=== PATIENT | female | born 1955 | race Caucasian/White ===

== ENCOUNTER 2020-03-10 11:16 | Outpatient (REF) | payer MEDICARE, SELFPAY ==
[2020-03-10 12:42] LABS: Cholesterol 196 mg/dL; HDL Cholesterol 68 mg/dL; LDL Cholesterol Calculated 119 mg/dl; Triglycerides 46 mg/dL
== END 2020-03-10 11:17 | disposition home or self-care (01) ==
LOC: HO.LAB 11:16
PROVIDERS: PCP Internal Medicine; Visit Provider Internal Medicine
DX: M81.0 Age-related osteoporosis without current pathological fracture (principal); Z00.00 Encounter for general adult medical examination without abnormal findings; E78.2 Mixed hyperlipidemia
CPT/HCPCS: 80061; 82306

== ENCOUNTER 2020-06-03 13:03 | Outpatient (REF) | payer MEDICARE, SELFPAY ==
[2020-06-03 14:10] LABS: Hematocrit 40.6 % (37-47); Mean Corpuscular Hemoglobin 29.1 pg (27.0-33.0); Mean Corpuscular Volume 90.8 fL (80-98); Mean Platelet Volume 12.7 fL (9.4-12.3); Platelet Count 175 X10*3/uL (160-400); Red Blood Count 4.47 X10*6/uL (4.20-5.50); Red Cell Distribution Width 14.8 % (11.0-16.0); White Blood Count 4.2 X10*3/uL (4.8-10.8)
== END 2020-06-03 13:04 | disposition home or self-care (01) ==
LOC: HO.LAB 13:03
PROVIDERS: PCP Internal Medicine; Visit Provider Internal Medicine
DX: D64.9 Anemia, unspecified (principal)
CPT/HCPCS: 36415; 85027

== ENCOUNTER 2020-07-29 12:13 | Outpatient (REF) | payer MEDICARE, SELFPAY ==
[2020-07-29 13:55] LABS: MANUAL DIFF FLAG NO
[2020-07-29 14:03] LABS: Basophils Percent Auto 0.9 % (0-2); Eosinophils Absolute Auto 0.1 X10*3/uL (0.0-0.4); Eosinophils Percent Auto 1.1 % (0-4); Hematocrit 39.6 % (37-47); Hemoglobin 12.5 g/dl (12.0-16.0); Imm Gran Abs Auto 0.01 X10*3/uL (0.00-0.03); Imm Gran Pct Auto 0.2 % (0.0-0.4); Lymphocytes Absolute Auto 1.3 X10*3/uL (1.2-4.9); Lymphocytes Percent Auto 28.7 % (20-40); Mean Corpuscular HGB Conc 31.6 g/dl (31.0-35.0); Mean Corpuscular Hemoglobin 28.5 pg (27.0-33.0); Mean Corpuscular Volume 90.4 fL (80-98); Mean Platelet Volume 12.4 fL (9.4-12.3); Monocytes Absolute Auto 0.5 X10*3/uL (0.1-1.2); Monocytes Percent Auto 10.3 % (2-11); Neutrophils Absolute Auto 2.6 X10*3/uL (2.0-8.3); Neutrophils Percent Auto 58.8 % (45-73); Platelet Count 191 X10*3/uL (160-400); Red Blood Count 4.38 X10*6/uL (4.20-5.50); White Blood Count 4.5 X10*3/uL (4.8-10.8)
[2020-07-29 14:29] LABS: Alanine Aminotransferase 16 U/L (0-31); Alkaline Phosphatase 80 U/L (39-117); Anion Gap 13 (12-20); Aspartate Amino Transferase 26 U/L (5-31); Bilirubin Direct 0.2 mg/dL (0.0-0.5); Bilirubin Total 0.5 mg/dL (0.0-1.0); Blood Urea Nitrogen 17 mg/dL (9-16); C Reactive Protein 0.17 mg/dL (< or = 0.50); Carbon Dioxide 23 mmol/L (22-29); Chloride 108 mmol/L (96-108); Estimated Glomerular Filt Rate > 60; Glucose Random 82 mg/dL (60-115); Potassium 4.3 mmol/L (3.3-5.1); Sodium 140 mmol/L (135-145); Total Protein 6.8 g/dL (6.5-8.0)
[2020-07-29 14:50] LABS: T4 Thyroxine 6.6 ug/dL (4.5-12.0); Thyroid Stimulating Hormone 1.16 uIU/mL (0.32-4.0)
[2020-07-29 15:03] LABS: Erythrocyte Sedimentation Rate 12 MM/HR (0-20)
[2020-07-30 13:57] LABS: Immunoglobulin A 214 mg/dL (70-320)
[2020-08-03 14:51] LABS: Gliadin Deamidated IgA Ab 3 Units; Gliadin Deamidated IgG Ab 2 Units
[2020-08-04 19:31] LABS: Transglutaminase Ab IgG 1 U/mL; Transglutaminase IgA 1 U/mL
[2020-08-05 15:41] LABS: Endomysial IgA Antibody Negative (Negative)
== END 2020-07-29 12:14 | disposition home or self-care (01) ==
LOC: HO.10HDL 12:13
PROVIDERS: Visit Provider Internal Medicine
DX: R19.4 Change in bowel habit (principal); R19.7 Diarrhea, unspecified; Z86.010 Personal history of colon polyps
CPT/HCPCS: 36415; 80051; 80076; 82565; 82784; 82947; 83516; 84436; 84443; 84520; 85025; 85652; 86140; 86255; 86256

== ENCOUNTER 2020-07-30 14:22 | Outpatient (REF) | payer MEDICARE, SELFPAY ==
[2020-07-30 15:16] LABS: Leukocytes Stool Qualitative NEGATIVE (NEGATIVE)
[2020-07-31 09:03] LABS: CDIFF Ag Negative (Negative); CDiff Toxin Negative (Negative)
[2020-07-31 09:04] LABS: CDIFF Internal ctrl Dots and bkg OK (V)
== END 2020-07-30 14:23 | disposition home or self-care (01) ==
LOC: HO.LNP 14:22
PROVIDERS: Visit Provider Internal Medicine
DX: R19.4 Change in bowel habit (principal); R19.7 Diarrhea, unspecified; Z86.010 Personal history of colon polyps
CPT/HCPCS: 87045; 87046; 87177; 87209; 87324; 87329; 87449; 89055

== ENCOUNTER 2020-08-26 21:45 | Outpatient (REF) | payer MEDICARE, SELFPAY | END 2020-08-26 21:46 | disposition home or self-care (01) | LOC: HO.LNP 21:45 | PROVIDERS: Visit Provider Internal Medicine | DX: A09 Infectious gastroenteritis and colitis, unspecified (principal) | CPT/HCPCS: 87177; 87209 ==

== ENCOUNTER 2020-09-15 06:39 | Day surgery (SDC) | payer MEDICARE, SELFPAY ==
--- NOTE | 2020-09-13 13:40 | HO.ANESPROP2 ---
Documented by User: Fatoumata Friedman 09/13/20 13:51 HPI - Anesthesia Eval Consult details Narrative: 64yo F for Colonoscopy PMFSH Active Problems Active Problems: All Active Problems (Updated 06/08/20 @ 11:24 by Olinda Donald NP) Diarrhea (Acute) Anemia (Acute) Vitamin D deficiency (Acute) Osteoporosis (Acute) Normal Pap smear (Acute) Normal colonoscopy (Acute) Lumbar degenerative disc disease (Acute) Mitral regurgitation (Acute) Hyperlipidemia (Acute) Past Medical History Medical History (Updated 09/15/20 @ 07:40 by Jaimie Potter) Anemia Depression History of mammogram Hyperlipidemia Lumbar degenerative disc disease Mitral regurgitation Normal colonoscopy Normal Pap smear Osteoporosis Vitamin D deficiency Family History Family History Father History of heart surgery Mother No problems noted. Maternal Grandfather Diabetes mellitus Maternal Grandmother No problems noted. Paternal Grandmother Cancer Surgical History Surgical History H/O colonoscopy History of laparoscopic appendectomy Social History Social History Alcohol intake: current Alcohol intake frequency: holidays/special occasions only Patient Tobacco Use Status: Never used Tobacco Use of substances other than those prescribed or required for medical reasons: No Are you DNR?: No Advance Directives: Yes Advance Directives on File: Yes Advance Directives Date on File: 09/15/20 Meds Allergies Allergy/AdvReac Type Severity Reaction Status Date / Time No Known Drug Allergies Allergy Unknown UNKNOWN Verified 06/08/20 10:31 Home Medications Medication Instructions Recorded Confirmed Last Taken Type escitalopram oxalate 10 mg tablet 15 mg PO DAILY 03/11/20 08/12/20 Unknown History flu vacc [id number](65yr up)-PF 240 ml IM 03/11/20 03/11/20 Unknown History mcg/0.7 mL intramuscular syringe varicella-zoster glycoE [id number] IM 03/11/20 03/11/20 Unknown History adj(PF) 50 mcg/0.5 mL IM susp, kit Exam Exam Date and Time: September 13, 2020 1340 Pertinent Lab Results Pertinent Lab Results: Laboratory Tests 07/29/20 07/29/20 12:20 12:20 WBC 4.5 L Hgb 12.5 Hct 39.6 Plt Count 191 Sodium 140 Potassium 4.3 Chloride 108 Carbon Dioxide 23 BUN 17 H Creatinine 0.82 Narrative Narrative: ECHO 2017 LV sys function normal. EF 60-65%. No RWMA. Mild MR Mild to mod TR Pulm artery systolic pressure is normal Assessment and Plan Assessment Anesthesia Assessment: Chart Reviewed Documented by User: Jaimie Potter 09/15/20 07:55 PMFSH Past Medical History Medical History (Updated 09/15/20 @ 07:40 by Jaimie Potter) Anemia Depression History of mammogram Hyperlipidemia Lumbar degenerative disc disease Mitral regurgitation Normal colonoscopy Normal Pap smear Osteoporosis Vitamin D deficiency Family History Family History Father History of heart surgery Mother No problems noted. Maternal Grandfather Diabetes mellitus Maternal Grandmother No problems noted. Paternal Grandmother Cancer Family history of problems with anesthesia: No Surgical History Surgical History H/O colonoscopy History of laparoscopic appendectomy History of Problems with Anesthesia: No Social History Social History Alcohol intake: current Alcohol intake frequency: holidays/special occasions only Patient Tobacco Use Status: Never used Tobacco Use of substances other than those prescribed or required for medical reasons: No Are you DNR?: No Advance Directives: Yes Advance Directives on File: Yes Advance Directives Date on File: 09/15/20 Meds Allergies Allergy/AdvReac Type Severity Reaction Status Date / Time No Known Drug Allergies Allergy Unknown UNKNOWN Verified 06/08/20 10:31 Home Medications Medication Instructions Recorded Confirmed Last Taken Type escitalopram oxalate 10 mg tablet 15 mg PO DAILY 03/11/20 08/12/20 Unknown History flu vacc [id number](65yr up)-PF 240 ml IM 03/11/20 03/11/20 Unknown History mcg/0.7 mL intramuscular syringe varicella-zoster glycoE [id number] IM 03/11/20 03/11/20 Unknown History adj(PF) 50 mcg/0.5 mL IM susp, kit Exam Height,Weight and Vital Signs: Vital Signs Temp Pulse Resp BP Pulse Ox 09/15/20 07:02 97.9 F 73 16 112/68 98 Pertinent Lab Results Pertinent Lab Results: 09/15/20: 12 lead EKG: SB 58. ?RBBB Airway Mallampati Class: II TM Dist: >3cm Neck ROM: Full Loose/Missing/Broken Teeth: No Heart: RRR ?murmur Lungs: CTAB Assessment and Plan Assessment Anesthesia Assessment: Anesthesia Plan Discussed and Chart Reviewed Final Anesthetic Review NPO: Yes ASA Class: II Final Preanesthetic Review: No Changes in Pt Med Stat, Meds/Allgs Chart Reviewed, Consent Obtained/Reviewed and Anes Risks/Benef Reviewed Patient Risk: Intermediate Procedure Risk: Low Assessment/Block/Sedation in SS: Assess/Block/Sedation-SS Anesthetic Plan Anesthetic Plan: MAC: Disposition: Standard PACU
--- NOTE | 2020-09-14 22:12 | MHC.SHP ---
Pre-Procedural Eval Section A The patient is an INPATIENT: No Changes since office visit: No Cold of Flu in the past 2 weeks, No New Medical Problems, No Changes in Medication and No Patient answered all questions The History & Physical has been completed within 30 days and I have reviewed it.: Yes Section B Chief Complaint: diarrhea, Allergies: Allergies Allergy/AdvReac Type Severity Reaction Status Date / Time No Known Drug Allergies Allergy Unknown UNKNOWN Verified 06/08/20 10:31 Plan I have reviewed the history and physical and performed a pertinent physical examination on my patient. No changes have occurred unless specified.
--- NOTE | 2020-09-15 | ECG_ITS ---
Test Reason : PRE OP Blood Pressure : / mmHG Vent. Rate : 058 BPM Atrial Rate : 058 BPM P-R Int : 170 ms QRS Dur : 096 ms QT Int : 458 ms P-R-T Axes : 076 042 064 degrees QTc Int : 449 ms Sinus bradycardia Otherwise normal ECG When compared with ECG of 03-JAN-2002 19:02, No significant change was found Referred By: Jaimie Potter Electronically Signed By:LORY NUNES
[2020-09-15 07:02] VITALS: BP 112/68; PULSE 73; RESP 16; TEMP 36.6; O2SAT 98; BMI 20.6
[2020-09-15] MEDS: Lactated Ringers 1,000 ML 100 ML IVCONT (07:14)
--- NOTE | 2020-09-15 07:45 | PC.NURSE ---
Patient hooked up to bedside monitor, when rhythm strip printed interpreted by 2 RNs as having bundle branch block. Anesthesia notified immediately as no prior EKG present in system for EKG order. Cardiology salon receptionist called, spoke with male, Bakari (name given by [facility]) and was told Anesthesia was putting in order currently, STAT as a pre op. Followed up after 10 mins due to no tech arriving, spoke with same male and was told Theres no order in kiddo . This RN told medical receptionist assistant I will put in verbal order now, please send tech now as its pre op and will delay procedure. This RN was told okay . Followed up again after 5 mins with no tech, spoke with Zahira and had Leyla down shortly there after for EKG.
[2020-09-15 08:47] VITALS: BP 92/45; PULSE 58; RESP 16; TEMP 36.1; O2SAT 98
--- NOTE | 2020-09-15 08:50 | PM.OP ---
Brief Operative Note Date of Service: 09/15/20 Pre-op diagnosis: Diarrhea Post-op diagnosis: other (Colon polyp, R/O microscopic colitis) Procedure: Colonoscopy to the cecum and TI with biopsies, and biopsy and removal of polyp Surgeon: Shashi Whaley Anesthesia: MAC Was an [employer]ist used for this Procedure?: No Estimated blood loss (mL): 3.0 Pathology: other (A. Terminal ileum B. Ascending colon C. Ascending colon polyp D. Descending colon) Condition: stable Disposition: PACU
[2020-09-15 09:02] VITALS: BP 107/59; PULSE 60; RESP 16; TEMP 36.1; O2SAT 99
--- NOTE | 2020-09-17 10:56 | OP_ITS ---
SURGEON: Shashi Whaley MD INDICATIONS: The patient presents for evaluation of change in bowel habits and diarrhea, as well as personal history of tubular adenoma of the colon. Full consent was obtained from her for this, including risks of bleeding and perforation. PREOPERATIVE DIAGNOSIS: POSTOPERATIVE DIAGNOSIS: PROCEDURE PERFORMED: ESTIMATED BLOOD LOSS: COMPLICATIONS: ANESTHESIA: Monitored anesthesia care. ASSISTANTS: SPECIMENS: PROCEDURES: Colonoscopy to cecum and terminal ileum with biopsies, and biopsy removal of polyp. PREOPERATIVE DIAGNOSES: Change in bowel habits, diarrhea, and personal history of tubular adenoma of the colon. POSTOPERATIVE DIAGNOSES: Change in bowel habits, diarrhea, and personal history of tubular adenoma of the colon, colon polyp, rule out microscopic colitis. DESCRIPTION OF PROCEDURE: The patient was placed in the left lateral decubitus position. The digital rectal exam revealed no abnormalities. The Olympus video pediatric colonoscope was entered into the rectum and advanced easily to the cecum. Once in the cecum, I did identify normal appearing cecal pouch with appendiceal orifice and a normal-appearing ileocecal valve. The terminal ileum was cannulated and appeared normal. Multiple biopsies were obtained from the ileum. The scope was withdrawn back in the colon. The entire cecum appeared normal. The scope was slowly withdrawn assessing all mucosal surfaces carefully. Preparation was excellent. In the ascending colon, was a flat approximately 4 mm polyp, which was biopsied and completely removed with cold biopsy forceps. I did not visualize any other polyps, colitis, nor angiodysplasia. Random biopsies were obtained in the ascending and descending colon. There was a mild amount of sigmoid diverticulosis. In the rectum, scope was retroflexed visualizing small internal hemorrhoids, but no other pathology. The rectal mucosa appeared normal. The scope was straightened out and withdrawn from the patient. She tolerated the procedure well and was returned to the recovery area in stable condition. IMPRESSION: 1. Small colon polyp, status post biopsy removal. 2. Rule out microscopic colitis. 3. Mild sigmoid diverticulosis. 4. Small internal hemorrhoids. PLAN: The results of the biopsy will be checked, but I would recommend a repeat colonoscopy in 5 years for further screening. In regard to her current symptoms, she does report that things are somewhat better after the 10-day course of Flagyl. A followup stool specimen was negative for any parasites. At this point, she will be treated symptomatically with some Imodium p.r.n. and hopefully her bowel movements will continue to improve as time goes on and the infection has been cleared. I will see her over the summer for a followup visit, but she will call sooner as needed. She was advised not to use any aspirin and NSAIDs for 1 week. MD NATY Downing/JUSTIN / [id number]
== END 2020-09-15 09:26 | disposition home or self-care (01) ==
PROVIDERS: PCP Internal Medicine; Visit Provider Internal Medicine
PROC: 0DJD8ZZ Inspection of Lower Intestinal Tract, Via Natural or Artificial Opening Endoscopic (ICD-10-PCS; CPT 45378; principal; 2020-09-15 07:30)
DX: R19.7 Diarrhea, unspecified (principal); R19.4 Change in bowel habit; D12.2 Benign neoplasm of ascending colon; K57.30 Diverticulosis of large intestine without perforation or abscess without bleeding; K64.8 Other hemorrhoids; Z86.010 Personal history of colon polyps
CPT/HCPCS: 45380; 88305; 93005

== ENCOUNTER 2020-10-13 09:38 | Outpatient (REF) | payer MEDICARE, SELFPAY ==
--- NOTE | ~2020-10-13 | XR_ITS ---
EXAMINATION: XR CHEST CLINICAL INFORMATION: History of muscle or tendon wall of the chest COMPARISON: Previous chest and right rib x-rays January 2019 TECHNIQUE: 2 views of the chest were obtained. FINDINGS: The cardiac and mediastinal contours are normal. The lungs are clear. The lungs are well inflated. There is no pleural effusion or pneumothorax. The bones appear osteopenic. No acute fracture is seen. XR/XR chest 2V IMPRESSION: No evidence for acute disease in the chest.
== END 2020-10-13 09:39 | disposition home or self-care (01) ==
LOC: HO.HMGCX 09:38
PROVIDERS: PCP Internal Medicine; Visit Provider Internal Medicine
DX: S29.011A Strain of muscle and tendon of front wall of thorax, initial encounter (principal)
CPT/HCPCS: 71046

== ENCOUNTER 2020-10-25 19:43 | Emergency (ER) | payer MEDICARE, SELFPAY ==
--- NOTE | ~2020-10-25 | XR_ITS ---
EXAMINATION: XR HAND AND WRIST, LEFT CLINICAL INFORMATION: Fall, pain and limited range of motion. COMPARISON: None TECHNIQUE: Left hand and wrist 4 views. FINDINGS: There is an acute comminuted fracture through the distal left radial metaphysis. The comminuted fragment demonstrates volar displacement with respect to the main bone shaft. There is likely intra-articular extension into the radiocarpal joint as well, although this is not well seen radiographically. Degenerative changes of the 1st metacarpophalangeal joint. XR/XR hand wrist LT IMPRESSION: Acute comminuted displaced fracture through the distal left radial metaphysis with probable intra-articular extension.
[2020-10-25 19:48] VITALS: BP 145/67; PULSE 83; RESP 18; TEMP 37.1; O2SAT 100; BMI 20.7
[2020-10-25] MEDS: Ibuprofen 600 MG TABLET PO (19:57)
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
[2020-10-25 21:34] VITALS: BP 121/63; PULSE 84; RESP 16; TEMP 36.7; O2SAT 97
== END 2020-10-25 21:54 | disposition home or self-care (01) ==
PROVIDERS: Emergency Provider Emergency Medicine; PCP Internal Medicine
DX: S62.102A Fracture of unspecified carpal bone, left wrist, initial encounter for closed fracture (principal); S50.311A Abrasion of right elbow, initial encounter; S80.211A Abrasion, right knee, initial encounter; V28.0XXA Motorcycle driver injured in noncollision transport accident in nontraffic accident, initial encounter; Y93.89 Activity, other specified; Y92.414 Local residential or business street as the place of occurrence of the external cause; Y99.9 Unspecified external cause status
CPT/HCPCS: 29515; 73110; 73130; 99284

== ENCOUNTER → 2020-10-26 12:17 | Outpatient (BNVA) | payer MEDICARE, SELFPAY | PROVIDERS: Visit Provider Orthopaedic Surgery | DX: S52.502A Unspecified fracture of the lower end of left radius, initial encounter for closed fracture (principal); L23.7 Allergic contact dermatitis due to plants, except food | CPT/HCPCS: 99202 ==

== ENCOUNTER 2020-11-01 09:57 | Outpatient (REF) | payer MEDICARE, SELFPAY ==
--- NOTE | ~2020-11-01 | XR_ITS ---
EXAMINATION: XR WRIST, LEFT CLINICAL INFORMATION: Left wrist fracture COMPARISON: Previous x-ray 10/25/2020 TECHNIQUE: 4 views of the left wrist. FINDINGS: There is a comminuted fracture of the left distal radius. Alignment appears unchanged with a volar displaced fracture fragment. No other fracture is seen. There is arthritis at the first ALF joint. Soft tissues are unremarkable.. XR/XR wrist LT min 3V IMPRESSION: No change in the left distal radius fracture.
== END 2020-11-01 09:58 | disposition home or self-care (01) ==
LOC: HO.XRAY 09:57
PROVIDERS: PCP Internal Medicine; Visit Provider Orthopaedic Surgery
DX: S52.572D Other intraarticular fracture of lower end of left radius, subsequent encounter for closed fracture with routine healing (principal); L23.7 Allergic contact dermatitis due to plants, except food
CPT/HCPCS: 73110; 99212

== ENCOUNTER 2020-11-02 07:10 | Day surgery (SDC) | payer MEDICARE, SELFPAY ==
[2020-11-02] VITALS (7 sets, daily range): BP systolic 112–138; BP diastolic 44–78; PULSE 56–78; RESP 16–18; TEMP 36.8–37.1; O2SAT 96–99; BMI 20.9
--- NOTE | ~2020-11-02 | FL_ITS ---
EXAMINATION: XR FLUOROSCOPY WITH IMAGES CLINICAL INFORMATION: Distal radial fracture, reduction. COMPARISON: Radiographs left wrist 11/01/2020, 10/25/2020. TECHNIQUE: Fluoroscopy performed by Dr. Demtera Chowdhury. Fluoroscopy time: 21 seconds DAP: 101.39 mGycm2 Images: 2 FINDINGS: Distal radial fracture is reduced with dorsal side plate and multiple screws. The hardware is intact. Fracture fragments are in near-anatomic alignment. There is slight negative ulnar variance. No dislocation or destructive process. FL/FL guidance in OR IMPRESSION: Status post open reduction internal fixation distal radial fracture.
--- NOTE | 2020-11-02 09:29 | MHC.SHP ---
Pre-Procedural Eval Section A Date of Service: 11/02/20 The patient is an INPATIENT: No The History & Physical has been completed within 30 days and I have reviewed it.: Yes Section B Chief Complaint: Unspecified Fracture Details of Present Illness: Left distal radius fracture Allergies: Allergies Allergy/AdvReac Type Severity Reaction Status Date / Time No Known Drug Allergies Allergy Unknown UNKNOWN Verified 11/01/20 13:06 Plan I have reviewed the history and physical and performed a pertinent physical examination on my patient. No changes have occurred unless specified.
--- NOTE | 2020-11-02 09:29 | W.PM.OPN ---
Operative Note Operative Note Date of Service: 11/02/20 Narrative: Operative Note Narrative: Preop diagnosis: Left intra-articular Distal radius fracture Postop diagnosis: Same Procedure: 1. Left Distal radius fracture open reduction internal fixation, 2 part intra-articular Surgeon: Demetra Chowdhury MD Anesthesia: Mac plus regional block Findings: Volar displacement of large radial styloid intra-articular fragment Implants: A 3 hole Accu Med volar locking plate, with four 2.3 mm locking pegs/screws, and 3 3.5 mm cortical screws Tourniquet time: 36 minutes EBL: 5.0 ml Specimen: None Drains: None Complications: None Disposition: Brought to the recovery room in stable condition Plan: Follow-up in 10-14 days for wound check, suture removal and postop radiographs The patient will be placed in either a volar wrist splint. Encouraged no lifting of anything heavier than a cell phone. Please encourage active and passive range of motion of the digits. Follow-up at 4-5 weeks postop for repeat radiographs. Indications: The patient is a 65 year old woman with a displaced comminuted intra-articular distal radius fracture . The risks and benefits of operative treatment, including but not limited to risk of damage to blood vessels, nerves, tendons, infection, recurrence, persistent pain or numbness, incomplete resolution of preoperative symptoms, or need for further surgery were discussed with the patient and they wished to proceed with surgery. Procedure: Once consent was obtained patient was brought back to the operating suite and placed in the operating table in a supine position. A regional block was performed by the anesthesia team. Perioperative antibiotics and anesthesia was administered by the anesthesia team. A tourniquet was applied to the proximal aspect of the left upper extremity and the limb was prepped and draped in a standard surgical fashion. The limb was elevated exsanguinated with Esmarch bandage and the tourniquet inflated to 250 mm of mercury for a total tourniquet time of 36 minutes. The FluoroScan was used throughout the case to assess our reduction, and facilitate implant placement. A gentle closed reduction was 1st performed on the patient's left distal radius fracture. Was assessed radiographically before proceeding with the reduction internal fixation. I then made an 8 cm longitudinal incision over the distal aspect of the flexor carpi radialis tendon. The incision was made through the skin to the subcutaneous tissue using a 15. Blade. Then carefully dissected down to flexor carpi radialis tendon she tenotomy scissors. The FCR tendon sheath was then incised longitudinally using tenotomy scissors under direct visualization. The FCR tendon was then retracted ulnarly. I then made a longitudinal incision in the volar forearm fascia through the floor of FCR tendon sheath using tenotomy scissors under direct visualization. I identified the interval between the radial artery and the flexor tendons. This interval was developed further with my index finger, releasing some of the muscular fibers of the flexor pollicis longus. A dull weatlander retractor was then placed. I then created an ulnarly based flap of the pronator quadratus by releasing the radial and distal edges using a 15. Blade. A Cosme elevator was used to elevate the pronator quadratus from the volar surface of the distal radius. This then revealed to us our distal radius fracture. There was a large intra-articular radial styloid fragment that was displaced volarly. An open reduction was then performed on our distal radius fracture. I then placed a short narrow 3 hole Accu Med volar locking plate on the volar surface of the distal radius. I placed a single K-wire through the distal aspect of the plate and into the distal radius. A 3.5 cortical screw was then placed through the oval hole after 1st drilling bicortically with a 2.8 mm drill. This was assessed using fluoroscopic images. I then removed the K-wire and loosened the 3.5 mm cortical screw in the shaft and slid the plate a few mm distally. The screw was again tightened. The fracture in implants were again visualized using fluoroscopic imaging, and I was satisfied with the placement of our plate. I then placed four 2.3 mm locking screws/pegs in the distal aspect of the plate and distal radius by 1st drilling bicortically with a 1.8 mm drill bit, measuring with a depth gauge, and placing the appropriate length locking screws/pegs. The placement of our plate and screws was then assessed again using fluoroscopic images. I then placed 2 additional 3.5 mm cortical screws to the proximal aspect of the plate and into the shaft of the radius. This was done by 1st drilling bicortically with a 2.8 mm drill bit, measuring with a depth gauge, and placing the appropriate length screws. Final radiographs were then obtained. The DRUJ was assessed and found to be stable on exam. I was satisfied with our reduction and placement of all implants. At this point the wound was irrigated with normal saline. The pronator quadratus was reduced back over the volar locking plate using some 3-0 Vicryl suture material. The tourniquet was then deflated and hemostasis was obtained with a brief period of local pressure and bipolar monopolar electrocautery. The subcutaneous layer was then reapproximated using some 4-0 Vicryl suture, and the skin edges were reapproximated using some 5 0 Prolene suture. The wound was then infiltrated with some 0.25% plain Marcaine postop pain control. A sterile dressing and a short dorsal splint allowing for active flexion and extension of the digits was applied. The patient appears to have tolerated the procedure well and with no complications. All digits were well vascularized conclusion of the case.
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
== END 2020-11-02 12:50 | disposition home or self-care (01) ==
PROVIDERS: PCP Internal Medicine; Visit Provider Orthopaedic Surgery
PROC: (CPT 25608; principal; 2020-11-02 08:30)
DX: S52.572A Other intraarticular fracture of lower end of left radius, initial encounter for closed fracture (principal); V28.0XXA Motorcycle driver injured in noncollision transport accident in nontraffic accident, initial encounter; Y93.89 Activity, other specified; Y92.481 Parking lot as the place of occurrence of the external cause; Y99.8 Other external cause status; L23.7 Allergic contact dermatitis due to plants, except food; D64.9 Anemia, unspecified; M81.0 Age-related osteoporosis without current pathological fracture; E55.9 Vitamin D deficiency, unspecified; Z79.899 Other long term (current) drug therapy
CPT/HCPCS: 25608; C1713; C1769; J0690; J1100; J2250; J2405

== ENCOUNTER 2020-11-08 13:01 | Outpatient (REF) | payer MEDICARE, SELFPAY ==
--- NOTE | ~2020-11-08 | XR_ITS ---
EXAMINATION: XR RIBS, LEFT CLINICAL INFORMATION: R07.81 - Pleurodynia COMPARISON: Chest radiographs 10/13/2020, 02/16/2019 TECHNIQUE: Frontal view chest and 3 views of the left ribs are obtained for a total of 4 views. FINDINGS: There are acute transverse fractures minimally displaced distal end left 8th and 9th ribs. There is no destructive process. There are no other acute or healing left rib fractures or rib destructive process. There is likely an old healed fracture left posterior lateral fifth rib. There is mild hyperinflation similar to prior studies. There is no pneumothorax, pleural reaction, airspace consolidation, or effusion. The costophrenic sulci are clear. The heart is within normal size. The hilar and mediastinal contours are normal. Remainder of the bony structures are unremarkable. XR/XR ribs LT min 3V w CXR1V IMPRESSION: 1. Minimally displaced acute fractures distal end left 8th and 9th ribs. No destructive process. 2. Mild hyperinflation. No pneumothorax, infiltrate, or effusion.
== END 2020-11-08 13:02 | disposition home or self-care (01) ==
LOC: HO.HMGCX 13:01
PROVIDERS: PCP Internal Medicine; Visit Provider Hospitalist
DX: R07.81 Pleurodynia (principal)
CPT/HCPCS: 71101

== ENCOUNTER 2020-11-15 09:36 | Outpatient (REF) | payer MEDICARE, SELFPAY ==
--- NOTE | ~2020-11-15 | XR_ITS ---
EXAMINATION: XR WRIST, LEFT CLINICAL INFORMATION: Left wrist pain. COMPARISON: Left wrist radiographs dated 11/01/2020 TECHNIQUE: PA, lateral, and oblique views of the left wrist. FINDINGS: Distal radial volar ORIF across the distal radial fracture. No acute hardware fracture. No perihardware lucency to suggest loosening or inflammation. The distal radial fracture is in near-anatomic alignment. No concerning lytic or blastic osseous lesion. Degenerative arthritis redemonstrated at the 1st carpometacarpal joint. XR/XR wrist LT min 3V IMPRESSION: Distal radial ORIF across the distal radial fracture without evidence of hardware complication.
== END 2020-11-15 09:37 | disposition home or self-care (01) ==
LOC: HO.HOSX 09:36
PROVIDERS: Visit Provider Orthopaedic Surgery
DX: S52.502D Unspecified fracture of the lower end of left radius, subsequent encounter for closed fracture with routine healing (principal); V19.3XXD Pedal cyclist (driver) (passenger) injured in unspecified nontraffic accident, subsequent encounter
CPT/HCPCS: 73110; 99212

== ENCOUNTER 2020-12-08 08:11 | Outpatient (REF) | payer MEDICARE, SELFPAY ==
--- NOTE | ~2020-12-08 | XR_ITS ---
EXAMINATION: XR WRIST, LEFT CLINICAL INFORMATION: Follow-up fracture COMPARISON: Previous x-rays most recent October 2020 TECHNIQUE: Three views of the left wrist. FINDINGS: There is a volar plate and screws transfixing the left distal radius fracture. Orthopedic hardware appears unchanged. Fracture lines appear more indistinct suggestive of healing. There is arthritis at the first CARE HOME joint with joint space narrowing and osteophyte formation. Carpal bones are otherwise unremarkable. Soft tissues are unremarkable. XR/XR wrist LT min 3V IMPRESSION: ORIF of left distal radius fracture. Arthritis at the first CARE HOME joint.
== END 2020-12-08 08:12 | disposition home or self-care (01) ==
LOC: HO.HOSX 08:11
PROVIDERS: Visit Provider Orthopaedic Surgery
DX: S52.502D Unspecified fracture of the lower end of left radius, subsequent encounter for closed fracture with routine healing (principal)
CPT/HCPCS: 73110; 99212

== ENCOUNTER 2021-01-07 11:00 | Outpatient (RCR) | payer MEDICARE, SELFPAY ==
--- NOTE | 2021-01-07 11:41 | MHC.OT.DC ---
[address] [phone] F: [phone] Occupational Therapy Discharge Note Provider: Dr Chowdhury Diagnosis: Post-op ORIF Left Distal Radius Date of Surgery: 11/02/20 Date of Evaluation: 12/24/20 Date of Discharge: 01/07/21 Treatments to Date: 3 Discharge Status: Achieved Goals Improved Function Independent with HEP Discharge Summary: Castillo is doing very well, pain free daily activities, good strength and ROM. Ind w/ home program and progression of strengthening. Electronically Signed By: Khushboo Abreu OTR/L Please Sign and return to therapist, thank you for your referral.
== END 2021-01-07 11:41 | disposition home or self-care (01) ==
LOC: HO.OT 11:00
PROVIDERS: PCP Internal Medicine; Visit Provider Orthopaedic Surgery
DX: S52.502D Unspecified fracture of the lower end of left radius, subsequent encounter for closed fracture with routine healing (principal)
CPT/HCPCS: 97035; 97110; 97140; 97165

== ENCOUNTER 2021-02-17 09:14 | Outpatient (REF) | payer MEDICARE, SELFPAY ==
[2021-02-17 09:54] LABS: Hematocrit 40.1 % (37.0-47.0); Hemoglobin 12.9 g/dl (12.0-16.0); Mean Corpuscular HGB Conc 32.2 g/dl (31.0-35.0); Mean Corpuscular Hemoglobin 28.7 pg (27.0-33.0); Mean Corpuscular Volume 89.3 fL (80.0-98.0); Mean Platelet Volume 11.8 fL (9.4-12.3); Platelet Count 181 X10*3/uL (160-400); Red Blood Count 4.49 X10*6/uL (4.20-5.50); Red Cell Distribution Width 14.4 % (11.0-16.0); White Blood Count 4.3 X10*3/uL (4.8-10.8)
[2021-02-17 10:12] LABS: Alanine Aminotransferase 21 U/L (0-31); Albumin Level 3.9 g/dL (3.5-5.0); Alkaline Phosphatase 81 U/L (39-117); Anion Gap 11 (12-20); Aspartate Amino Transferase 28 U/L (5-31); Bilirubin Total 0.5 mg/dL (0.0-1.0); Blood Urea Nitrogen 15 mg/dL (9-16); Calcium 9.7 mg/dL (8.4-10.2); Carbon Dioxide 26 mmol/L (22-29); Chloride 109 mmol/L (96-108); Cholesterol 224 mg/dL; Estimated Glomerular Filt Rate > 60; Glucose Fasting 94 mg/dL (60-99); HDL Cholesterol 75 mg/dL; LDL Cholesterol Calculated 138 mg/dl; Potassium 4.3 mmol/L (3.3-5.1); Sodium 142 mmol/L (135-145); Total Protein 6.7 g/dL (6.5-8.0); Triglycerides 57 mg/dL
[2021-02-17 10:28] LABS: TSH reflex Free T4 1.58 uIU/mL (0.32-4.0); Vitamin D 25-OH Total 63.8 ng/mL (>30)
== END 2021-02-17 09:15 | disposition home or self-care (01) ==
LOC: HO.LAB 09:14
PROVIDERS: PCP Internal Medicine; Visit Provider Internal Medicine
DX: E78.5 Hyperlipidemia, unspecified (principal); E55.9 Vitamin D deficiency, unspecified; M81.0 Age-related osteoporosis without current pathological fracture
CPT/HCPCS: 36415; 80053; 80061; 82306; 84443; 85027

== ENCOUNTER 2021-04-29 08:17 | Outpatient (REF) | payer MEDICARE, SELFPAY ==
--- NOTE | ~2021-04-29 | MM_ITS ---
EXAMINATION: MM SCREENING DIGITAL BREAST TOMOSYNTHESIS, BILATERAL CLINICAL INFORMATION: Screening. Asymptomatic. The lifetime risk of breast cancer based on the Tyrer-Cuzick Model is 7%. COMPARISON: Mammography: 11/15/2017, 11/03/2016, 05/20/2015 TECHNIQUE: Digital breast tomosynthesis is performed in both the craniocaudal and mediolateral oblique views along with computer-aided detection (CAD). Synthesized 2D images are generated from the tomosynthesis. FINDINGS: There are scattered areas of fibroglandular density (ACR BI-RADS breast composition Category b). There are no significant masses, abnormal calcifications, or other abnormalities. Parenchymal pattern is similar to prior studies. There is no developing density or architectural abnormality. The axilla and skin contours are unremarkable. No significant changes. MM/MM tomosynthesis screening BI IMPRESSION: No mammographic evidence of malignancy. ASSESSMENT: BI-RADS 1: Negative RECOMMENDATION: Routine annual mammography screening. This patient's information was entered into a reminder system with a target due date for their next mammogram.
--- NOTE | ~2021-04-29 | MM_ITS ---
EXAMINATION: BONE DENSITOMETRY CLINICAL INDICATION: Age-related osteoporosis without current pathological fracture. COMPARISON: Previous BD dated 05/01/2018 and baseline BD dated 11/23/2006. TECHNIQUE: Using a [employer] DXA System (software version: 13.1) manufactured by [employer], dual-energy x-ray absorptiometry was performed of the lumbar spine and left hip. The images are of good technical quality. Summary results are attached. FINDINGS: AP SPINE L1-L4: Current: BMD 0.837 g/cm2, Z-score -1.1, T-score -2.9, osteoporosis, 2.9% decrease from previous, 9.3% decrease from baseline (<5% change is not significant). Prior: BMD 0.862 g/cm2. Baseline: BMD 0.923 g/cm2. LEFT FEMUR, NECK: Current: BMD 0.621 g/cm2, Z-score -1.3, T-score -3.0, osteoporosis. Prior: BMD 0.656 g/cm2. Baseline: BMD 0.724 g/cm2. LEFT FEMUR, TOTAL: Current: BMD 0.629 g/cm2, Z-score -1.6, T-score -3.0, osteoporosis, 4.7% decrease from previous, 13.1% decrease from baseline (<5% change is not significant). Prior: BMD 0.660 g/cm2. Baseline: BMD 0.724 g/cm2. IDENTIFIED RISK FACTORS: History of adult fracture. Height loss. Menopause. HISTORY OF FRACTURE: Wrist. Other. MEDICATIONS: Calcium supplement and/or multivitamin. Vitamin D. MM/XR DEXA axial skeleton IMPRESSION: 1. DIAGNOSIS: Severe osteoporosis based on the lowest T-score value of -3.0 in the femoral neck and total femur and the prior history of fracture applying World Health Organization criteria. 2. 10-YEAR FRACTURE RISK PREDICTION, FRAX: Major osteoporotic fracture (clinical spine, forearm, hip or shoulder) 25.8%. Hip fracture 8.4%. 3. Treatment Recommendations: NOF guidelines recommend consideration for treatment in postmenopausal women and men age 50 and older presenting with the following: -A hip or vertebral (clinical or morphometric) fracture. -T-score less than or equal to -2.5 at the femoral neck or spine after appropriate evaluation to exclude secondary causes. -Low bone mass at the hip or spine and a 10-year fracture probability by FRAX of greater than or equal to 3% for hip fracture or greater than or equal to 20% for major osteoporotic fracture based on the [place] adapted WHO algorithm. 4. Other Recommendations: All treatment decisions require clinical judgment and consideration of individual patient factors, including patient preferences, comorbidities, previous drug use, risk factors not captured in the FRAX model (e.g. frailty, falls, vitamin D deficiency, increased bone turnover, interval significant decline in bone density) and possible under or overestimation of fracture risk by FRAX. Additional medical evaluation for secondary cause of low bone mineral density may be appropriate. FUTURE SCAN RECOMMENDATION: People with diagnosed cases of osteoporosis or at high risk for fracture should have regular bone mineral density tests. For patients eligible for Medicare, routine testing is allowed once every 2 years. The testing frequency can be increased to one year for patients who have rapidly progressing disease, those who are receiving or discontinuing medical therapy to restore bone mass, or have additional risk factors.
== END 2021-04-29 08:18 | disposition home or self-care (01) ==
LOC: HO.MAMMO 08:17
PROVIDERS: PCP Internal Medicine; Visit Provider Internal Medicine
DX: Z12.31 Encounter for screening mammogram for malignant neoplasm of breast (principal); Z13.820 Encounter for screening for osteoporosis; Z78.0 Asymptomatic menopausal state; Z79.899 Other long term (current) drug therapy
CPT/HCPCS: 77063; 77067; 77080

== ENCOUNTER 2021-08-20 09:17 | Outpatient (REF) | payer MEDICARE, SELFPAY ==
[2021-08-20 10:09] LABS: Cholesterol 239 mg/dL; HDL Cholesterol 73 mg/dL; LDL Cholesterol Calculated 157 mg/dl; Triglycerides 47 mg/dL
[2021-08-20 10:30] LABS: Vitamin D 25-OH Total 89.9 ng/mL (>30)
== END 2021-08-20 09:18 | disposition home or self-care (01) ==
LOC: HO.LAB 09:17
PROVIDERS: PCP Internal Medicine; Visit Provider Internal Medicine
DX: E78.5 Hyperlipidemia, unspecified (principal); M81.0 Age-related osteoporosis without current pathological fracture; E55.9 Vitamin D deficiency, unspecified
CPT/HCPCS: 36415; 80061; 82306

== ENCOUNTER 2022-10-04 09:12 | Outpatient (REF) | payer MEDICARE, SELFPAY ==
--- NOTE | ~2022-10-04 | MM_ITS ---
EXAMINATION: MM SCREENING DIGITAL BREAST TOMOSYNTHESIS, BILATERAL CLINICAL INFORMATION: Screening. Asymptomatic. The lifetime risk of breast cancer based on the Tyrer-Cuzick Model is 6.5%. COMPARISON: Mammography: This study is compared with prior exams dating back to 2018. TECHNIQUE: Digital breast tomosynthesis is performed in both the craniocaudal and mediolateral oblique views along with computer-aided detection (CAD). Synthesized 2D images are generated from the tomosynthesis. FINDINGS: There are scattered areas of fibroglandular density (ACR BI-RADS breast composition Category b). There are no significant masses, abnormal calcifications, or other abnormalities. MM/MM tomosynthesis screening BI IMPRESSION: No mammographic evidence of malignancy. ASSESSMENT: BI-RADS BI-RADS 1 - Negative RECOMMENDATION: Routine annual mammography screening. 1 year F/U This examination should not preclude the clinical evaluation of a suspicious palpable abnormality. This patient's information was entered into a reminder system with a target due date for their next mammogram.
== END 2022-10-04 09:13 | disposition home or self-care (01) ==
LOC: HO.MAMMO 09:12
PROVIDERS: Visit Provider Internal Medicine
DX: Z12.31 Encounter for screening mammogram for malignant neoplasm of breast (principal)
CPT/HCPCS: 77063; 77067

== ENCOUNTER → 2022-10-04 09:15 | Outpatient (BNV) | payer MEDICARE, SELFPAY | PROVIDERS: Visit Provider Radiology Diagnostic Radiology | DX: Z12.31 Encounter for screening mammogram for malignant neoplasm of breast (principal) | CPT/HCPCS: 77063; 77067 ==

== ENCOUNTER 2022-11-20 15:52 | Outpatient (AMB) | payer MEDICARE, SELFPAY ==
[2022-11-20 15:57] VITALS: BP 102/62; PULSE 61; TEMP 36.6; O2SAT 97; BMI 24.9
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
== END 2022-11-20 16:34 | disposition home or self-care (01) ==
PROVIDERS: PCP Internal Medicine; Visit Provider Internal Medicine
DX: S80.10XA Contusion of unspecified lower leg, initial encounter (principal)
CPT/HCPCS: 99214

== ENCOUNTER 2022-11-21 12:14 | Outpatient (REF) | payer MEDICARE, SELFPAY ==
[2022-11-21 12:44] LABS: Hematocrit 39.9 % (37.0-47.0); Hemoglobin 12.6 g/dl (12.0-16.0); Mean Corpuscular HGB Conc 31.6 g/dl (31.0-35.0); Mean Corpuscular Hemoglobin 28.8 pg (27.0-33.0); Mean Corpuscular Volume 91.3 fL (80.0-98.0); Mean Platelet Volume 12.3 fL (9.4-12.3); Platelet Count 170 X10*3/uL (160-400); Red Blood Count 4.37 X10*6/uL (4.20-5.50); Red Cell Distribution Width 14.4 % (11.0-16.0); White Blood Count 5.2 X10*3/uL (4.8-10.8)
[2022-11-21 14:20] LABS: Anion Gap 11 (12-20); Blood Urea Nitrogen 16 mg/dL (9-16); Calcium 10.2 mg/dL (8.4-10.2); Carbon Dioxide 26 mmol/L (22-29); Chloride 108 mmol/L (96-108); Estimated Glomerular Filt Rate > 60; Glucose Random 88 mg/dL (60-115); Potassium 4.4 mmol/L (3.3-5.1); Sodium 141 mmol/L (135-145)
== END 2022-11-21 12:15 | disposition home or self-care (01) ==
LOC: HO.LAB 12:14
PROVIDERS: PCP Internal Medicine; Visit Provider Internal Medicine
DX: S80.10XA Contusion of unspecified lower leg, initial encounter (principal); X58.XXXA Exposure to other specified factors, initial encounter; Y93.9 Activity, unspecified; Y92.9 Unspecified place or not applicable; Y99.9 Unspecified external cause status
CPT/HCPCS: 36415; 80048; 85027

== ENCOUNTER 2022-12-28 09:25 | Outpatient (AMB) | payer MEDICARE, SELFPAY ==
--- NOTE | 2022-12-28 09:38 | A.OFFVIS_ITS ---
Intake Vital Signs 12/28/22 09:41 Height 5 ft 4 in Weight 141 lb BMI 24.2 BP 110/64 Blood Pressure Location Lt brachial Position Sitting Pulse 62 Pulse Source Pulse Oximeter Pulse Oximetry (%) 96 Oxygen Delivery Method Room Air Intake Visit Reasons: SWV [id number] Allergies No Known Drug Allergies Allergy (Unknown, Verified 12/28/22 09:45) UNKNOWN Medication List - Last Reconciled 12/28/22 by Nickie Finn MD escitalopram oxalate 15 mg 4 days a week and 10 mg 3 days a week HPI SWV G0439 HPI Details Initiated the conversation about Advanced Directives. Advanced Directives help? patients prepare for current and future decisions about their medical treatment? and place of care. Discussed with patient that it is a process where a patients? current condition and prognosis are reviewed, their wishes for information? regarding their illness are elicited, and likely medical dilemmas are presented? and options discussed. The form can be amended as needed, reviewed yearly and? make changes as needed IPPE/AWV ? year old presents? for her ? Annual? Wellness Visit, initial visit.? Medical / Social History Reviewed? Past Medical History ?Yes? . ? [place]? of Care / Care Team list updated ?Yes . ? Surgical/Hospitalization? History ?Yes . ? Current Medications? (including OTC and supplements) ?Yes . ? Family History ?Yes? . ? Tobacco? Control form ?Yes . ? AUDIT-C (Alcohol use) form? ?Yes . ? Illicit drug use in Social? History ?Yes . ? Current diagnosis of? depression? ?No ? Appropriate PHQ2/PHQ9? completed ?Yes . ? Data entered by ?Medical? Survey Coordinator and reviewed by provider ? Fall Risk ? Fall? History? Have you had any falls with? injury in the past year? ?No . ? Have you had two or more? falls in the past year? ?No . ? Fall Risk Assessment: ?No? falls in the past year . ? HRA filled out by? the patient, reviewed by Provider and scanned. ? IPPE/AWV ? Balance? [place]? ?Yes . ? Tandem? walk ?Yes . ? Walk and? Turn ?Yes . ? Rise from? sit to stand ?Yes . ?Vision? Corrective? lens ?Yes ? Vision? screen ? Up-to-date, has an appointment [] for vision? screening and glaucoma screening ?Hearing? Whisper? test ?pass .? Initiated the conversation about Advanced Directives. Advanced Directives help? patients prepare for current and future decisions about their medical treatment? and place of care. Discussed with patient that it is a process where a patients? current condition and prognosis are reviewed, their wishes for information? regarding their illness are elicited, and likely medical dilemmas are presented? and options discussed. The form can be amended as needed, reviewed yearly and? make changes as needed Written? Plan?Completed. See Patient? Documents. Pt presents for annual. Pt reports episode of lightheadness when getting out of a car, after driving for up to for 30 minutes on and off for few years. She denies chest pain shortness of breath, palpitations, loss of consciousness, change in vision or balance. [facility] Medical History (Updated 12/28/22 @ 10:34 by Nickie Finn MD) Anxiety Cataract Annual physical exam Parasite infection Wrist fracture, left Anemia Normal Pap smear Lumbar degenerative disc disease Mitral regurgitation Hyperlipidemia Depression Osteoporosis History of mammogram Surgical History History of laparoscopic appendectomy H/O colonoscopy Family History Father History of heart surgery Mother No problems noted. Maternal Grandfather Diabetes mellitus Maternal Grandmother No problems noted. Paternal Grandmother Cancer Social History Housing: House Alcohol intake: current Alcohol intake frequency: a few times a month Patient Tobacco Use Status: Never used Tobacco e-Cigarette/Vaping Use: Never Used Advance Directives Date on File: 09/15/20 Current occupational status: retired Current occupation: rt handed Cognitive needs: No Hearing needs: No Vision needs: Yes Questionnaire Medicare Wellness Checkup What [age] 65-67 What gender do you identify with?: female During the past 4 weeks, how much have you been bothered by emotional problems such as feeling anxious, depressed, irritable, sad or downhearted, and blue?: slightly During the past 4 weeks, has your physical & emotional health limited your social activities with family, friends, neighbors, or groups?: not at all During the past 4 weeks, how much bodily pain have you generally had?: no pain During the past 4 weeks, was someone available to help you if you needed & wanted help?: yes, as much as I wanted During the past 4 weeks, what was the hardest physical activity you could do for at least 2 minutes?: very heavy Can you get to places out of walking distance without help? (For eg., can you travel alone on buses, taxis or drive your car?): Yes Can you go shopping for groceries or clothes without someone's help?: Yes Can you prepare your own meals?: Yes Can you do your housework without help?: Yes Because of any health problems, do you need the help of another person with your personal care needs such as eating, bathing, dressing or getting around the house?: No Can you handle your own money without help?: Yes During the past 4 weeks, how would you rate your health in general?: excellent During the past 4 weeks how have things been going for you?: pretty well Are you having difficulties driving your car?: no Do you always fasten your seat belt when you are in a car?: yes, usually During past 4 weeks, have you been bothered by the following: never: Trouble eating well?, Teeth or denture problems? and Problems using the telephone?, seldom: Sexual problems? and sometimes: Falling or dizzy when standing up and Tiredness or fatigue? Have you fallen 2 or more times in the past year?: No Are you afraid of falling?: No Are you a smoker?: no During the past 4 weeks, how many drinks of wine, beer, or other alcoholic beverages did you have?: 1 drink or less per week Do you exercise for about 20 minutes 3 or more times a week?: yes, some of the time Have you been given information to help with the following?: no: Hazards in your house that might hurt you? and no: Keeping track of your medications? How often do you have trouble taking medicines the way you have been told to take them?: I always take medicine as prescribed How confident are you that you can control & manage most of your health problems?: very confident What is your race?: White Mini Mental State Exam (MMSE) Orientation What is the (year) (season) (date) (day) (month)?: year, season, date, day and month Where are we (state) (county) (town or city) (hospital) (floor)?: state, county, town or city and hospital/clinic Registration Name of 3 unrelated objects clearly and slowly, then ask patient to repeat all 3 of them. (1st repeat determines score. Make sure they can repeat all three): object 1, object 2 and object 3 Attention & Calculation (CHOOSE ONE) Ask pt to begin with 100 & count backward by 7. Stop after 5 repeats. If pt cannot ask them to spell the word WORLD backward.: 93 Spell WORLD backwards (DLROW): 5 letters Recall Ask patient to repeat the 3 items from question #3.: object 1, object 2 and object 3 Language Show patient a wristwatch & ask what it is. Repeat for pencil.: watch and pencil Ask the patient to repeat the phrase 'No ifs, ands, or buts' after you.: correct Ask the patient to 'take a piece of paper with their right hand' 'fold paper in half' 'place paper on floor': take paper in right hand, fold paper in half and place paper on floor Print the sentence 'CLOSE YOUR EYES' on a piece. If patient actually closes eyes then score.: followed written direction Give patient a blank piece of paper & ask to write a sentence. Score if it contains a noun & verb.: sentence contains subject and verb Ask patient to copy figure of intersecting pentagons exactly. Score if all 10 angles & 2 intersects are included.: all 10 angles present & 2 are intersected Score Score: 30 Activity of Daily Living Bathing - sponge bath, tub bath or shower: receives no assistance (gets in/out by self, if usual bathing means Dressing - getting clothes from closets & drawers, including inner/outer garments & fasteners.: gets clothes & gets completely dressed without help Toileting - going to the 'toilet room' for urine/bowel elimination & cleaning self/arranging clothes: goes to toilet room, cleans self, arranges clothes without help Transfer: moves in & out of bed and chair without help (may use support object) Continence: controls urination/bowel movements completely by self Feeding: feeds self without help Total Score: 0 Information obtained from: patient Using telephone: independent Traveling: independent Shopping: independent Preparing meals: independent Housework: independent Taking medicine: independent Managing money: independent PHQ-9 Over the last 2 weeks, how often have you been bothered by any of the following problems? 1. Little interest or pleasure in doing things: not at all 2. Feeling down, depressed, or hopeless: several days 3. Trouble falling or staying asleep, or sleeping too much: not at all 4. Feeling tired or having little energy: several days 5. Poor appetite or overeating: not at all 6. Feeling bad about yourself - or that you are a failure or have let yourself or your family down: not at all 7. Trouble concentrating on things, such as reading the newspaper or watching television: not at all 8. Moving or speaking so slowly that other people could have noticed. Or the opposite - being so fidgety or restless that you have been moving around a lot more than usual: not at all 9. Thoughts that you would be better off or of hurting yourself in some way: not at all Total score: 2 Depression Screening Interpretation: Negative Source: Developed by Drs. Shashi Gomez, Dorie Beyer, Reyes Healy and colleagues, with an educational wali from [employer]. Review of Systems Const All systems reviewed & are unremarkable except as noted in HPI and below Reports no additional complaints Eyes Reports no additional complaints ENT Reports no additional complaints Card Reports no additional complaints Resp Reports no additional complaints GI Reports no additional complaints Reports no additional complaints Physical Exam Vital Signs: Last Vital Signs Pulse 62 12/28/22 09:41 BP 110/64 12/28/22 09:41 Pulse Ox 96 12/28/22 09:41 Oxygen Delivery Method Room Air 12/28/22 09:41 BMI result Body Mass Index 24.2 Const General: no acute distress HEENT Head: Yes normal to inspection Eyes General: appearance normal, both eyes and all related structures Neck Neck: Yes no lymphadenopathy and Yes supple Resp Effort & Inspection: normal respiratory effort Auscultation: clear to auscultation bilaterally Cardio Rhythm: regular rhythm Heart sounds: S1 normal heart sound present and S2 normal heart sound present GI Inspection: Yes normal to inspection Palpation (GI): Soft to palpation Percussion: Yes normal to percussion Auscultation: normal bowel sounds Assessment & Plan Assessment & Plan (1) Hyperlipidemia: Comment: pt declined statins Code(s): E78.5 - Hyperlipidemia, unspecified Plan: Patient have a fasting blood work today and will continue low-cholesterol (2) Vitamin D deficiency: Code(s): E55.9 - Vitamin D deficiency, unspecified Plan: Take vitamin-D 3 level today patient was advised to take 1000 units of vitamin-D 3 in the winter months (3) Annual physical exam: Code(s): Z00.00 - Encounter for general adult medical examination without abnormal findings Plan: Well-balanced diet and regular physical activity discussed with the patient. She is up-to-date with mammogram and colonoscopy. (4) Mitral regurgitation: Comment: Echo 10/2016 mild-mod MR Code(s): I34.0 - Nonrheumatic mitral (valve) insufficiency Plan: Obtain echocardiogram to follow-up on mitral valve regurgitation (5) Stress incontinence: Code(s): N39.3 - Stress incontinence (female) (male) Plan: Patient will try low-dose vaginal estrogen cream up to twice a a week Orders: Orders Comprehensive [place]. Panel Fast Today E55.9 - Vitamin D deficiency, unspecified, E78.5 - Hyperlipidemia, unspecified, Z00.00 - Encounter for general adult medical examination without abnormal findings TSH reflex Free T4 Today E55.9 - Vitamin D deficiency, unspecified, E78.5 - Hyperlipidemia, unspecified, Z00.00 - Encounter for general adult medical examination without abnormal findings Lipid Panel Today E55.9 - Vitamin D deficiency, unspecified, E78.5 - Hyperlipidemia, unspecified, Z00.00 - Encounter for general adult medical examination without abnormal findings UA w Microscopic Today E55.9 - Vitamin D deficiency, unspecified, E78.5 - Hyperlipidemia, unspecified, Z00.00 - Encounter for general adult medical examination without abnormal findings CA echo limited Today I34.0 - Nonrheumatic mitral (valve) insufficiency AMB EKG-In Office Today E78.5 - Hyperlipidemia, unspecified, I34.0 - Nonrheumatic mitral (valve) insufficiency, S80.10XA - Contusion of unspecified lower leg, initial encounter Complete Blood Count Auto Diff Today E55.9 - Vitamin D deficiency, unspecified, E78.5 - Hyperlipidemia, unspecified, Z00.00 - Encounter for general adult medical examination without abnormal findings Vitamin D 25-OH Total Today E55.9 - Vitamin D deficiency, unspecified, E78.5 - Hyperlipidemia, unspecified, Z00.00 - Encounter for general adult medical examination without abnormal findings Medications: New estradiol 0.01%(0.1mg/gram) 1 g vaginal 2XW 42.5 grams 1RF Quality Reporting (2019) Depression/Bipolar (159/160/161/177) PHQ-9: Total score: 2 Coding Level of Care Code Medicare Subsequent (G0439) Diagnoses Hyperlipidemia E78.5 Vitamin D deficiency E55.9 Annual physical exam Z00.00 Mitral regurgitation I34.0 Stress incontinence N39.3 CPT Codes Advance Care Planning - Time spent: 1-15 minutes, not on file ([id number]) Advance Care Planning Advance Care Planning discussion: Exists, not on file Forms completed: Health Care Proxy Time spent: 1-15 minutes, not on file
[2022-12-28 09:41] VITALS: BP 110/64; PULSE 62; O2SAT 96; BMI 24.2
== END 2022-12-28 10:34 | disposition home or self-care (01) ==
PROVIDERS: PCP Internal Medicine; Visit Provider Internal Medicine
DX: Z00.00 Encounter for general adult medical examination without abnormal findings (principal); E78.5 Hyperlipidemia, unspecified; E55.9 Vitamin D deficiency, unspecified; I34.0 Nonrheumatic mitral (valve) insufficiency; N39.3 Stress incontinence (female) (male)
CPT/HCPCS: 1124F; G0439

== ENCOUNTER 2022-12-28 10:31 | Outpatient (REF) | payer MEDICARE, SELFPAY ==
[2022-12-28 13:21] LABS: MANUAL DIFF FLAG NO
[2022-12-28 13:24] LABS: Eosinophils Absolute Auto 0.1 X10*3/uL (0.0-0.4); Eosinophils Percent Auto 2.3 % (0-4); Hematocrit 40.8 % (37.0-47.0); Hemoglobin 13.2 g/dl (12.0-16.0); Imm Gran Abs Auto 0.01 X10*3/uL (0.00-0.03); Imm Gran Pct Auto 0.3 % (0.0-0.4); Lymphocytes Absolute Auto 1.5 X10*3/uL (1.2-4.9); Lymphocytes Percent Auto 37.5 % (20-40); Mean Corpuscular HGB Conc 32.4 g/dl (31.0-35.0); Mean Corpuscular Volume 89.7 fL (80.0-98.0); Mean Platelet Volume 12.2 fL (9.4-12.3); Monocytes Absolute Auto 0.5 X10*3/uL (0.1-1.2); Monocytes Percent Auto 12.2 % (2-11); Neutrophils Absolute Auto 1.9 x10*3/uL (2.0-8.3); Neutrophils Percent Auto 46.7 % (45-73); Platelet Count 218 X10*3/uL (160-400); Red Blood Count 4.55 X10*6/uL (4.20-5.50)
[2022-12-28 13:44] LABS: Appearance Urine Clear; Color Urine Yellow; Glucose Urine UA Negative (Negative); Leukocyte Esterase Urine Negative (Negative); Nitrite Urine Negative (Negative); PH 7.5 (5.0-9.0); Urine Blood Negative (Negative); Urine Ketones Negative (Negative); Urine Protein Negative (Neg-Trace)
[2022-12-28 13:52] LABS: Bacteria Urine None Seen (None Seen); Hyaline Casts Urine 0-2 /LPF (0-2); RBC Urine 0-2 /HPF (0-2); Squamous Epithelial Cell Urine 0-2 /HPF (0-2); WBC Urine 0-5 /HPF (0-5)
[2022-12-28 14:09] LABS: Alanine Aminotransferase 14 U/L (0-31); Alkaline Phosphatase 80 U/L (39-117); Anion Gap 14 (12-20); Aspartate Amino Transferase 21 U/L (5-31); Bilirubin Total 0.5 mg/dL (0.0-1.0); Blood Urea Nitrogen 15 mg/dL (9-16); Calcium 10.2 mg/dL (8.4-10.2); Carbon Dioxide 24 mmol/L (22-29); Chloride 107 mmol/L (96-108); Cholesterol 233 mg/dL (<200); Estimated Glomerular Filt Rate > 60; Glucose Fasting 84 mg/dL (60-99); HDL Cholesterol 70 mg/dL (>40); LDL Cholesterol Calculated 150 mg/dL (<100); Sodium 141 mmol/L (135-145); Total Protein 7.2 g/dL (6.5-8.0); Triglycerides 68 mg/dL (<150)
[2022-12-28 14:25] LABS: TSH reflex Free T4 2.07 uIU/mL (0.32-4.0); Vitamin D 25-OH Total 74.8 ng/mL (>30)
== END 2022-12-28 10:32 | disposition home or self-care (01) ==
LOC: HO.HMGCLDS 10:31
PROVIDERS: PCP Internal Medicine; Visit Provider Internal Medicine
DX: Z00.00 Encounter for general adult medical examination without abnormal findings (principal); E55.9 Vitamin D deficiency, unspecified; E78.5 Hyperlipidemia, unspecified
CPT/HCPCS: 36415; 80053; 80061; 81001; 82306; 84443; 85025

== ENCOUNTER → 2023-02-14 14:02 | Outpatient (REF) | payer MEDICARE, SELFPAY ==
--- NOTE | 2023-02-14 14:09 | CA_ITS ---
Transthoracic Echocardiogram Patient (Last, First, Middle): Castillo Roche, Gender: Female Date of : 1955 Age: 67 Procedure Date: 02/14/2023 Procedure Type: Transthoracic Echocardiogram Location: OP Height: 167.64 cm Weight: 63.5 kg BSA: 1.72 m2 Heart Rate: bpm BP: 116 / 60 mmHg Stem Processing Machine Operator: Referring MD: Nickie Finn MD Symptoms: I34.0 - Nonrheumatic mitral (valve) insufficiency Study Quality: Good ECG Rhythm: Sinus Conclusions: - The left ventricular systolic function is normal. The calculated ejection fraction is 62% by biplane method. - No obvious valvular pathology seen on this study. Findings Left Ventricle Normal left ventricular cavity size. There is normal left ventricular wall thickness. The left ventricular systolic function is normal. The calculated ejection fraction is 62% by biplane method. There is no evidence of regional wall motion abnormalities. Diastolic function is normal for age. Right Ventricle Normal right ventricular cavity size and systolic function. Atria The left atrium is mildly dilated. The right atrium is normal in size. Aortic Valve The aortic valve was not well visualized. There is no aortic valve stenosis. There is no aortic valve regurgitation. Mitral Valve The mitral valve appears normal. There is trace mitral valve regurgitation. There is no mitral valve stenosis. Pulmonic Valve The pulmonic valve is likely normal. Tricuspid Valve Normal tricuspid valve structure. There is mild tricuspid valve regurgitation. There is no evidence of pulmonary hypertension. Great Vessels The asc aorta is normal in size. Venous The inferior vena cava is normal in size and collapses greater than 50% with inspiration. Pericardium/Pleural There is no evidence of pericardial effusion. Prior Study Comparison No significant change compared to prior study dated: 11/24/2016. Recommendations, Care & Conclusions No obvious valvular pathology seen on this study. Measurements 2D Linear Measurements IVSd: 0.92 0.6-0.9/0.6-1.0 cm LVIDd: 4.27 3.9-5.3/4.2-5.9 cm LVIDd Index: 2.48 2.4-3.2/2.2-3.1 cm/m2 LVIDs: 2.27 2.0-3.6 cm LVPWd: 0.81 0.7-1.1 cm Ao Root: 3.10 2.1-3.5 cm LA Diam: 2.80 2.7-3.8/3.0-4.0 cm LAIDs Index: 1.63 1.5-2.3 cm/m2 LV Mass: 144.01 67-162/88-224 g LV Mass Index: 83.73 43-95/49-115 g/m2 LVOT Diam: 2.10 3.0+(-)1.3 cm 2D Systolic Function EF 4C: 58.50 >55% EF 2C: 67.50 >55% EF BiP: 62.10 >55% Mitral Valve MV Pk E: 0.76 MV PK A: 0.73 MV Decel Time: 151.00 E/A: 1.00 E'Lateral: 7.29 E'Medial: 5.87 E/E' Med: 13.00 E/E' Lat: 10.50 PHT: 44.00 MVA PHT: 5.00 Decel Winn: 5.04 Aortic Valve AoV Pk Kenneth: 1.25 AoV Mn Kenneth: 0.88 AoV VTI: 0.39 AoV Pk Grad: 6.00 Aov Mn Grad: 4.00 HEIDY Cont.VTI: 1.82 LVOT LVOT Pk Kenneth: 0.74 LVOT Mn Kenneht: 0.50 LVOT VTI: 0.20 LVOT Pk Grad: 2.00 LVOT Mn Grad: 1.00 LVOT Diam: 2.10 LVOT Area: 3.46 Diastolic Function MV Pk E: 0.76 MV Pk A: 0.73 E/A: 1.00 E'Medial: 5.87 E/E' Med: 13.00 E' Laterial: 7.29 E/E' Lat: 10.50 Right Ventricle TAPSE (mm): 28.00 TVS' Kenneth: 9.00 Tricuspid Valve TR Pk Kenneth: 1.82 TR Pk Grad: 13.00 RA Press: 3.00 RVSP: 16.00 Great Vessels Aorta Ao Root-2D: 3.10 2.0-3.7 cm Ao Asc: 3.40 2.1-3.4 cm Pulmonary Valve PV Pk Kenneth: 0.71 Peak PV Grad: 2.00 Updated in Other Vendor System with Status of Final Alfa Bhat MD electronically signed on 02/16/2023 11:57:52 AM with status of Final
== END ==
LOC: HO.CARD 14:02
PROVIDERS: PCP Internal Medicine; Visit Provider Internal Medicine
DX: I34.0 Nonrheumatic mitral (valve) insufficiency (principal)
CPT/HCPCS: 93306

== ENCOUNTER → 2023-02-14 14:09 | Outpatient (BNV) | payer MEDICARE, SELFPAY | PROVIDERS: PCP Internal Medicine; Visit Provider Internal Medicine | DX: I34.0 Nonrheumatic mitral (valve) insufficiency (principal); I36.1 Nonrheumatic tricuspid (valve) insufficiency | CPT/HCPCS: 93306 ==

== ENCOUNTER 2023-05-09 08:08 | Outpatient (REF) | payer MEDICARE, SELFPAY ==
--- NOTE | ~2023-05-09 | MM_ITS ---
EXAMINATION: BONE DENSITOMETRY CLINICAL INDICATION: Asymptomatic menopausal state. COMPARISON: Previous BD dated 04/29/2021 and baseline BD dated 11/23/2006. TECHNIQUE: Using a [employer] DXA System (software version: 13.1) manufactured by [employer], dual-energy x-ray absorptiometry was performed of the lumbar spine and left hip. The images are of good technical quality. Summary results are attached. FINDINGS: LEFT FEMUR, NECK: Current: BMD 0.648 g/cm2, Z-score -1.1, T-score -2.8, osteoporosis. Prior: BMD 0.621 g/cm2. Baseline: BMD 0.724 g/cm2. LEFT FEMUR, TOTAL: Current: BMD 0.665 g/cm2, Z-score -1.3, T-score -2.7, osteoporosis, 5.7% increase from previous, 8.1% decrease from baseline (<5% change is not significant). Prior: BMD 0.629 g/cm2. Baseline: BMD 0.724 g/cm2. AP SPINE L1-L3 (excluding L4): The data of L1-L4 has been changed to exclude the L4 vertebral body, because degenerative sclerosis at this level may cause overestimation of lumbar spine density. Current: BMD 0.781 g/cm2, Z-score -1.5, T-score -3.2, osteoporosis, 2.0% decrease from previous, 13.6% increase from baseline (<5% change is not significant). Prior: BMD 0.797 g/cm2. Baseline: BMD 0.904 g/cm2. IDENTIFIED RISK FACTORS: Height loss, history of fracture (adult), osteoporosis, menopause. HISTORY OF FRACTURE: Wrist. Other. MEDICATIONS: Calcium. MM/XR DEXA axial skeleton IMPRESSION: 1. DIAGNOSIS: Severe osteoporosis based on the lowest T-score value of -3.2 in the lumbar spine and history of fracture applying World Health Organization criteria. 2. 10-YEAR FRACTURE RISK PREDICTION, FRAX: According to the guidelines, FRAX calculation should only be performed on patients in the osteopenia bone density category. Therefore, FRAX was not performed on this patient. 3. Treatment Recommendations: NOF guidelines recommend consideration for treatment in postmenopausal women and men age 50 and older presenting with the following: -A hip or vertebral (clinical or morphometric) fracture. -T-score less than or equal to -2.5 at the femoral neck or spine after appropriate evaluation to exclude secondary causes. -Low bone mass at the hip or spine and a 10-year fracture probability by FRAX of greater than or equal to 3% for hip fracture or greater than or equal to 20% for major osteoporotic fracture based on the [place] adapted WHO algorithm. 4. Other Recommendations: All treatment decisions require clinical judgment and consideration of individual patient factors, including patient preferences, comorbidities, previous drug use, risk factors not captured in the FRAX model (e.g. frailty, falls, vitamin D deficiency, increased bone turnover, interval significant decline in bone density) and possible under or overestimation of fracture risk by FRAX. Additional medical evaluation for secondary cause of low bone mineral density may be appropriate. FUTURE SCAN RECOMMENDATION: People with diagnosed cases of osteoporosis or at high risk for fracture should have regular bone mineral density tests. For patients eligible for Medicare, routine testing is allowed once every 2 years. The testing frequency can be increased to one year for patients who have rapidly progressing disease, those who are receiving or discontinuing medical therapy to restore bone mass, or have additional risk factors.
== END 2023-05-09 08:09 | disposition home or self-care (01) ==
LOC: HO.MAMMO 08:08
PROVIDERS: PCP Internal Medicine; Visit Provider Internal Medicine
DX: Z13.820 Encounter for screening for osteoporosis (principal); Z78.0 Asymptomatic menopausal state
CPT/HCPCS: 77080

== ENCOUNTER 2023-07-04 13:02 | Outpatient (AMB) | payer MEDICARE, SELFPAY ==
--- NOTE | 2023-07-04 09:53 | MHC.OFFVISPS ---
Intake Vital Signs 07/04/23 13:49 Height 5 ft 4 in Weight 142 lb Intake Visit Reasons: depression, LUÍS (generalized anxiety disorder), Dysthymia, ADHD Allergies No Known Drug Allergies Allergy (Unknown, Verified 12/28/22 09:45) UNKNOWN Medication List - Last Reconciled 07/04/23 by Gayle Gonzalez APRN escitalopram oxalate 15 mg 4 days a week and 10 mg 3 days a week HPI- Psychiatric Chief Complaint: depression, LUÍS (generalized anxiety disorder), Dysthymia, ADHD Intake Note: 67 yo woman with ADHD, anxiety and dysthymia in context of recent loss of both parents, in need of follow up for medication management HPI Narrative: Pt taking lexapro as prescribed; reports some weight gain and sexual side effects- she finds the side effects tolerable but does not want to increase dose. Pt becoming aware of a lack of tam in life when not busy or distracted; Pt grieving her father who in January 2023. Pt ended relationship with person she had been seeinfg for 20 months; pt working PT. she would like to start some creative projects. Pt reports she and siblings are supporting each other; Pt reports she feels the lexapro helps. Pt reports less depression and better energy with the lower lexapro; pt continues with ADHD symptoms but manages with lists and structure No GI upset or diarrhea. no SI of HI; no syncope; no episodes of dizziness; she has increase to weekly therapy due to more sadness, trouble with staying too busy to feel and aware of a lack of tam. Past Psychiatric History: no IPLOC, no PHP or IOP; outpatient therapy with Leslie Nolasco [facility] in [place] for years; long history of anxiety and dysthymia, recent dx of ADHD Panic attacks: No Agoraphobia: No Separation anxiety disorder: No Social phobia: Yes Specific phobia: No Hypochondriasis: No Body dysmorphic disorder: No Obsessive compulsive disorder: No Generalized anxiety: Yes Post traumatic stress disorder: No Acute stress disorder: No Previous psychiatric history: Yes Previous inpatient psychiatric hospitalization: No Other previous psychiatric treatment programs: none History of suicidal ideation: No History of suicide attempt: No Medically hospitalized: No History of self injurious behavior: No History of violence: No Current/previous psychiatrist: Lisa Current/previous therapist: leslie Nolasco Subjective Subjective Subjective Medication Compliance: Yes Side effects from medications: No Review of Systems Medical Review of Systems: unchanged Mental Status Exam Mental Status Exam Patient Appearance: Well Grooomed and Appropriate Patient Orientation: Person, Place, Time and Situation Level of Consciousness: Awake and Appropriate Patient Behavior: Appropriate and Anxious Mood Description: Anxious and Sad Affect Description: Anxious and Sad Ability to Follow Directions: Fair Speech Pattern: Clear Memory Description: Intact Hallucinations: None Delusions: Not Present Thought Process: Intact and Goal Oriented Thought Content: positive for Intact and positive for Goal Oriented Judgement: Fair Assessment and Plan Assessment & Plan (1) Generalized anxiety disorder: Code(s): F41.1 - Generalized anxiety disorder (2) Dysthymia: Code(s): F34.1 - Dysthymic disorder (3) ADHD (attention deficit hyperactivity disorder), inattentive type: Status: Acute Code(s): F90.0 - Attention-deficit hyperactivity disorder, predominantly inattentive type Plan continue lexapro 15 mg 3 times a week and 10 mg 4 times a week as discussed monitor for signs of depression continue exercise, therapy and explore creative activities pt will call when needs refill return in 2 months Counseling and coordination of Care Pt. Self Management counseling: Exercise, Maintenance-social rhythm, Mindfulness, Behavior activation and Organization skills and time management Medication management counseling: Effectiveness, Side effects, Dosing range, Duration, Drug interaction and Adherence Diagnosis and Prognosis Counseling: Accuracy of diagnosis, Prognosis over time, Impact of diagnosis on life functions, Impact of family relationship, Problematic behaviors secondary to diagnosis and Adequacy of current interventions Details: I spent 30 minutes reviewing the record, seeing the patient and documenting in the medical record. Counseling provided to the patient/caregiver as outlined below. Addressed patient/caregiver concerns regarding current medication regime including effective adherence. Addressed patient/caregiver concerns regarding diagnosis and prognosis including accuracy of diagnosis, prognosis over time, impact of diagnosis. Addressed patient/caregiver concerns regarding impact of recent stressors. [facility] Medical History (Updated 07/04/23 @ 10:01 by Gayle Gonzalez APRN) Anxiety Cataract Annual physical exam Parasite infection Wrist fracture, left Anemia Normal Pap smear Lumbar degenerative disc disease Mitral regurgitation Hyperlipidemia Depression Osteoporosis History of mammogram Surgical History History of laparoscopic appendectomy H/O colonoscopy Family History Father History of heart surgery Mother No problems noted. Maternal Grandfather Diabetes mellitus Maternal Grandmother No problems noted. 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
== END 2023-07-04 14:08 | disposition home or self-care (01) ==
LOC: HO.HOP 13:02
PROVIDERS: PCP Internal Medicine; Visit Provider Clinical Nurse Specialist Psychiatric/Mental Health
DX: F41.1 Generalized anxiety disorder (principal); F34.1 Dysthymic disorder; F90.0 Attention-deficit hyperactivity disorder, predominantly inattentive type
CPT/HCPCS: 99214

== ENCOUNTER → 2023-07-04 13:02 | Outpatient (BNVA) | payer MEDICARE, SELFPAY | PROVIDERS: PCP Internal Medicine; Visit Provider Clinical Nurse Specialist Psychiatric/Mental Health | DX: F41.1 Generalized anxiety disorder (principal); F34.1 Dysthymic disorder; F90.0 Attention-deficit hyperactivity disorder, predominantly inattentive type | CPT/HCPCS: 99212 ==

== ENCOUNTER 2023-08-17 10:03 | Outpatient (AMB) | payer MEDICARE, SELFPAY ==
--- NOTE | 2023-08-17 09:35 | MHC.OFFVISPS ---
Intake Intake Visit Reasons: depression Allergies No Known Drug Allergies Allergy (Unknown, Verified 12/28/22 09:45) UNKNOWN Medication List - Last Reconciled 08/17/23 by Gayle Gonzalez APRN escitalopram oxalate take 15 mg 4 days a week and 10 mg 3 days a week HPI- Psychiatric Chief Complaint: depression HPI Narrative: pt seen to day for f/u re: depression. pt reports increased sadness and daily anxiety; she feels the anxiety has always been there but she has not paid attention to it. now that she is not caretaking she has space to realize how anxious she has been; she has anxious feeling in chest accompanied by dizziness at times; discussed low BP and HR and will get EKG. Pt interested in TMS and esketamine as alternatives to antidepressants; she has tried lexapro, effexor, wellbutrin and zoloft - all have had limited benefit with side effects; she does not like weight gain and changes in libido caused by antidepressants; Past Psychiatric History: no IPLOC, no PHP or IOP; outpatient therapy with Leslie FARRIS in [place] for years; long history of anxiety and dysthymia, recent dx of ADHD Subjective Subjective Subjective Medication Compliance: Yes Side effects from medications: No Review of Systems Medical Review of Systems: unchanged Mental Status Exam Mental Status Exam Patient Appearance: Well Grooomed and Appropriate Patient Orientation: Person, Place, Time and Situation Level of Consciousness: Awake and Alert Patient Behavior: Appropriate Mood Description: Anxious and Sad Affect Description: Anxious and Sad Patient Cognition Impaired: No Ability to Follow Directions: Good Speech Pattern: Clear Memory Description: Intact Hallucinations: None Delusions: Not Present Thought Process: Intact and Goal Oriented Thought Content: positive for Intact and positive for Goal Oriented Judgement: Good Assessment and Plan Assessment & Plan (1) Anxiety: Status: Acute Code(s): F41.9 - Anxiety disorder, unspecified (2) Major depressive disorder, recurrent episode with anxious distress: Status: Acute Code(s): F33.9 - Major depressive disorder, recurrent, unspecified Plan lexapro 15 mg daily consider esketamine or TMS as alternatives to medications ekg to rule out cardiac etiology to chest discomfort and dizziness. return in 4-6 weeks Orders: Orders ECG 12 lead EKG Today F41.9 - Anxiety disorder, unspecified Counseling and coordination of Care Pt. Self Management counseling: Breathing, Maintenance-social rhythm, Mod caffeine/ETOH intake, Sleep hygiene, Behavior activation and General coping skills Medication management counseling: Effectiveness, Side effects, Dosing range, Duration, Drug interaction, Adherence and Other Diagnosis and Prognosis Counseling: Accuracy of diagnosis, Prognosis over time, Impact of diagnosis on life functions, Impact of family relationship, Problematic behaviors secondary to diagnosis and Adequacy of current interventions Details: I spent 45 minutes reviewing the record, seeing the patient and documenting in the medical record. Counseling provided to the patient/caregiver as outlined below. Addressed patient/caregiver concerns regarding current medication regime including effective adherence. Addressed patient/caregiver concerns regarding diagnosis and prognosis including accuracy of diagnosis, prognosis over time, impact of diagnosis. Addressed patient/caregiver concerns regarding impact of recent stressors. [facility] Medical History (Updated 08/17/23 @ 14:03 by Gayle Gonzalez APRN) Anxiety Cataract Annual physical exam Parasite infection Wrist fracture, left Anemia Normal Pap smear Lumbar degenerative disc disease Mitral regurgitation Hyperlipidemia Depression Osteoporosis History of mammogram Surgical History History of laparoscopic appendectomy H/O colonoscopy Family History Father History of heart surgery Mother No problems noted. Maternal Grandfather Diabetes mellitus Maternal Grandmother No problems noted. 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
== END 2023-08-17 11:41 | disposition home or self-care (01) ==
LOC: HO.HOP 10:03
PROVIDERS: PCP Internal Medicine; Visit Provider Clinical Nurse Specialist Psychiatric/Mental Health
DX: F41.9 Anxiety disorder, unspecified (principal); F33.9 Major depressive disorder, recurrent, unspecified
CPT/HCPCS: 99215

== ENCOUNTER 2023-08-17 10:03 | Outpatient (REF) | payer MEDICARE, SELFPAY ==
--- NOTE | 2023-08-17 11:16 | ECG_ITS ---
Test Reason : ANX D/O Blood Pressure : / mmHG Vent. Rate : 054 BPM Atrial Rate : 054 BPM P-R Int : 174 ms QRS Dur : 088 ms QT Int : 444 ms P-R-T Axes : 073 036 061 degrees QTc Int : 421 ms Sinus bradycardia Possible Left atrial enlargement Nonspecific ST abnormality Abnormal ECG When compared with ECG of 15-SEP-2020 07:48, No significant change was found Referred By: Gayle Gonzalez Electronically Signed By:JARRELL CRESPO MD
== END 2023-08-17 10:04 | disposition home or self-care (01) ==
LOC: HO.XRAY 10:03
PROVIDERS: PCP Internal Medicine; Visit Provider Clinical Nurse Specialist Psychiatric/Mental Health
DX: F41.9 Anxiety disorder, unspecified (principal); F33.9 Major depressive disorder, recurrent, unspecified
CPT/HCPCS: 93005; 99212

== ENCOUNTER → 2023-08-17 11:16 | Outpatient (BNV) | payer MEDICARE, SELFPAY | PROVIDERS: PCP Internal Medicine; Visit Provider Internal Medicine Cardiovascular Disease | DX: R00.1 Bradycardia, unspecified (principal) | CPT/HCPCS: 93010 ==

== ENCOUNTER 2023-09-07 10:35 | Outpatient (AMB) | payer MEDICARE, SELFPAY ==
--- NOTE | 2023-09-07 10:50 | A.OFFPSYCH_ITS ---
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 less sad however pt lost 2 friends from jehovah's witness recently and is also grieving loss of both parents 1.5 yrs ago; she also points out she will be turning 68 yrs old next month and feels sad about losses in her life including being single again. pt still looking onto ketamine as options for sadness. she has been trying to get a hold of [facility] for a consult. discussed EKG which is similar to one done in 2022. pt reports continued lightheadedness especially when going from sitting to standing; did orthostatic BP check in office- BP low 100/60 while sitting and same 100/60 when standing. pt will follow up with PCP. No si or hi. Past Psychiatric History: no IPLOC, no PHP or IOP; outpatient therapy with Leslie FARRIS in [place] for years; long history of anxiety and dysthymia, recent dx of ADHD Subjective Subjective Subjective Medication Compliance: Yes Side effects from medications: No Review of Systems Medical Review of Systems: unchanged Review of Systems Constitutional: Reports other (lightheaded when going from sitting to standing ) Mental Status Exam Mental Status Exam Patient Appearance: Well Grooomed and Appropriate Patient Orientation: Person, Place, Time and Situation Level of Consciousness: Awake, Appropriate and Alert Patient Behavior: Appropriate and Distractible Mood Description: Sad Affect Description: Sad Ability to Follow Directions: Good Speech Pattern: Clear and Delayed Memory Description: Episodic Impaired Hallucinations: None Delusions: Not Present Thought Process: Intact Thought Content: positive for Intact Judgement: Good Results Reviewed Results Reviewed: review of EKG and orthostatic BP Assessment and Plan Assessment & Plan (1) Major depressive disorder, recurrent episode with anxious distress: Status: Acute Code(s): F33.9 - Major depressive disorder, recurrent, unspecified (2) ADHD (attention deficit hyperactivity disorder), inattentive type: Status: Acute Code(s): F90.0 - Attention-deficit hyperactivity disorder, predominantly inattentive type Plan continue lexapro 15mg daily follow up with PCP re: lightheadedness and low BP support pt to have consult for ketamine tx at [facility] discussed TMS return in 6 weeks Medications: Changed From escitalopram oxalate take 15 mg 4 days a week and 10 mg 3 days a week 36 tabs 3RF To escitalopram oxalate 15 mg orally; 135 tabs 1RF 90 days Counseling and coordination of Care Pt. Self Management counseling: Maintenance-social rhythm, General coping skills and Greif counseling Medication management counseling: Effectiveness, Side effects, Dosing range, Duration, Drug interaction and Adherence Diagnosis and Prognosis Counseling: Accuracy of diagnosis, Prognosis over time, Impact of diagnosis on life functions, Impact of family relationship and Adequacy of current interventions Details: I spent 45 minutes reviewing the record, seeing the patient and documenting in the medical record. Counseling provided to the patient/caregiver as outlined below. Addressed patient/caregiver concerns regarding current medication regime including effective adherence. Addressed patient/caregiver concerns regarding diagnosis and prognosis including accuracy of diagnosis, prognosis over time, impact of diagnosis. Addressed patient/caregiver concerns regarding impact of recent stressors. [facility] Medical History (Updated 08/17/23 @ 14:03 by Gayle Gonzalez APRN) Anxiety Cataract Annual physical exam Parasite infection Wrist fracture, left Anemia Normal Pap smear Lumbar degenerative disc disease Mitral regurgitation Hyperlipidemia Depression Osteoporosis History of mammogram Surgical History History of laparoscopic appendectomy H/O colonoscopy Family History Father History of heart surgery Mother No problems noted. Maternal Grandfather Diabetes mellitus Maternal Grandmother No problems noted. 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
[2023-09-07 11:16] VITALS: BP 100/60
== END 2023-09-07 11:16 | disposition home or self-care (01) ==
LOC: HO.HOP 10:35
PROVIDERS: PCP Internal Medicine; Visit Provider Clinical Nurse Specialist Psychiatric/Mental Health
DX: F33.2 Major depressive disorder, recurrent severe without psychotic features (principal); F90.0 Attention-deficit hyperactivity disorder, predominantly inattentive type
CPT/HCPCS: 99215

== ENCOUNTER → 2023-09-07 10:35 | Outpatient (BNVA) | payer MEDICARE, SELFPAY | PROVIDERS: PCP Internal Medicine; Visit Provider Clinical Nurse Specialist Psychiatric/Mental Health | DX: F33.9 Major depressive disorder, recurrent, unspecified (principal); F90.0 Attention-deficit hyperactivity disorder, predominantly inattentive type | CPT/HCPCS: 99212 ==

== ENCOUNTER → 2023-10-11 15:45 | Outpatient (BNV) | payer MEDICARE, SELFPAY | PROVIDERS: PCP Internal Medicine; Visit Provider Radiology Diagnostic Radiology | DX: Z12.31 Encounter for screening mammogram for malignant neoplasm of breast (principal) | CPT/HCPCS: 77063; 77067 ==

== ENCOUNTER 2023-10-11 15:46 | Outpatient (REF) | payer MEDICARE, SELFPAY | END 2023-10-11 15:47 | disposition home or self-care (01) | LOC: HO.MAMMO 15:46 | PROVIDERS: PCP Internal Medicine; Visit Provider Internal Medicine | DX: Z12.31 Encounter for screening mammogram for malignant neoplasm of breast (principal) | CPT/HCPCS: 77063; 77067 ==

== ENCOUNTER 2023-11-02 10:11 | Outpatient (AMB) | payer MEDICARE, SELFPAY ==
--- NOTE | 2023-11-02 10:53 | A.OFFPSYCH_ITS ---
Intake Intake Visit Reasons: depression [employer] Required: No Allergies No Known Drug Allergies Allergy (Unknown, Verified 12/28/22 09:45) UNKNOWN Medication List - Last Reconciled 11/02/23 by Gayle Gonzalez APRN escitalopram oxalate 15 mg orally; 90 days HPI- Psychiatric Chief Complaint: depression HPI Narrative: pt reports mood stable; she is functioning well but continues to struggle with residual feelings of depression, feels fatigued, lack of tam, has frequent negative thoughts about herself. she worries frequently and has trouble relaxing. she often wants to stay in bed. has little interest or pleasure in doing things. She is taking lexapro 15 mg daily and had trouble tolerating an increase due to more fatigue and sexual side effects. she had a trial of venlafaxine with little to no efficacy. Past Psychiatric History: no IPLOC, no PHP or IOP; outpatient therapy with Leslie FARRIS in [place] for years; long history of anxiety and dysthymia, recent dx of ADHD Subjective Subjective Subjective Medication Compliance: Yes Side effects from medications: No Review of Systems Medical Review of Systems: unchanged Mental Status Exam Mental Status Exam Patient Appearance: Well Grooomed and Appropriate Patient Orientation: Person, Place, Time and Situation Level of Consciousness: Awake and Alert Patient Behavior: Appropriate Mood Description: Anxious and Sad Affect Description: Anxious and Sad Patient Cognition Impaired: No Ability to Follow Directions: Good Speech Pattern: Clear Memory Description: Intact Hallucinations: None Delusions: Not Present Thought Process: Intact and Goal Oriented Thought Content: positive for Intact and positive for Goal Oriented Judgement: Good Assessment and Plan Assessment & Plan (1) Major depressive disorder, recurrent episode with anxious distress: Status: Acute Code(s): F33.9 - Major depressive disorder, recurrent, unspecified Plan PHQ9 = 8 and GAD7 = 4 continue lexapro 15mg daily refer to [facility] for ketamine consult- t/c placed to office and left message Medications: Refilled escitalopram oxalate 15 mg orally; 135 tabs 1RF 90 days Counseling and coordination of Care Pt. Self Management counseling: Maintenance-social rhythm, Mod caffeine/ETOH intake, Sleep hygiene and Behavior activation Medication management counseling: Effectiveness, Side effects, Dosing range, Duration, Drug interaction and Adherence Diagnosis and Prognosis Counseling: Accuracy of diagnosis, Prognosis over time and Adequacy of current interventions Details: I spent 30 minutes reviewing the record, seeing the patient and documenting in the medical record. Counseling provided to the patient/caregiver as outlined below. Addressed patient/caregiver concerns regarding current medication regime including effective adherence. Addressed patient/caregiver concerns regarding diagnosis and prognosis including accuracy of diagnosis, prognosis over time, impact of diagnosis. Addressed patient/caregiver concerns regarding impact of recent stressors. [facility] Medical History (Updated 08/17/23 @ 14:03 by Gayle Gonzalez APRN) Anxiety Cataract Annual physical exam Parasite infection Wrist fracture, left Anemia Normal Pap smear Lumbar degenerative disc disease Mitral regurgitation Hyperlipidemia Depression Osteoporosis History of mammogram Surgical History History of laparoscopic appendectomy H/O colonoscopy Family History Father History of heart surgery Mother No problems noted. Maternal Grandfather Diabetes mellitus Maternal Grandmother No problems noted. 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
== END 2023-11-02 11:08 | disposition home or self-care (01) ==
LOC: HO.HOP 10:11
PROVIDERS: PCP Internal Medicine; Visit Provider Clinical Nurse Specialist Psychiatric/Mental Health
DX: F33.9 Major depressive disorder, recurrent, unspecified (principal)
CPT/HCPCS: 99214

== ENCOUNTER → 2023-11-02 10:11 | Outpatient (BNVA) | payer MEDICARE, SELFPAY | PROVIDERS: PCP Internal Medicine; Visit Provider Clinical Nurse Specialist Psychiatric/Mental Health | DX: F33.9 Major depressive disorder, recurrent, unspecified (principal) | CPT/HCPCS: 99212 ==

== ENCOUNTER 2023-12-26 08:05 | Outpatient (AMB) | payer MEDICARE, SELFPAY ==
--- NOTE | 2023-12-26 08:08 | MHC.PC.OV ---
Vital Signs 12/26/23 08:16 Height 5 ft 6 in Weight 149 lb 2 oz BMI 24.1 BP 118/68 Blood Pressure Location Lt brachial Position Left Lateral Respiration 14 Pulse 66 Pulse Source Pulse Oximeter Pulse Oximetry (%) 97 Oxygen Delivery Method Room Air Intake Visit Reasons: transfer from [facility] Intake Note: To establish care Allergies No Known Drug Allergies Allergy (Unknown, Verified 12/26/23 08:45) UNKNOWN Medication List - Last Reconciled 12/26/23 by Karma Ornelas, [facility] alendronate 70 mg PO QWEEK clobetasol 0.05% 1 appl topical BID escitalopram oxalate 15 mg orally; 90 days Tobacco use date assessed: 12/26/23 Dental Screening Dental Screen Date: 12/26/23 Did you have a dental visit in the last 12 months?: Yes Did you have a dental problem in the last 6 months where you did not have access to dental care?: No Was dental information given to patient?: Patient has dentist HPI HPI Comments History of Present Illness Details 68 y/o F with LUÍS, MDD, ADHD, HLD, VIt D def, Mitral Regurg, urinary incont, cataracts, anemia, lumbar DJD, lichen sclerosis , osteoporosis s/p appendectomy, oopherectomy Health Maintenance: Tdap 2015 Mammo 10/11/23 Colon 08/2020 Dr Whaley, 5 year repeat (2025) DEXA 05/2023 Specialists: [facility] Here today to est care. Coming from Dr Finn. Records reviewed. Has some complaints she would like to discuss. 1) Dizziness: At least 6 months, has had some dizziness, instant and a lot. Has happened before then. In Apr 2023 bought a car, happens a lot when getting out car; have to stop and take 10-15 seconds to feel steady on feet. Has monitored h20 intake.Feels good, 8 glasses per day. Known lower BP. Does not matter if short or long drive. Less significant recently, has not changed anything. Worse late spring, early summer. Happens sitting to standing. Denies chest pain, sob, syncope. 2) LBP from gardening. Ache, consistent. Have to pop out mid back, wants to know how to handle that. Started yoga again. Tight hips. Piraform stretch helps. Affecting her ADLs gardening. 3)Urinary incont: enrolled [facility] study 05/2023 had implant placed into L lower leg, works like acupuncture treatment. States this failed even after increase; thinks wire moved and was not touching the nerve. Will be having this replaced next sunday to try again. Wears pads all of the time. Not stress incont. Has done kegels. Did try the estrace w/o relief. No oral medications 4)Bilat knee OA - they are going Does not need surgery, has aching in both knees, worse w/ stair climbing. Feels weak as if they will give way. 5)Osteoporosis: on fosamax for 2 months, Did have consult w/ Endo @ [place], Will see her again in 1 year. Not taking MVI or Ca or D, Was on Vit d in the past, higher doses, advised to stop 6) Low energy levels. Feels despondant. Needs to sleep more. Feels easily defeated. Can sleep 9hrs/day. Wt gain of 10+ over the last few years, 10 years ago she was around 138 lbs. Started fasting. Exam Awake alert NAD PERRLA, no nystagmus RRR LS CTAB + orthostatic sx and VS No spinal tenderness or paraspinal tenderness NO edema BLE, skin intact, pulses WNL Mood and affect appropriate Orthostatic vs: 98/58 64 sitting 110/60 68 stand 94/56 55 lying 80/40 65 sitting Plan: Recommend Womens Once per day 50+ Topical diclofenac PRN to back/joints Encourage CORE exercise to help the back.=: Try [email or web address]/files/Core%20Strengthening%20Protocol.pdf Pelvic Floor exercise : Try [email or web address]/[email or web address]-exercises/ Get Sodium Chloride 1 gram tablets, take twice per day. Stay well hydrated. Slow position changes. Tight pants. Check sleep study to eval c/o fatigue Cardio work up * RTO 4 week f/u orthostasis, sooner PRN This note is constructed using voice recognition software. While every effort has been made to ensure accuracy in roving or yarn color checker, still errors may have been included Sometimes, these errors may affect the content or meaning of the given sentence . Total time spent caring for the patient today was 45 minutes. This includes time spent before the visit reviewing the chart, time spent during the visit, and time spent after the visit on documentation [facility] Medical History (Updated 12/29/23 @ 17:43 by Karma Ornelas [facility]) Shingles ADD (attention deficit disorder) Incontinence Arthritis Heart murmur High cholesterol Anxiety Cataract Annual physical exam Parasite infection Wrist fracture, left Anemia Normal Pap smear Lumbar degenerative disc disease Mitral regurgitation Hyperlipidemia Depression Osteoporosis History of mammogram Surgical History (Updated 12/26/23 @ 09:43 by Polina Yanez MA) Hx of appendectomy History of tonsillectomy History of laparoscopic appendectomy H/O colonoscopy Family History (Updated 12/26/23 @ 09:46 by Polina Yanez MA) Father History of heart surgery High cholesterol Cardiovascular disease Mother Cardiovascular disease Mental health disorder Maternal Grandfather Diabetes mellitus Cancer Maternal Grandmother Cancer Paternal Grandmother Cancer Sister Asthma Paternal Grandfather Cardiovascular disease Cancer Social History Housing: House Alcohol intake: current Alcohol intake frequency: a few times a month Patient Tobacco Use Status: Never used Tobacco e-Cigarette/Vaping Use: Never Used Advance Directives Date on File: 09/15/20 Current occupational status: retired Current occupation: rt handed Cognitive needs: No Hearing needs: No Vision needs: Yes Questionnaire PHQ-9 Over the last 2 weeks, how often have you been bothered by any of the following problems? 1. Little interest or pleasure in doing things: several days 2. Feeling down, depressed, or hopeless: several days 3. Trouble falling or staying asleep, or sleeping too much: not at all 4. Feeling tired or having little energy: several days 5. Poor appetite or overeating: several days 6. Feeling bad about yourself - or that you are a failure or have let yourself or your family down: several days 7. Trouble concentrating on things, such as reading the newspaper or watching television: not at all 8. Moving or speaking so slowly that other people could have noticed. Or the opposite - being so fidgety or restless that you have been moving around a lot more than usual: not at all 9. Thoughts that you would be better off or of hurting yourself in some way: not at all Total score: 5 Depression Screening Interpretation: Negative Depression Screening Done: Yes 39466 - PHQ-9 Billing: Yes Source: Developed by Drs. Shashi Gomez, Dorie Beyer, Reyes Healy and colleagues, with an educational wali from [employer]. Thrive Questionnaire Date Thrive assessed: 12/26/23 I am a: Patient What is your living situation today?: I have a steady place to live Within the past 12 months, did the food you bought not last and you didn't have the money to get more?: Never true Within the past 12 months, did you worry whether your food would run out before you got money to buy more?: Never true Do you have trouble paying for medicines?: No Do you have trouble getting transportation to medical appointments?: No Do you have trouble paying your heating and electricity bill?: No Do you have trouble taking care of your child, family member or friend?: No Do you have trouble with day-to-day activities such as bathing, preparing meals, shopping, managing finances, etc.?: No Are you currently unemployed and looking for a job?: No Are you interested in more education?: No Please select the resources that you would like help with: None Currently or been in a relationship where the following occur: No concerns reported THRIVE Score: 0 AUDIT C Alcohol Use Questionnaire (AUDIT-C) 1. How often do you have a drink containing alcohol?: 2-4 times a month 2. How many drinks containing alcohol do you have on a typical day when you are drinking?: 1 or 2 3. How often do you have six or more drinks on one occasion?: Never Total Score: 2 Score Reviewed/Action Taken: Yes LUÍS-7 AMB Questionnaire LUÍS-7 Date LUÍS - 7 assessed: 12/26/23 Feeling nervous, anxious, or on edge: 1 = Several days Not being able to stop or control worryin = Not at all Worrying too much about different things: 1 = Several days Trouble relaxin = Several days Being so restless that it is hard to sit still: 0 = Not at all Becoming easily annoyed or irritable: 0 = Not at all Feeling afraid as if something awful might happen: 0 = Not at all Total LUÍS-7 score (0-4 normal; 5-9 mild; 10-14 moderate; 15-21 severe): 3 Source: Developed by Drs. Shashi Gomez, Dorie Beyer, Reyes Healy and colleagues, with an educational wali from [employer]. LUÍS-7 Assessment Billing LUÍS-7 Assessment Tool: LUÍS-7 Assessment 28294 ACT Questionnaire In the past 4 weeks, how much of the time did your asthma keep you from getting as much done at work, school or at home?: None of the time During the past 4 weeks, how often have you had shortness of breath?: Not at all During the past 4 weeks, how often did your asthma symptoms wake you up at night or earlier than usual in the morning?: Not at all During the past 4 weeks, how often have you had to use your rescue inhaler or nebulizer medication?: Not at all How would you rate your asthma control during the past 4 weeks?: Completely controlled Score: 25 Physical exam (Primary Care) Vital Signs: Last Vital Signs Pulse 66 12/26/23 08:16 Resp 14 12/26/23 08:16 BP 118/68 12/26/23 08:16 Pulse Ox 97 12/26/23 08:16 Oxygen Delivery Method Room Air 12/26/23 08:16 BMI result Body Mass Index 24.1 Tobacco/Smoking Status: Tobacco use Status Tobacco use date assessed 12/26/23 12/26/23 08:19 Patient Tobacco Use Status Never used Tobacco 12/26/23 08:08 e-Cigarette/Vaping Use Never Used 12/26/23 08:08 PHQ-9: PHQ-9 Score PHQ-9: Total score 5 12/28/23 17:09 Depression Screening Interpretation: Negative Thrive Assessment: Date of Thrive Assessment Date Thrive assessed 12/26/23 12/26/23 09:47 Currently or been in a relationship where the following occur: No concerns reported Assessment and Plan Assessment & Plan (1) Orthostasis: Code(s): I95.1 - Orthostatic hypotension (2) Vitamin D deficiency: Code(s): E55.9 - Vitamin D deficiency, unspecified (3) Osteoporosis: Comment: DEXA SD -2.8 05/2018, pt declined treatment Code(s): M81.0 - Age-related osteoporosis without current pathological fracture Qualifiers: Osteoporosis type: age-related Presence of current pathological fracture: without current pathological fracture Qualified Code(s): M81.0 - Age-related osteoporosis without current pathological fracture (4) Lumbar degenerative disc disease: Comment: MRI 08/16 L4-5 disc bulge,L4 nerve root abut Code(s): M51.36 - Other intervertebral disc degeneration, lumbar region (5) Urinary incontinence: Code(s): R32 - Unspecified urinary incontinence Qualifiers: Urinary Incontinence type: continuous leakage Qualified Code(s): N39.45 - Continuous leakage (6) Major depressive disorder, recurrent episode with anxious distress: Code(s): F33.9 - Major depressive disorder, recurrent, unspecified (7) Hypersomnolence: Code(s): G47.10 - Hypersomnia, unspecified Orders: Orders RT home sleep study 12/26/23 G47.10 - Hypersomnia, unspecified Medications: New diclofenac sodium 1% apply to single elbow, wrist or hand; for hand includes palm/fingers/back of hand 2 grams topical QID PRN 100 grams 0RF pain Coding Level of Care Code Est Pt Level 5 (77815) Complex EM visit Add On G2211 Diagnoses Orthostasis I95.1 Vitamin D deficiency E55.9 Age-related osteoporosis without current pathological fracture M81.0 Osteoporosis type: age-related Presence of current pathological fracture: without current pathological fracture Lumbar degenerative disc disease M51.36 Continuous leakage of urine N39.45 Urinary Incontinence type: continuous leakage Major depressive disorder, recurrent episode with anxious distress F33.9 Hypersomnolence G47.10 Additional Codes LUÍS-7 Assessment Billing - LUÍS-7 Assessment Tool: LUÍS-7 Assessment [id number] ([id number])
[2023-12-26 08:16] VITALS: BP 118/68; PULSE 66; RESP 14; O2SAT 97; BMI 24.1
== END 2023-12-26 09:14 | disposition home or self-care (01) ==
PROVIDERS: PCP Nurse Practitioner Family; Visit Provider Nurse Practitioner Family
DX: I95.1 Orthostatic hypotension (principal); F33.9 Major depressive disorder, recurrent, unspecified; E55.9 Vitamin D deficiency, unspecified; M81.0 Age-related osteoporosis without current pathological fracture; M51.36 Other intervertebral disc degeneration, lumbar region; N39.45 Continuous leakage; G47.10 Hypersomnia, unspecified

== ENCOUNTER → 2023-12-26 08:05 | Outpatient (BNVA) | payer MEDICARE, SELFPAY | PROVIDERS: PCP Internal Medicine; Visit Provider Nurse Practitioner Family | DX: I95.1 Orthostatic hypotension (principal); E55.9 Vitamin D deficiency, unspecified; M81.0 Age-related osteoporosis without current pathological fracture; M51.36 Other intervertebral disc degeneration, lumbar region; N39.45 Continuous leakage; F33.9 Major depressive disorder, recurrent, unspecified; G47.10 Hypersomnia, unspecified | CPT/HCPCS: 96127; 99212 ==

== ENCOUNTER 2024-01-23 08:31 | Outpatient (AMB) | payer MEDICARE, SELFPAY ==
--- NOTE | 2024-01-23 08:33 | A.OFFPC_ITS ---
Vital Signs 01/23/24 08:37 01/23/24 08:42 01/23/24 08:43 Height 5 ft 6 in Weight 150 lb 8 oz BMI 24.3 BP 98/64 110/70 118/72 Blood Pressure Location Lt brachial Lt brachial Lt brachial Position Sitting Standing Supine Respiration 13 Pulse 69 75 65 Pulse Source Pulse Oximeter Pulse Oximeter Pulse Oximeter Pulse Oximetry (%) 98 99 98 Oxygen Delivery Method Room Air Room Air Room Air Intake Visit Reasons: 4 weeks fu orthostasis 30 min Intake Note: 4 week follow up Allergies No Known Drug Allergies Allergy (Unknown, Verified 01/23/24 08:36) UNKNOWN Medication List - Last Reconciled 01/23/24 by Karma Ornelas, [employer]- alendronate 70 mg PO QWEEK clobetasol 0.05% 1 appl topical BID diclofenac sodium 1% 2 grams topical QID PRN escitalopram oxalate 15 mg orally; 90 days Tobacco use date assessed: 12/26/23 Fall risk assessment: No Falls in past year Last assessed Fall Risk: 01/23/24 Dental Screening Dental Screen Date: 01/23/24 Did you have a dental visit in the last 12 months?: Yes Did you have a dental problem in the last 6 months where you did not have access to dental care?: No Was dental information given to patient?: Patient has dentist HPI HPI Comments History of Present Illness Details 68 y/o F with LUÍS, MDD, ADHD, HLD, VIt D def, Mitral Regurg, urinary incont, cataracts, anemia, lumbar DJD, lichen sclerosis , osteoporosis, elevated intact PTH s/p appendectomy, oopherectomy Health Maintenance: Tdap 2016 Mammo 10/11/23 Colon 08/2020 Dr Whaley, 5 year repeat (2025) DEXA 05/2023 Echo 01/2023 EF 62% The left atrium is mildly dilated, tace mitral valve regurgitation, mild tricuspid valve regurgitation, no significant change compared to prior study dated: 11/24/2016. Specialists: [facility] D[facility] Here today to f/u on orthostasis Started taking salt pills 8-9 days ago, missed 1-2 days. Has noticed as much dizziness. Was not drinking as much h20. Taking Na once per day. Was worried about taking more than once per day fearing bloating. LBP - did not try back exercises yet. Has the info. Also has some middle and upper back feels stuck can usually crack it out. Did not try pelvic floor exercises; did have new implant placed and turned on recently. Did not try the diclofenac, she did get it. Discussed use today. ok to apply to joints to include low back/spine. Started to womens once per day Sleep study scheduled 02/2024 New c/o itching under bilat breasts w/ rash that comes and goes; also occurs in between breasts. Has tried different sports bras. Tried OTC athletes foot cream and this did not help. Then tried triple paste w/o relief. Reviewed with her Labs 10/08/23 show a normal glucose, normal renal function, normal electrolytes, normal phosphorus normal ferritin, normal iron profile, normal LFTs, slightly elevated intact parathyroid 97, serum protein electrophoresis normal, TSH normal, vitamin-D normal Exam Awake alert NAD RRR LS CTAB NO edema BLE, skin intact, pulses WNL In between breasts and under R breast faint fungal rash Mood and affect appropriate Plan: Cont Womens Once per day 50+ Try Topical diclofenac PRN to back/joints Start CORE exercise to help the back.=: Try https://[email or web address]/sites/[email or web address]/files/Core%20Strengtheni ng%20Protocol.pdf Pelvic Floor exercise : Try [email or web address].org/rturerxdodui-ptgbpg-uvpjr-exercise s/ Improved orthostasis. Cont Sodium Chloride 1 gram tablets, takeonce to twice per day. Stay well hydrated. Slow position changes. Tight pants. Start Nystatin powder for fungal rash use until healed and then PRN. Keep skin clean and dry. Sleep study scheduled 02/2024 + self talk :) RTO end of Nov, early Dec for sAWV and f/u of sleep study results, sooner PRN This note is constructed using voice recognition software. While every effort has been made to ensure accuracy in back sizer, still errors may have been included Sometimes, these errors may affect the content or meaning of the given sentence . Total time spent caring for the patient today was 34 minutes. This includes time spent before the visit reviewing the chart, time spent during the visit, and time spent after the visit on documentation [facility] Medical History (Updated 01/23/24 @ 11:47 by Karma Ornelas [facility]) Shingles ADD (attention deficit disorder) Incontinence Arthritis Heart murmur High cholesterol Anxiety Cataract Annual physical exam Parasite infection Wrist fracture, left Anemia Normal Pap smear Lumbar degenerative disc disease Mitral regurgitation Hyperlipidemia Depression Osteoporosis History of mammogram Surgical History (Updated 12/26/23 @ 09:43 by Polina Yanez MA) Hx of appendectomy History of tonsillectomy History of laparoscopic appendectomy H/O colonoscopy Family History (Updated 12/26/23 @ 09:46 by Polina Yanez MA) Father History of heart surgery High cholesterol Cardiovascular disease Mother Cardiovascular disease Mental health disorder Maternal Grandfather Diabetes mellitus Cancer Maternal Grandmother Cancer Paternal Grandmother Cancer Sister Asthma Paternal Grandfather Cardiovascular disease Cancer Social History Housing: House Alcohol intake: current Alcohol intake frequency: a few times a month Patient Tobacco Use Status: Never used Tobacco e-Cigarette/Vaping Use: Never Used Advance Directives Date on File: 09/15/20 Current occupational status: retired Current occupation: rt handed Cognitive needs: No Hearing needs: No Vision needs: Yes Questionnaire PHQ-9 Over the last 2 weeks, how often have you been bothered by any of the following problems? 82202 - PHQ-9 Billing: Patient declined-do not bill Source: Developed by Drs. Shashi Gomez, Dorie Beyer, Reyes Healy and colleagues, with an educational wali from [employer]. Thrive Questionnaire Date Thrive assessed: 01/23/24 I am a: Patient What is your living situation today?: I have a steady place to live Within the past 12 months, did the food you bought not last and you didn't have the money to get more?: Never true Within the past 12 months, did you worry whether your food would run out before you got money to buy more?: Never true Do you have trouble paying for medicines?: No Do you have trouble getting transportation to medical appointments?: No Do you have trouble paying your heating and electricity bill?: No Do you have trouble taking care of your child, family member or friend?: No Do you have trouble with day-to-day activities such as bathing, preparing meals, shopping, managing finances, etc.?: No Are you currently unemployed and looking for a job?: No Are you interested in more education?: No Please select the resources that you would like help with: None Currently or been in a relationship where the following occur: No concerns reported THRIVE Score: 0 AUDIT C Alcohol Use Questionnaire (AUDIT-C) 1. How often do you have a drink containing alcohol?: 2-4 times a month Total Score: 2 LUÍS-7 AMB Questionnaire LUÍS-7 Date LUÍS - 7 assessed: 01/23/24 Feeling nervous, anxious, or on edge: 1 = Several days Not being able to stop or control worryin = Not at all Worrying too much about different things: 0 = Not at all Trouble relaxin = Not at all Being so restless that it is hard to sit still: 0 = Not at all Becoming easily annoyed or irritable: 0 = Not at all Feeling afraid as if something awful might happen: 0 = Not at all Total LUÍS-7 score (0-4 normal; 5-9 mild; 10-14 moderate; 15-21 severe): 1 Source: Developed by Drs. Shashi Gomez, Dorie Beyer, Reyes Healy and colleagues, with an educational wali from [employer]. LUÍS-7 Assessment Billing LUÍS-7 Assessment Tool: LUÍS-7 Assessment 90362 Physical exam (Primary Care) Vital Signs: Last Vital Signs Pulse 65 01/23/24 08:43 Resp 13 01/23/24 08:37 BP 118/72 01/23/24 08:43 Pulse Ox 98 01/23/24 08:43 Oxygen Delivery Method Room Air 01/23/24 08:43 BMI result Body Mass Index 24.3 Tobacco/Smoking Status: Tobacco use Status Tobacco use date assessed 12/26/23 01/23/24 08:35 Patient Tobacco Use Status Never used Tobacco 01/23/24 08:35 e-Cigarette/Vaping Use Never Used 01/23/24 08:35 Thrive Assessment: Date of Thrive Assessment Date Thrive assessed 01/23/24 01/23/24 08:35 Currently or been in a relationship where the following occur: No concerns reported Coding Level of Care Code Est Pt Level 4 (55489) Complex EM visit Add On G2211 Diagnoses Orthostasis I95.1 Continuous leakage of urine N39.45 Urinary Incontinence type: continuous leakage Hypersomnolence G47.10 Degeneration of intervertebral disc of lumbar region with discogenic back pain M51.360 Disc-related pain type: discogenic back pain only Fungal rash of torso B36.9 Additional Codes LUÍS-7 Assessment Billing - LUÍS-7 Assessment Tool: LUÍS-7 Assessment [id number] ([id number]) Assessment & Plan Assessment & Plan (1) Orthostasis: Code(s): I95.1 - Orthostatic hypotension Category: Medical Plan: . (2) Urinary incontinence: Code(s): R32 - Unspecified urinary incontinence Category: Medical Qualifiers: Urinary Incontinence type: continuous leakage Qualified Code(s): N39.45 - Continuous leakage Plan: . (3) Hypersomnolence: Code(s): G47.10 - Hypersomnia, unspecified Category: Medical Plan: . (4) Lumbar degenerative disc disease: Comment: MRI 08/16 L4-5 disc bulge,L4 nerve root abut Code(s): M51.36 - Other intervertebral disc degeneration, lumbar region Category: Medical Qualifiers: Disc-related pain type: discogenic back pain only Qualified Code(s): M51.360 - Other intervertebral disc degeneration, lumbar region with discogenic back pain only Plan: . (5) Fungal rash of torso: Code(s): B36.9 - Superficial mycosis, unspecified Category: Medical Plan: . Plan . Medications: New nystatin 1 appl topical TID PRN 60 grams 2RF rash
[2024-01-23 08:37] VITALS: BP 98/64; PULSE 69; RESP 13; O2SAT 98; BMI 24.3
[2024-01-23 08:42] VITALS: BP 110/70; PULSE 75; O2SAT 99
[2024-01-23 08:43] VITALS: BP 118/72; PULSE 65; O2SAT 98
== END 2024-01-23 09:10 | disposition home or self-care (01) ==
PROVIDERS: PCP Nurse Practitioner Family; Visit Provider Nurse Practitioner Family
DX: I95.1 Orthostatic hypotension (principal); N39.45 Continuous leakage; G47.10 Hypersomnia, unspecified; M51.360 Other intervertebral disc degeneration, lumbar region with discogenic back pain only; B36.9 Superficial mycosis, unspecified

== ENCOUNTER → 2024-01-23 08:31 | Outpatient (BNVA) | payer MEDICARE, SELFPAY | PROVIDERS: PCP Nurse Practitioner Family; Visit Provider Nurse Practitioner Family | DX: I95.1 Orthostatic hypotension (principal); N39.45 Continuous leakage; G47.10 Hypersomnia, unspecified; M51.360 Other intervertebral disc degeneration, lumbar region with discogenic back pain only; B36.9 Superficial mycosis, unspecified | CPT/HCPCS: 96127; 99212 ==

== ENCOUNTER 2024-03-04 11:44 | Outpatient (REF) | payer OTHER, MEDICARE, SELFPAY ==
--- NOTE | ~2024-03-04 | XR_ITS ---
EXAMINATION: XR RIBS, BILATERAL CLINICAL INFORMATION: Fall. COMPARISON: Left rib radiographs dated 11/08/2020. TECHNIQUE: PA view of the chest as well as 3 views of the bilateral wrists. FINDINGS: Lungs are clear. No consolidation, pneumothorax, or pleural effusion. The cardiomediastinal silhouette and pulmonary vasculature are normal. Osseous structures are unremarkable. Ribs are intact. No fractures are identified. XR/XR ribs BI min 4V w CXR1V IMPRESSION: No displaced rib fracture. Electronically signed by: Azam George MD 03/05/2024 09:55 AM [facility] [place]
--- NOTE | ~2024-03-04 | XR_ITS ---
EXAMINATION: XR SHOULDER, LEFT CLINICAL INFORMATION: Fall. Pain. COMPARISON: None available. TECHNIQUE: AP and scapular Y views of the left shoulder. FINDINGS: Minimally displaced, oblique fracture through the greater tuberosity along lateral aspect of the humeral head with a fracture gap measuring up to 0.1 cm along the periphery of the superior articular surface. Tiny adjacent cortical fracture fragment measuring 0.1 cm. There appears to be minimal cortical step-off posterosuperiorly measuring up to 0.3 cm on the scapular Y view. No dislocation. No joint space narrowing or marginal osteophytes. No osseous erosion. XR/XR shoulder LT min 2V IMPRESSION: Minimally displaced, oblique fracture through the greater tuberosity with a fracture gap measuring up to 0.1 cm along the periphery of the superior articular surface. Electronically signed by: Azam George MD 03/05/2024 10:09 AM [facility]
== END 2024-03-04 11:45 | disposition home or self-care (01) ==
LOC: HO.HMGCX 11:44
PROVIDERS: PCP Nurse Practitioner Family; Visit Provider Physician Assistant
DX: S43.402A Unspecified sprain of left shoulder joint, initial encounter (principal)
CPT/HCPCS: 71111; 73030; 99212

== ENCOUNTER 2024-03-04 13:50 | Outpatient (AMB) | payer OTHER, MEDICARE, SELFPAY ==
--- NOTE | 2024-03-04 15:13 | MHC.OFFWIV ---
Intake Vital Signs 03/04/24 15:14 Weight 152 lb BP 120/80 Blood Pressure Location Rt brachial Position Sitting Pulse 36 L Pulse Source Pulse Oximeter Pulse Oximetry (%) 99 Oxygen Delivery Method Room Air Intake Visit Reasons: EP pain on LT shoulder, rib cage Intake Note: Patient here because she had a fall yesterday while at work and fell on her left side and is now having pain in shoulder and rib cage. Patient Tobacco Use Status: Never used Tobacco Allergies No Known Drug Allergies Allergy (Unknown, Verified 03/04/24 15:16) UNKNOWN Do you need a note to return to daycare/school/sports/work: No HPI HPI Comments History of Present Illness Details History of Present Illness The patient is a 68-year-old female presenting with pain in the left shoulder and both ribs following a fall. 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 During the activity, the patient lost her balance, veered to the left, and fell forcefully onto her shoulder and ribcage. She described the fall involving her full weight of 150 pounds. Post-fall, she noted significant pain in the left shoulder and chest area, particularly in the ribcage. However, she was able to continue her workday without significant interruption. The patient denied any head injury or loss of consciousness during the fall and confirmed she is not on blood thinners. She reported limited ability to lift her arm without assistance and indicated soreness when using the shoulder muscles, particularly in elevation beyond shoulder level. 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 The patient has a history of osteoporosis and suspect fractures to the ribs have occurred previously, comparing her current symptoms to those past incidents. She mentioned an upcoming appointment with her primary care physician. Concerns were primarily regarding the musculoskeletal status of her shoulder and ribs, especially due to her known osteoporosis. [facility] Medical History (Updated 03/04/24 @ 16:08 by Yuli Brown PA-C) Shingles ADD (attention deficit disorder) Incontinence Arthritis Heart murmur High cholesterol Anxiety Cataract Annual physical exam Parasite infection Wrist fracture, left Anemia Normal Pap smear Lumbar degenerative disc disease Mitral regurgitation Hyperlipidemia Depression Osteoporosis History of mammogram Surgical History (Updated 12/26/23 @ 09:43 by Polina Yanez MA) Hx of appendectomy History of tonsillectomy History of laparoscopic appendectomy H/O colonoscopy Family History (Updated 12/26/23 @ 09:46 by Polina Yanez MA) Father History of heart surgery High cholesterol Cardiovascular disease Mother Cardiovascular disease Mental health disorder Maternal Grandfather Diabetes mellitus Cancer Maternal Grandmother Cancer Paternal Grandmother Cancer Sister Asthma Paternal Grandfather Cardiovascular disease Cancer Social History Housing: House Alcohol intake: current Alcohol intake frequency: a few times a month Patient Tobacco Use Status: Never used Tobacco e-Cigarette/Vaping Use: Never Used Advance Directives Date on File: 09/15/20 Current occupational status: retired Current occupation: rt handed Cognitive needs: No Hearing needs: No Vision needs: Yes Review of Systems Const All systems reviewed & are unremarkable except as noted in HPI and below Physical Exam Vital Signs: Last Vital Signs Pulse 36 L 03/04/24 15:14 BP 120/80 03/04/24 15:14 Pulse Ox 99 03/04/24 15:14 Oxygen Delivery Method Room Air 03/04/24 15:14 Const General: cooperative, healthy appearing, comfortable, no acute distress and well developed Orientation/consciousness: patient oriented x3 Limitations: no limitations HEENT Head: Yes normal to inspection Ears: hearing grossly normal bilaterally General nose exam: Normal external nose present Face and sinus: Yes normal facial exam Eyes General: appearance normal, both eyes and all related structures Neck Neck: Yes normal visual inspection and Yes full ROM Resp Effort & Inspection: normal respiratory effort and able to speak in complete sentences Back/Spine/Pelvis Cervical Spine: normal cervical lordosis, cervical ROM normal, No cervical muscular tenderness and No Cervical spine tenderness Skin General skin exam: no rashes or lesions noted Neuro General: patient oriented x3 Extrem General: Yes normal to inspection Left upper extremity: shoulder/upper arm (KT tape in place, empty can test neg, belly press neg, cannot perform Neers) Details: inspection abnormal, tenderness (at insertion point of biceps tendon) Location: of the proximal humerus; not of the clavicle, not of the A-C joint, not of the scapula, not of the mid-shaft humerus and not over the deltoid bursa and abnormal ROM Details: held in an abnormal fashion Details: in ABduction, pain with active ROM Details: in ABduction, in extension and in flexion; but not in ADduction, but not in internal rotation and external rotation- and pain with passive ROM Details: in ABduction, in extension and in flexion; but not in ADduction, but not in internal rotation and external rotation- and elbow/forearm Details: normal to inspection and normal ROM; no tenderness and no swelling Assessment & Plan Assessment & Plan (1) Fall: Code(s): W19.XXXA - Unspecified fall, initial encounter Qualifiers: Encounter type: initial encounter Qualified Code(s): W19.XXXA - Unspecified fall, initial encounter Plan: - For the fall injury resulting in shoulder and rib pain, imaging studies are recommended to evaluate for potential fractures or dislocations?the ribs bilaterally and the left shoulder will be x-rayed. My interpretation of x-rays show no rib fractures, no left shoulder/arm fx or dislocation. - Pain management includes rest, intermittent sling usage, and the application of ice to assist in reducing inflammation and alleviating pain. The patient should avoid prolonged (beyond 5-7 days ATC) immobility to prevent adhesive capsulitis frozen shoulder. The patient was given a sling fitted for comfort and additional support. Discussion on proper use was provided during the visit. - Advise regular use of ibuprofen for pain control and inflammation reduction. - Encourage gradual return to normal activity levels post-5 days, with an emphasis on avoiding activities that exacerbate the pain. - The patient will follow up with her primary care physician, Corrine Onrelas NP, for continuity of care. Further orthopedic evaluation is suggested if symptoms persist beyond two weeks or if shoulder mobility remains significantly impaired. Patient was informed and verbally consented to the use of an ambient scribe for clinic note documentation during this visit. (2) Sprain of left shoulder: Code(s): S43.402A - Unspecified sprain of left shoulder joint, initial encounter Qualifiers: Encounter type: initial encounter Shoulder sprain type: unspecified sprain Qualified Code(s): S43.402A - Unspecified sprain of left shoulder joint, initial encounter Plan: as above Orders: Orders XR shoulder LT min 2V Today W19.XXXA - Unspecified fall, initial encounter Coding Level of Care Code Est Pt Level 4 (88799) Diagnoses Fall, initial encounter W19.XXXA Encounter type: initial encounter Sprain of left shoulder, unspecified shoulder sprain type, initial encounter S43.402A Encounter type: initial encounter Shoulder sprain type: unspecified sprain
[2024-03-04 15:14] VITALS: BP 120/80; PULSE 36; O2SAT 99
--- OUTSIDE RECORDS SUMMARY | 2024-03-11 14:42 | XMS_ITS | Continuity of Care Document ---
Author Organization [facility] Address [address] [place] [address]- Care Team Providers Care Assembler Radio And Electrical Name Role Phone Nickie Finn MD Primary Care Physician [id number] Date(s): 10/19/23 - 02/14/24 [facility] [address] [place] [address]- Attending Physician: Julisa Spaulding MD Admitting Physician: Julisa Spaulding MD Referring Physician: Nickie Finn MD Encounter Type: Pre-OutPatient One Time Allergies, Adverse Reactions, Alerts No Known Allergies Medications alendronate 70 mg oral tablet 0 Refills, Maintenance, 01/16/24 4:17:00 PM EDT, Partial fill upon patient request if the prescription is for a schedule II opioid drug. Start Date: 01/16/24 Status: Ordered Repeat number: 1 Calcium Acetate By Mouth, 0 Refills, Maintenance, 05/09/23 1:12:00 PM EST, Partial fill upon patient request if the prescription is for a schedule II opioid drug. Start Date: 05/09/23 Status: Ordered Repeat number: 1 escitalopram 10 mg oral tablet By Mouth, Daily at bedtime, takes 15 mg daily, 0 Refills, Maintenance, 05/09/23 1:12:00 PM EST, Partial fill upon patient request if the prescription is for a schedule II opioid drug. Start Date: 05/09/23 Status: Ordered Repeat number: 1 Vitamin C By Mouth, Daily, 0 Refills, Maintenance, 05/09/23 1:12:00 PM EST, Partial fill upon patient request if the prescription is for a schedule II opioid drug. Start Date: 05/09/23 Status: Ordered Repeat number: 1 Problem List Condition Confirmation Course Effective Dates Status Health St atus Informant Anxiety Confirmed Active Heart murmur Confirmed Active Osteoporosis Confirmed Active Social History Social History Type Response Smoking Status Never (less than 100 in lifetime) entered on: 05/09/23 Sex Sex Representation Female (finding) Patient Care team information Care Team Personnel Name: Nickie Finn MD Position: S Physician - Primary Care Member Role: PCP Address: [address] Telecom: Care Team Related Persons Name: LESLIE TOPETE Name: RAMU LINN Insurance Providers Guarantor name: [employer]ORY Health Plan Information #: 2 Payer: MEDEX Member Number: [id number] Policy Number: NA Group Number: NA Health Plan Information #: 1 Payer: MEDICARE PART B OUTPT Member Number: [id number] Policy Number: NA Group Number: NA
--- OUTSIDE RECORDS SUMMARY | 2024-03-11 14:42 | XMS_ITS | Patient Health Record ---
Author Organization [facility] Address [address] [place] [id number] Care Team Providers Care Case Consultant Name Role Phone Nickie Finn MD Primary Care Provider Sabaa Shashi Young Unavailable [phone] REASON FOR REFERRAL No Information MEDICATIONS Medication SIG (Take, Route, Frequency, Duration) Notes Start Date End Date Status Calcium 500 MG 1 tablet with meals Orally Twice a day for 30 day(s) Active Multivitamin - 1 tablet Orally Once a day for 30 day(s) Active Escitalopram Oxalate 10 MG TAKE 1 AND 1/ 2 TABLETS BY MOUTH DAILY WITH FOOD Oral for 30 Active IMMUNIZATIONS Vaccine Route Administration Date Status Comme nts Influenza Unknown 01/01/2020 Administered SOCIAL HISTORY Sex Assigned At : Social History Observation Description Sex Assigned At Unknown Alcohol Screen Question Answer Notes Did you have a drink contain ing alcohol in the past year? Yes How often did you have a dri nk containing alcohol in the past year? 2 to 4 times a month (2 points) How many drinks did you have on a typical day when you were drinking in the past year? 1 or 2 drinks (0 point) How often did you have 6 or more drinks on one occasion in the past year? Never (0 point) Points 2 Interpretation Negative PROBLEMS Problem Type ICD Code Onset Dates Problem Status W/U Status Risk SNOMED Code Notes Problem Encounter for screening for malignant neoplasm of colon (Z12.11) Active confirmed 620803632 Problem Encounter for screening for malignant neoplasm of rectum (Z12.12) Active confirmed Screening for malignant neoplasm of rectum (566882801) Problem History of adenomatous polyp of colon (Z86.010) Active confirmed 397478836 Problem Preprocedural examination (Z01.818) Active confirmed 09686737 Problem Change in bowel habits (R19.4) Active confirmed 287036986 Problem Diarrhea, unspecified type (R19.7) Active confirmed 59393262 Problem Diarrhea of infectious origin (A09) Active confirmed 70162712 Problem Diverticulosis of large intestine without perforation or abscess without bleeding (K57.30) Active confirmed Diverticul ar disease of colon (531070111) PLAN OF TREATMENT Pending Test Test Name Order Date CHEM 7 PROFILE 07/29/2020 LIVER PROFILE 07/29/2020 TSH (THYROID STIMULATING HORMONE) 2020 CRP 07/29/2020 CBC w DIFF 07/29/2020 SED RATE (ESR) 07/29/2020 CELIAC PANEL #10 07/29/2020 OVA & PARASITES (O&P) 07/29/2020 CULTURE, STOOL 07/29/2020 STOOL WBC 07/29/2020 C DIFFICILE RFLX PCR 07/29/2020 Future Test Test Name Order Date COLONOSCOPY 08/31/2015 COLONOSCOPY 07/29/2020 COLONOSCOPY 08/31/2020 Insurance Providers Payer Name Payer Address Payer Phone Subscriber Number Group Number Insured Name Patient Relationship to Insured Coverage Start Date Coverage End Date MEDICARE OF [place] [address] [place] [address] [id number] FRANNY FRANCISCO Self - patient is the insured MEDEX ATTN CLAIMS [address] [place] [phone] [id number] FRANNY FRANCISCO Self - patient is the insured MEDICAL (GENERAL) HISTORY Medical History History ICD Code Tubular adenomas removed in 2006--neg colonoscopy in 2009 except for diverticulosis and internal hemorrhoids ADD/Anxiety Denies [place],DM,CVA,Lung disease,renal dise ase Neg. colonoscopy in 11/2015 Diarrhea in early 2020 with 4 different pathogens on the O&P--treated with 10 days of Flagyl in 07/2020, but with persistent symptoms as of her 08/31/2020 OV. Colonoscopy 08/2020 revealed a small tubular adenoma that was removed, but no evidence of any colitis nor ileitis in relation to the previous above infection--biopsies from the colon and terminal ileum were normal Urinary incontinence Surgical History Surgery Date(Month/Year) Appendectomy in 2013 Hernia-right inguinal Fractured left wrist--s/p surgery with a plate and screws 11/02/2020
== END 2024-03-04 16:13 | disposition home or self-care (01) ==
PROVIDERS: PCP Nurse Practitioner Family; Visit Provider Physician Assistant
DX: S43.402A Unspecified sprain of left shoulder joint, initial encounter (principal); W19.XXXA Unspecified fall, initial encounter

== ENCOUNTER 2024-03-05 08:07 | Outpatient (AMB) | payer MEDICARE, SELFPAY ==
--- NOTE | 2024-03-05 08:08 | A.OFFVIS_ITS ---
Intake Vital Signs 03/05/24 08:13 Height 5 ft 6 in Weight 154 lb BMI 24.9 BP 124/72 Blood Pressure Location Rt brachial Position Sitting Respiration 13 Pulse 80 Pulse Source Pulse Oximeter Pulse Oximetry (%) 99 Oxygen Delivery Method Room Air Intake Visit Reasons: end jan/early mar sAWV Intake Note: medicare wellness visit [employer] Required: No Allergies No Known Drug Allergies Allergy (Unknown, Verified 03/05/24 08:13) UNKNOWN Do you need a note to return to daycare/school/sports/work: No HPI HPI Comments History of Present Illness Details Here today for AWV. The Medicare Annual Wellness Visit (AWV) is a yearly appointment with a health professional to identify health risks and help reduce them and to create or update a personalized prevention plan. During a Medicare AWV, health professionals should also review any current opioid prescriptions, detect any cognitive impairment, and establish or update medical and family history. 68 y/o F with LUÍS, MDD, ADHD, HLD, VIt D def, Mitral Regurg, urinary incont, cataracts, anemia, lumbar DJD, lichen sclerosis , osteoporosis, elevated intact PTH s/p appendectomy, oopherectomy Health Maintenance: See scanned preventative medicine assessment with personalized health plan and screening schedule. Tdap 2015, COVID booster, Flu 2023, Shinges UTD, PCV Mammo 10/11/23 Colon 08/2020 Dr Whaley, 5 year repeat (2025) DEXA 05/2023 Echo 01/2023 EF 62% The left atrium is mildly dilated, tace mitral valve regurgitation, mild tricuspid valve regurgitation, no significant change compared to prior study dated: 11/24/2016. AAA screen: NA EKG: UTD in last 1 year Specialists/ [place] of Care: Pyroney & counselor Derm SurgHx: Y FHx: Y SocHx: Y Visual Acuity: Y wears glasses Hearing Screening: Y ACP: Info provided today Dietary/Nutrition/Exercise Edu provided: Y Results Labs10/08/23 show a normal glucose, normal renal function, normal electrolytes, normal phosphorus normal ferritin, normal iron profile, normal LFTs, slightly elevated intact parathyroid 97, serum protein electrophoresis normal, TSH normal, vitamin-D normal During the course of the visit the patient was educated and counseled about appropriate screening and preventative services. Patient instructions were provided to the patient in written or electronic format. I have reviewed and verified the above information. She also present w/ a problem: She had a mechanical fall and landed on her left side. She reports that she was playing soccer and went to turn to her left and fell down onto her left side. She was evaluated for her injuries at the walk-in. She was left shoulder pain and although she fell on her left side she has right rib pain. Has been using ibuprofen 200-400 mg sparingly to help the pain along with heat and ice. The pain on her ribs this underneath her right breast. She has limited and painful range of motion of the left shoulder. X-rays completed but read pending at this time. She specifically is worried about turning to her left and falling down. This is the 2nd instance of this occurring. The last time she was on her bic ycle and went to turn left and fell down. She denies any syncope. Denies any loss of consciousness. Denies any prodromal symptoms. Exam Awake alert NAD PERRLA, EOMI Neck FROM RRR LS CTAB, full inspiration w/o chest abnormality Pain over right anterior chest below breast w palpation Left arm ROM limited actively, able to move passively through full range, pain over anterior shoulder w/ palp, no pain over clavicle, skin intact, no erythema, warmth or ecchymosis. Neurovasc intact. Normal tone, strength, reflex BLE, Tandem walking mildly abnormal - unsteady with initial push off and plant of left foot but recovered, normal toe/heel walk, normal rhomberg, no pronator drift, CN intact. Plan: Wellness: sleep study 03/2024, labs today Cont Womens Once per day 50+ Probelm: Try Topical diclofenac PRN to joints Use sling PRN L shoulder pain, gentle exercises and ROM Splinting, deep breathing, supportive are using Ibu 600-800 mg TID w/ food PRN pain along w/ heat and ice. Edu about risk/complication for PNA w/o deep breathing. Consider MRI/imaging of brain/back to eval RTO 4-6 months routine fu, sooner PRN An additional 30 minutes was spent addressing the problem(s) noted at todays visit. This includes time spent before the visit reviewing the chart, time spent during the visit, and time spent after the visit on documentation After the visit, I sent her the following message: Hi, a few things 1st I saw that you do have a fracture of that left arm. I am sorry to see that. In regards to follow up from our office visit, I know we discussed imaging of the brain however as I thought about it more I think that we should start with imaging of your lower back to see if there is anything there that is causing your gait disturbance. You do have the implant for the urinary incontinence and I am not sure if this will affect the ability to have an MRI done or not. I just want to check with you to see if you are okay with me ordering an MRI of the spine rather than an MRI of the brain? And if so, understand that the implant itself may be a contraindicated. Karma @ this time, waiting for reply & will order. [facility] Medical History (Updated 03/07/24 @ 08:19 by Karma Ornelas, [facility]) Shingles ADD (attention deficit disorder) Incontinence Arthritis Heart murmur High cholesterol Anxiety Cataract Annual physical exam Parasite infection Wrist fracture, left Anemia Normal Pap smear Lumbar degenerative disc disease Mitral regurgitation Hyperlipidemia Depression Osteoporosis History of mammogram Surgical History (Updated 12/26/23 @ 09:43 by Polina Yanez MA) Hx of appendectomy History of tonsillectomy History of laparoscopic appendectomy H/O colonoscopy Family History (Updated 12/26/23 @ 09:46 by Polina Yanez MA) Father History of heart surgery High cholesterol Cardiovascular disease Mother Cardiovascular disease Mental health disorder Maternal Grandfather Diabetes mellitus Cancer Maternal Grandmother Cancer Paternal Grandmother Cancer Sister Asthma Paternal Grandfather Cardiovascular disease Cancer Social History Housing: House Alcohol intake: current Alcohol intake frequency: a few times a month Patient Tobacco Use Status: Never used Tobacco e-Cigarette/Vaping Use: Never Used Advance Directives Date on File: 09/15/20 Current occupational status: retired Current occupation: rt handed Cognitive needs: No Hearing needs: No Vision needs: Yes Questionnaire Medicare Wellness Checkup [age] What gender do you identify with?: female During the past 4 weeks, how much have you been bothered by emotional problems such as feeling anxious, depressed, irritable, sad or downhearted, and blue?: moderately During the past 4 weeks, has your physical & emotional health limited your social activities with family, friends, neighbors, or groups?: not at all During the past 4 weeks, how much bodily pain have you generally had?: no pain During the past 4 weeks, was someone available to help you if you needed & wanted help?: yes, as much as I wanted During the past 4 weeks, what was the hardest physical activity you could do for at least 2 minutes?: moderate Can you get to places out of walking distance without help? (For eg., can you travel alone on buses, taxis or drive your car?): Yes Can you go shopping for groceries or clothes without someone's help?: Yes Can you prepare your own meals?: Yes Can you do your housework without help?: Yes Because of any health problems, do you need the help of another person with your personal care needs such as eating, bathing, dressing or getting around the house?: No Can you handle your own money without help?: Yes During the past 4 weeks, how would you rate your health in general?: excellent During the past 4 weeks how have things been going for you?: pretty well Are you having difficulties driving your car?: no Do you always fasten your seat belt when you are in a car?: yes, usually During past 4 weeks, have you been bothered by the following: never: Trouble eating well?, Teeth or denture problems? and Problems using the telephone? and seldom: Falling or dizzy when standing up and Tiredness or fatigue? Have you fallen 2 or more times in the past year?: No Are you afraid of falling?: No Are you a smoker?: no During the past 4 weeks, how many drinks of wine, beer, or other alcoholic beverages did you have?: 1 drink or less per week Do you exercise for about 20 minutes 3 or more times a week?: yes, some of the time Have you been given information to help with the following?: no: Hazards in your house that might hurt you? and no: Keeping track of your medications? How often do you have trouble taking medicines the way you have been told to take them?: I always take medicine as prescribed How confident are you that you can control & manage most of your health problems?: very confident What is your race?: White Activity of Daily Living Bathing - sponge bath, tub bath or shower: receives no assistance (gets in/out by self, if usual bathing means Dressing - getting clothes from closets & drawers, including inner/outer garments & fasteners.: gets clothes & gets completely dressed without help Toileting - going to the 'toilet room' for urine/bowel elimination & cleaning self/arranging clothes: goes to toilet room, cleans self, arranges clothes without help Transfer: moves in & out of bed and chair without help (may use support object) Continence: controls urination/bowel movements completely by self Feeding: feeds self without help Total Score: 0 Information obtained from: patient Using telephone: independent Traveling: independent Shopping: independent Preparing meals: independent Housework: independent Taking medicine: independent Managing money: independent PHQ-9 Over the last 2 weeks, how often have you been bothered by any of the following problems? 22732 - PHQ-9 Billing: Patient declined-do not bill Source: Developed by Drs. Shashi Gomez, Dorie Beyer, Reyes Healy and colleagues, with an educational wali from [employer]. Physical Exam Vital Signs: Last Vital Signs Pulse 80 03/05/24 08:13 Resp 13 03/05/24 08:13 BP 124/72 03/05/24 08:13 Pulse Ox 99 03/05/24 08:13 Oxygen Delivery Method Room Air 03/05/24 08:13 BMI result Body Mass Index 24.9 Office Procedures Advance Care Planning Advance Care Planning discussion: Exists, not on file Date of discussion: 03/05/24 Forms completed: Health Care Proxy and MOLST Time spent: 1-15 minutes, not on file Actual minutes spent: 5 Vision Screening Right Eye: 20/20 Left Eye: 20/20 Bilateral: 20/20 Color: Pass Corrected: Pass (wearing glasses) 36301 - Vision Screening Results AMB Hemoglobin A1c AMB Hemoglobin A1c 5.2 % Last Edit by Polina Yanez MA on 03/05/24 09:12 Results Reviewed Results Reviewed: Laboratory Last Values Hgb A1c (Clinic) 5.2 % (4.0-6.0) 03/05/24 09:04 Assessment & Plan Assessment & Plan (1) Encounter for subsequent annual wellness visit (AWV) in Medicare patient: Code(s): Z00.00 - Encounter for general adult medical examination without abnormal findings (2) Hyperlipidemia: Comment: pt declined statins Code(s): E78.5 - Hyperlipidemia, unspecified Qualifiers: Hyperlipidemia type: mixed hyperlipidemia Qualified Code(s): E78.2 - Mixed hyperlipidemia (3) Fall: Code(s): W19.XXXA - Unspecified fall, initial encounter Qualifiers: Encounter type: initial encounter Qualified Code(s): W19.XXXA - Unspecified fall, initial encounter (4) Rib pain on right side: Code(s): R07.81 - Pleurodynia (5) Unsteady gait: Code(s): R26.81 - Unsteadiness on feet Plan . Orders: Orders AMB Hemoglobin A1c 03/05/24 Z13.9 - Encounter for screening, unspecified Lipid Panel 03/05/24 E78.5 - Hyperlipidemia, unspecified Quality Reporting (2019) Adult ([facility] 138/05/24/68) Smoking risk assessment performed?: Yes Patient Tobacco Use Status: Never used Tobacco Depression screening performed: Yes Systolic BP not done?: No Diastolic BP not done?: No BMI screening not done: No Sexual Activity Screening ([facility] 153) Sexually active?: No Immunizations ([facility] 147, 117) Annual Influenza Vaccine: Yes Measles Antibody Test: No Mumps Antibody Test: No Rubella Antibody Test: No Varicella Antibody Test: No Anti Hepatitis A IgG Antigen test: No Anti Hepatitis B Virus Surface Ab test: No Fall Risk Screening ([facility] 139) Last assessed Fall Risk: 03/05/24 Fall risk assessment: 1 Fall in past year Dementia Assessment ([facility] 149) Cognitive assessment recorded: Yes Assessment of cognition with standardized tool: Yes (6 cit 0/28) Depression/Bipolar (159/160/161/177) Suicide risk assessment performed: Yes Ophthalmol:Cataracts Visual Acuity (133) Visual acuity exam performed: Yes (see results) Coding Level of Care Code Medicare Subsequent (G0439) Est Pt Level 4 (95705) Diagnoses Encounter for subsequent annual wellness visit (AWV) in Medicare patient Z00.00 Mixed hyperlipidemia E78.2 Hyperlipidemia type: mixed hyperlipidemia Fall, initial encounter W19.XXXA Encounter type: initial encounter Rib pain on right side R07.81 Unsteady gait R26.81 CPT Codes Advance Care Planning - Time spent: 1-15 minutes, not on file ([id number]) Advance Care Planning - Time spent: 1-15 minutes, not on file ([id number]) Vision Screening - Vision Screenin - Vision Screening ([id number]) Advance Care Planning Advance Care Planning discussion: Exists, not on file Date of discussion: 03/06/24 Forms completed: Health Care Proxy, MOLST and Living will Time spent: 1-15 minutes, not on file Actual minutes spent: 5
[2024-03-05 08:13] VITALS: BP 124/72; PULSE 80; RESP 13; O2SAT 99; BMI 24.9
== END 2024-03-05 09:05 | disposition home or self-care (01) ==
PROVIDERS: PCP Nurse Practitioner Family; Visit Provider Nurse Practitioner Family
DX: Z00.00 Encounter for general adult medical examination without abnormal findings (principal); E78.2 Mixed hyperlipidemia; W19.XXXA Unspecified fall, initial encounter; R07.81 Pleurodynia; R26.81 Unsteadiness on feet

== ENCOUNTER → 2024-03-05 08:07 | Outpatient (BNVA) | payer MEDICARE, SELFPAY | PROVIDERS: PCP Nurse Practitioner Family; Visit Provider Nurse Practitioner Family | DX: Z00.00 Encounter for general adult medical examination without abnormal findings (principal); Z13.1 Encounter for screening for diabetes mellitus; E78.2 Mixed hyperlipidemia; R07.81 Pleurodynia; R26.81 Unsteadiness on feet; Z91.81 History of falling | CPT/HCPCS: 83036; 92552; 99212 ==

== ENCOUNTER 2024-03-11 07:57 | Outpatient (REF) | payer MEDICARE, SELFPAY ==
--- NOTE | ~2024-03-11 | XR_ITS ---
EXAMINATION: XR LEFT SHOULDER CLINICAL INFORMATION: Pain in left shoulder M25.512. Greater tuberosity fracture. COMPARISON: XR Left shoulder 03/04/2024 TECHNIQUE: AP internal and external views of the left shoulder. FINDINGS: Subtle nondisplaced fracture of the greater tuberosity appears similar to the previous study. No new abnormality. XR/XR shoulder LT min 2V IMPRESSION: Subtle nondisplaced fracture of the greater tuberosity appears similar to the previous study. Electronically signed by: Jose Colindres MD 04/17/2024 02:43 PM L[facility]
--- OUTSIDE RECORDS SUMMARY | 2024-03-12 18:41 | XMS_ITS | Patient Health Record ---
Author Organization [facility] Address [address] [place] [address] Care Team Providers Care Urologist Md Name Role Phone Nickie Finn MD Primary Care Provider Sabaa Shashi Young Unavailable [phone] REASON FOR REFERRAL No Information MEDICATIONS Medication [...] malignant neoplasm of colon (Z12.11) Active confirmed 602322000 Problem Encounter for screening for malignant neoplasm of rectum (Z12.12) Active confirmed Screening for malignant neoplasm of rectum (065690770) Problem History of adenomatous polyp of colon (Z86.010) Active confirmed 952099063 Problem Preprocedural examination (Z01.818) Active confirmed 04633077 Problem Change in bowel habits (R19.4) Active confirmed 408079500 Problem Diarrhea, unspecified type (R19.7) Active confirmed 40390873 Problem Diarrhea of infectious origin (A09) Active confirmed 12009287 Problem Diverticulosis of large intestine without perforation or abscess without bleeding (K57.30) Active confirmed Diverticul ar disease of colon (184532901) PLAN OF TREATMENT Pending Test Test Name [...] Date MEDICARE OF [place] [address] [facility] [place] [address] [id number] FRANNY FRANCISCO Self - patient is the insured MEDEX ATTN CLAIMS [address] [place] [address] [phone] [id number] FRANNY FRANCISCO Self - patient is the insured MEDICAL (GENERAL) HISTORY Medical History History ICD Code Tubular adenomas removed in 2006--neg colonoscopy in 2009 except for diverticulosis and internal hemorrhoids ADD/Anxiety Denies [place],DM,CVA,Lung disease,renal dise ase Neg. colonoscopy in 11/2015 [...]
== END 2024-03-11 07:58 | disposition home or self-care (01) ==
LOC: HO.HOSX 07:57
DX: M25.512 Pain in left shoulder (principal); S42.252D Displaced fracture of greater tuberosity of left humerus, subsequent encounter for fracture with routine healing
CPT/HCPCS: 73030; 99202

== ENCOUNTER 2024-03-11 08:21 | Outpatient (AMB) | payer OTHER, MEDICARE, SELFPAY ==
--- NOTE | 2024-03-11 08:27 | MHC.OFFVIS ---
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 Patient was seen at [facility] in [place], [place] on 03/04/2024 for a fall she sustained at work. Pt states she was playing soccer at work and fell on the wooden floor after losing her balance. Pt states she has discomfort and is taking 600mg Ibuprofen 3-4 times a day. Pt states she has pain in her shoulder and her rib cage. 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 The next day, patient was evaluated in the walk-in clinic, where x-rays revealed a very minimally displaced fracture of the greater tuberosity of the left humerus. Today, the patient reports that she is still experiencing discomfort in the left shoulder, in his taking ibuprofen for this with relief. Patient states she has been moving the shoulder as much as possible to prevent stiffness. Denies any numbness or tingling in the left upper extremity. No other acute complaints or concerns at this time. [facility] Medical History Shingles ADD (attention deficit disorder) Incontinence Arthritis Heart murmur High cholesterol Anxiety Cataract Annual physical exam Parasite infection Wrist fracture, left Anemia Normal Pap smear Lumbar degenerative disc disease Mitral regurgitation Hyperlipidemia Depression Osteoporosis History of mammogram Surgical History Hx of appendectomy History of tonsillectomy History of laparoscopic appendectomy H/O colonoscopy Family History Father History of heart surgery High cholesterol Cardiovascular disease Mother Cardiovascular disease Mental health disorder Maternal Grandfather Diabetes mellitus Cancer Maternal Grandmother Cancer Paternal Grandmother Cancer Sister Asthma Paternal Grandfather Cardiovascular disease Cancer Social History Housing: House Alcohol intake: current Alcohol intake frequency: a few times a month Patient Tobacco Use Status: Never used Tobacco e-Cigarette/Vaping Use: Never Used Advance Directives Date on File: 09/15/20 Current occupational status: retired Current occupation: rt handed Cognitive needs: No Hearing needs: No Vision needs: Yes Review of Systems Const All systems reviewed & are unremarkable except as noted in HPI and below Physical Exam Extrem Other: On inspection, there is no visible deformity of the patient's left shoulder No erythema, edema, ecchymosis noted No lacerations, abrasions, open areas No evidence of infection Reports some very mild tenderness to palpation about the posterior aspect of the shoulder No tenderness palpation of the greater tuberosity of the humerus Range of motion of the elbow, wrist, hand full and intact Distal sensation intact Capillary refill brisk Office Procedures AMB Fracture Care Details: Greater tuberosity fracture of the left humerus Fracture Billing Code: Fracture Billing Code Quality Reporting (2019) Adult ([facility] /05/[birth year]/68) Smoking risk assessment performed?: Yes Patient Tobacco Use Status: Never used Tobacco Results Reviewed Results Reviewed: X-rays obtained in the office today and independently reviewed by me, Eric Avendano PA-C, demonstrate very minimally displaced fracture of the greater tuberosity of the left proximal humerus. Assessment & Plan Assessment & Plan (1) Greater tuberosity of humerus fracture: Code(s): S42.253A - Displaced fracture of greater tuberosity of unspecified humerus, initial encounter for closed fracture Category: Medical Plan 1. Greater tuberosity fracture of left humerus Date of injury 03/03/2024 Patient is educated about this injury and the typical recovery course At this time, patient is educated that she should avoid any active motion of the shoulder away from the body, including adduction, external rotation, and forward flexion Patient is referred to PT for gentle passive ROM and pendulums for L shoulder Patient is advised that she can wear the sling for comfort, but does not have to Patient is amenable to this plan Patient will f/u in 4-5 weeks with repeat X rays, sooner with any acute concerns Orders: Orders PT Evaluation and Treatment Today S42.253A - Displaced fracture of greater tuberosity of unspecified humerus, initial encounter for closed fracture XR shoulder LT min 2V Today M25.512 - Pain in left shoulder Coding Level of Care Code New Pt Level 3 (16401) Diagnoses Greater tuberosity of humerus fracture S42.253A CPT Codes Fracture Care - Fracture Billing Code: Fracture Billing Code ([id number])
== END 2024-03-11 08:50 | disposition home or self-care (01) ==
PROVIDERS: PCP Nurse Practitioner Family
DX: S42.252A Displaced fracture of greater tuberosity of left humerus, initial encounter for closed fracture (principal)
CPT/HCPCS: 99203

== ENCOUNTER 2024-03-14 09:13 | Outpatient (AMB) | payer MEDICARE, SELFPAY ==
[2024-03-14] VITALS (7 sets, daily range): BP systolic 98–135; BP diastolic 44–78; PULSE 76; RESP 14; O2SAT 98; BMI 24.2
--- OUTSIDE RECORDS SUMMARY | 2024-03-14 09:16 | XMS_ITS | Patient Health Record ---
Author Organization [facility] Address [address] [place] [address] Care Team Providers Care Paste Mixer Name Role Phone Nickie Finn MD Primary Care Provider Sabaa Shashi Young Unavailable [phone] REASON FOR REFERRAL No Information MEDICATIONS Medication [...] malignant neoplasm of colon (Z12.11) Active confirmed 195193440 Problem Encounter for screening for malignant neoplasm of rectum (Z12.12) Active confirmed Screening for malignant neoplasm of rectum (645940532) Problem History of adenomatous polyp of colon (Z86.010) Active confirmed 198199170 Problem Preprocedural examination (Z01.818) Active confirmed 35222571 Problem Change in bowel habits (R19.4) Active confirmed 257249124 Problem Diarrhea, unspecified type (R19.7) Active confirmed 69889117 Problem Diarrhea of infectious origin (A09) Active confirmed 41336988 Problem Diverticulosis of large intestine without perforation or abscess without bleeding (K57.30) Active confirmed Diverticul ar disease of colon (382645593) PLAN OF TREATMENT Pending Test Test Name [...] Date MEDICARE OF [place] [address] [facility] [place] [address] [phone] [id number] FRANNY FRANCISCO Self - patient is the insured MEDEX ATTN CLAIMS [address] [place] [address] [id number] FRANNY FRANCISCO Self - patient is the insured MEDICAL (GENERAL) HISTORY Medical History History ICD Code Tubular adenomas removed in 2006--neg colonoscopy in 2009 except for diverticulosis and internal hemorrhoids ADD/Anxiety Denies [place],DM,CVA,Lung disease,renal dise ase Neg. colonoscopy in 11/2015 [...]
--- NOTE | 2024-03-14 09:18 | MHC.OFFWIV ---
Intake Vital Signs 03/14/24 09:23 03/14/24 10:00 03/14/24 10:02 03/14/24 10:04 03/14/24 10:05 03/14/24 10:09 03/14/24 10:10 Height 5 ft 6 in Weight 150 lb BMI 24.2 BP 135/74 118/60 98/44 L 127/72 112/64 130/76 122/78 Blood Pressure Location Rt brachial Rt brachial Rt brachial Rt brachial Rt brachial Rt brachial Rt brachial Position Sitting Sitting Standing Supine Sitting Sitting Sitting Respiration 14 Pulse 76 Pulse Source Pulse Oximeter Pulse Oximetry (%) 98 Oxygen Delivery Method Room Air Intake Visit Reasons: Dizziness Intake Note: Patient complaining of dizziness x 5 days . Patient also had a bad fall 10 days ago. Patient Tobacco Use Status: Never used Tobacco Mix Technician Required: No Allergies No Known Drug Allergies Allergy (Unknown, Verified 03/14/24 09:52) UNKNOWN Medication List - Last Reconciled 03/14/24 by Karma Ornelas, LOCOMOTIVE ENGINEER-BC alendronate 70 mg PO QWEEK clobetasol 0.05% 1 appl topical BID diclofenac sodium 1% 2 grams topical QID PRN escitalopram oxalate 15 mg orally; 90 days nystatin 1 appl topical TID PRN Do you need a note to return to daycare/school/sports/work: No HPI HPI Comments History of Present Illness Details 68 y/o F with LUÍS, MDD, ADHD, HLD, VIt D def, Mitral Regurg, urinary incont, cataracts, anemia, lumbar DJD, lichen sclerosis , osteoporosis, elevated intact PTH s/p appendectomy, oopherectomy Health Maintenance: Tdap 2016 Mammo 10/11/23 Colon 08/2020 Dr Whaley, 5 year repeat (2025) DEXA 05/2023 Echo 01/2023 EF 62% The left atrium is mildly dilated, tace mitral valve regurgitation, mild tricuspid valve regurgitation, no significant change compared to prior study dated: 11/24/2016. Specialists: Pysch & counselor Derm History of Present Illness The patient is a 68-year-old female presenting with dizziness. She reports an exacerbation of dizziness approximately 5 days ago, with antecedent unsteadiness following a fall 10 to 12 days prior. The patient observes dizziness when transitioning from lying to sitting or standing, with episodes lasting a few seconds. These symptoms have been partly managed with increased salt intake, a strategy that previously alleviated similar symptoms. Currently, the dizziness seems persistent despite adequate hydration and salt tablets, with a reported episode even while seated. The patient is experiencing a resurgence of orthostatic hypotension, evidenced by marked blood pressure variations upon positional changes measured during this visit. Very short lived. Additionally, the patient mentions soreness in her middle chest region since the fall but notes improvement over time. The patient?s left arm is immobilized based on orthopedic advice following the fall, and there is a concern about proper rehabilitation coordination due to missed communications with a physical therapist. The patient denies taking any new medications except regularly administrating 600 mg of Ibuprofen three times daily, which commenced post-fall. She acknowledges occasional nocturnal insomnia due to stress from upcoming performances and responsibilities. Physical Exam - Vital Signs- Blood pressure supine 124/72 mmHg, sitting 118/60 mmHg, standing 112/64 mmHg, and 98/44 mmHg - Cardiovascular- No abnormalities in auscultation - Neurological- Episodes of dizziness upon positional changes noted; patient is orthostatically unstable - ENT- Clear tympanic membranes with no apparent fluid or obstruction - General- Non-distressed but visibly fatigued Plan - Continue monitoring orthostatic blood pressure changes. Review and adjust salt intake as necessary while maintaining appropriate hydration with added electrolytes. - Discontinue Ibuprofen due to potential contribution to orthostatic symptoms and gastrointestinal adverse effects; transition to Acetaminophen for pain management, ensuring dosage does not exceed 3000 mg/day. - Check complete blood count CBC) and comprehensive metabolic panel CMP) for any complications related to Ibuprofen use, including hemoglobin, hematocrit, and renal and liver function tests. - Advise slow positional changes to mitigate dizziness risk. Emphasize safety precautions to prevent falls and recommend continuing left arm immobilization. - Encourage patient to take Ibuprofen with food if continued, and explore the potential for gastrointestinal safety in long-term nonsteroidal anti-inflammatory drug NSAID) use. - Continue follow-up with orthopedics and initiate physical therapy as coordinated for arm rehabilitation.. - Discuss and implement balance and safety strategies to prevent further falls or injuries. Results Labs from today show WBC of 4.1 otherwise normal CBC, normal electrolytes, BUN 17, AST 34 otherwise normal CMP labs do show she needs more hydration, otherwise look fine. One of her liver enzymes was mildly elevated... does she drink alcohol? If so, recommend stopping. Nothing here to explain the symptoms she is complaining of. Have her continue to monitor her symptoms. Patient was informed and verbally consented to the use of an ambient scribe for clinic note documentation during this visit. This note is constructed using voice recognition software. While every effort has been made to ensure accuracy in finnish rubber, still errors may have been included Sometimes, these errors may affect the content or meaning of the given sentence . Total time spent caring for the patient today was 60 minutes. This includes time spent before the visit reviewing the chart, time spent during the visit, and time spent after the visit on documentation [facility] Medical History Shingles ADD (attention deficit disorder) Incontinence Arthritis Heart murmur High cholesterol Anxiety Cataract Annual physical exam Parasite infection Wrist fracture, left Anemia Normal Pap smear Lumbar degenerative disc disease Mitral regurgitation Hyperlipidemia Depression Osteoporosis History of mammogram Surgical History Hx of appendectomy History of tonsillectomy History of laparoscopic appendectomy H/O colonoscopy Family History Father History of heart surgery High cholesterol Cardiovascular disease Mother Cardiovascular disease Mental health disorder Maternal Grandfather Diabetes mellitus Cancer Maternal Grandmother Cancer Paternal Grandmother Cancer Sister Asthma Paternal Grandfather Cardiovascular disease Cancer Social History Housing: House Alcohol intake: current Alcohol intake frequency: a few times a month Patient Tobacco Use Status: Never used Tobacco e-Cigarette/Vaping Use: Never Used Advance Directives Date on File: 09/15/20 Current occupational status: retired Current occupation: rt handed Cognitive needs: No Hearing needs: No Vision needs: Yes Review of Systems Const Details: Denies chills, Denies fatigue, Denies fever(s), Denies headache(s) and Denies weakness Cardiac Denies chest pain, Denies claudication, Denies leg edema, Denies lightheadedness, Denies palpitations, Denies dyspnea, Denies dyspnea on exertion, Denies orthopnea and Denies other (Loss of consciousness) Resp Denies cough, Denies excessive phlegm production, Denies dyspnea, Denies dyspnea on exertion, Denies snoring and Denies wheezing Physical Exam Vital Signs: Last Vital Signs Pulse 76 03/14/24 09:23 Resp 14 03/14/24 09:23 BP 122/78 03/14/24 10:10 Pulse Ox 98 03/14/24 09:23 Oxygen Delivery Method Room Air 03/14/24 09:23 BMI result Body Mass Index 24.2 Const Other: General: comfortable and no acute distress Orientation/consciousness: patient oriented x3 Chest Chest palpation & inspection: normal inspection of the chest Resp Auscultation: clear to auscultation bilaterally Cardiac Palpation: normal PMI Heart sounds: S1 normal heart sound present, S2 normal heart sound present, no gallops, no murmur, no rubs Assessment & Plan Assessment & Plan (1) Orthostasis: Code(s): I95.1 - Orthostatic hypotension Plan . Orders: Orders Comprehensive Met. Panel Today I95.1 - Orthostatic hypotension Complete Blood Count no Diff Today I95.1 - Orthostatic hypotension Coding Level of Care Code Est Pt Level 5 (34912) Diagnoses Orthostasis I95.1
== END 2024-03-14 10:22 | disposition home or self-care (01) ==
PROVIDERS: PCP Nurse Practitioner Family; Visit Provider Nurse Practitioner Family
DX: I95.1 Orthostatic hypotension (principal)

== ENCOUNTER → 2024-03-14 09:13 | Outpatient (BNVA) | payer OTHER, MEDICARE, SELFPAY | PROVIDERS: PCP Nurse Practitioner Family | DX: I95.1 Orthostatic hypotension (principal) | CPT/HCPCS: 99212 ==

== ENCOUNTER 2024-03-14 10:32 | Outpatient (REF) | payer MEDICARE, SELFPAY ==
[2024-03-14 14:21] LABS: Hematocrit 39.3 % (37.0-47.0); Hemoglobin 12.6 g/dl (12.0-16.0); Mean Corpuscular HGB Conc 32.1 g/dl (31.0-35.0); Mean Corpuscular Hemoglobin 28.4 pg (27.0-33.0); Mean Corpuscular Volume 88.5 fL (80.0-98.0); Mean Platelet Volume 12.2 fL (9.4-12.3); Platelet Count 201 X10*3/uL (160-400); Red Blood Count 4.44 X10*6/uL (4.20-5.50); Red Cell Distribution Width 14.5 % (11.0-16.0); White Blood Count 4.1 X10*3/uL (4.8-10.8)
[2024-03-14 14:33] LABS: Alanine Aminotransferase 29 U/L (0-31); Albumin Level 3.9 g/dL (3.5-5.0); Alkaline Phosphatase 85 U/L (39-117); Anion Gap 9 (12-20); Aspartate Amino Transferase 34 U/L (5-31); Bilirubin Total 0.5 mg/dL (0.0-1.0); Blood Urea Nitrogen 17 mg/dL (9-16); Calcium 9.8 mg/dL (8.4-10.2); Carbon Dioxide 27 mmol/L (22-29); Chloride 109 mmol/L (96-108); Cholesterol 210 mg/dL (<200); Estimated Glomerular Filt Rate > 60; Glucose Random 83 mg/dL (60-115); HDL Cholesterol 63 mg/dL (>40); LDL Cholesterol Calculated 133 mg/dL (<100); Potassium 4.2 mmol/L (3.3-5.1); Sodium 141 mmol/L (135-145); Triglycerides 72 mg/dL (<150)
== END 2024-03-14 10:33 | disposition home or self-care (01) ==
LOC: HO.WFDLDS 10:32
PROVIDERS: Visit Provider Nurse Practitioner Family
DX: E78.5 Hyperlipidemia, unspecified (principal); I95.1 Orthostatic hypotension
CPT/HCPCS: 36415; 80053; 80061; 85027

== ENCOUNTER → 2024-03-18 13:02 | Outpatient (REF) | payer MEDICARE, SELFPAY ==
--- OUTSIDE RECORDS SUMMARY | 2024-03-18 13:05 | XMS_ITS | Continuity of Care Document ---
Author Organization [facility] [employer] [facility] Address [address] [place] [address]- Care Team Providers Care Senior Actuarial Analyst Name Role Phone Nickie Finn MD Primary Care Physician [facility] [id number] Date(s): 02/13/24 - 03/14/24 [facility] [employer] [address] [place] [address]- Attending Physician: Khoi Pozo Admitting Physician: Khoi Pozo Referring Physician: Khoi Pozo Encounter Type: Triage Allergies, Adverse Reactions, Alerts No Known Allergies [...] - Primary Care Member Role: PCP Address: [address] [place] [address] Telecom: Care Team Related Persons Name: LESLIE TOPETE Name: RAMU LINN Insurance Providers Guarantor name: [employer] Health Plan Information #: 1 Payer: MEDICARE PART B OUTPT Member Number: NA Policy Number: NA Group Number: NA Health Plan Information #: 2 Payer: MEDEX Member Number: NA Policy Number: NA Group Number: NA
--- OUTSIDE RECORDS SUMMARY | 2024-03-18 13:05 | XMS_ITS | Patient Health Record ---
Author Organization [facility] Address [address] [place] [address] Care Team Providers Care Condenser Setter Name Role Phone Nickie Finn MD Primary Care Provider Sabaa Shashi Young Unavailable [phone] REASON FOR REFERRAL No Information MEDICATIONS Medication [...] malignant neoplasm of colon (Z12.11) Active confirmed [id number] Problem Encounter for screening for malignant neoplasm of rectum (Z12.12) Active confirmed Screening for malignant neoplasm of rectum (432576377) Problem History of adenomatous polyp of colon (Z86.010) Active confirmed 037224358 Problem Preprocedural examination (Z01.818) Active confirmed 20868179 Problem Change in bowel habits (R19.4) Active confirmed 003043323 Problem Diarrhea, unspecified type (R19.7) Active confirmed 43159682 Problem Diarrhea of infectious origin (A09) Active confirmed 64451635 Problem Diverticulosis of large intestine without perforation or abscess without bleeding (K57.30) Active confirmed Diverticul ar disease of colon (469527260) PLAN OF TREATMENT Pending Test Test Name [...] Date MEDICARE OF [place] [address] [facility] [place] [address] [id number] FRANNY FRANCISCO Self - patient is the insured MED[employer] ATTN CLAIMS [address] [place] [address] [id number] FRANNY FRANCISCO Self - patient is the insured MEDICAL (GENERAL) HISTORY Medical History History ICD Code Tubular adenomas removed in 2006--neg colonoscopy in 2009 except for diverticulosis and internal hemorrhoids ADD/Anxiety Denies MT,DM,CVA,Lung disease,renal dise ase Neg. colonoscopy in 11/2015 [...]
== END ==
LOC: HO.SL 13:02
PROVIDERS: PCP Nurse Practitioner Family; Visit Provider Nurse Practitioner Family
DX: G47.10 Hypersomnia, unspecified (principal)
CPT/HCPCS: 95806

== ENCOUNTER → 2024-03-19 13:14 | Outpatient (BNV) | payer MEDICARE, SELFPAY | PROVIDERS: PCP Nurse Practitioner Family; Visit Provider Internal Medicine | DX: G47.33 Obstructive sleep apnea (adult) (pediatric) (principal) | CPT/HCPCS: 95806 ==

== ENCOUNTER 2024-03-21 09:37 | Outpatient (AMB) | payer MEDICARE, SELFPAY ==
--- OUTSIDE RECORDS SUMMARY | 2024-03-21 09:39 | XMS_ITS | Patient Health Record ---
Author Organization [facility] Address [address] [place] [address] Care Team Providers Care Abstract Clerk Name Role Phone Nickie Finn MD Primary Care Provider Sabaa Shashi Young Unavailable [phone] REASON FOR REFERRAL No Information MEDICATIONS Medication [...] malignant neoplasm of colon (Z12.11) Active confirmed 050044567 Problem Encounter for screening for malignant neoplasm of rectum (Z12.12) Active confirmed Screening for malignant neoplasm of rectum (837926118) Problem History of adenomatous polyp of colon (Z86.010) Active confirmed 184733784 Problem Preprocedural examination (Z01.818) Active confirmed 22435770 Problem Change in bowel habits (R19.4) Active confirmed 737335638 Problem Diarrhea, unspecified type (R19.7) Active confirmed 37832053 Problem Diarrhea of infectious origin (A09) Active confirmed 68527662 Problem Diverticulosis of large intestine without perforation or abscess without bleeding (K57.30) Active confirmed Diverticul ar disease of colon (125090609) PLAN OF TREATMENT Pending Test Test Name [...] Date MEDICARE OF [place] [address] [place] [address] [id number] FRANNY FRANCISCO Self - patient is the insured MED[employer] ATTN CLAIMS [address] [place] [address] [phone] [id number] FRANNY FRANCISCO Self - patient is the [...]
--- NOTE | 2024-03-21 09:40 | A.OFFPSYCH_ITS ---
Intake Intake Visit Reasons: depression Follow Up Clerk Required: No Allergies No Known Drug Allergies Allergy (Unknown, Verified 03/14/24 09:52) UNKNOWN Medication List - Last Reconciled 03/21/24 by Gayle Gonzalez APRN alendronate 70 mg PO QWEEK clobetasol 0.05% 1 appl topical BID diclofenac sodium 1% 2 grams topical QID PRN escitalopram oxalate 15 mg orally; 90 days nystatin 1 appl topical TID PRN HPI- Psychiatric Chief Complaint: depression HPI Narrative: pt reports continued depression with increased sadness especially when alone. she is taking lexapro 15 mg daily. she has a fractured left shoulder. she fell suddenly 2 weeks ago with no warning- no dizziness and no time to catch the fall. she did not hit her head. she has seen her PCP who is doing a workup. she did not go to ED at the time of fall. she is starting PT. MOCA score today is 29.5/30. she reports she is working PT, attending uatsdin, and spending time with friends. she reports depressed mood, loss of interest and pleasure, feeling down, difficulty getting out bed in am, low motivation. She also reports frequent worry about a wide range of things and cant stop. PHQ9= 8 and GAD7 = 3 Past Psychiatric History: no IPLOC, no PHP or IOP; outpatient therapy with Leslie FARRIS in [place] for years; long history of anxiety and dysthymia, recent dx of ADHD Subjective Subjective Subjective Medication Compliance: Yes Side effects from medications: No Review of Systems Medical Review of Systems: unchanged Review of Systems Constitutional: Reports difficulty sleeping, Reports fatigue, Reports lethargy and Reports malaise Eyes: Reports no additional complaints Reports no additional complaints Cardiovascular: Reports no additional complaints Respiratory: Reports no additional complaints Gastrointestinal: Reports no additional complaints Genitourinary: Reports urinary incontinence Musculoskeletal: Reports other (fracture left shoulder ) Reports no additional complaints Psychiatric: Reports depression, Reports difficulty concentrating and Reports anhedonia Endocrine: Reports no additional complaints and Reports fatigue Hematologic/Lymphatic: Reports no additional complaints Allergic/Immunologic: Reports no additional complaints Mental Status Exam Mental Status Exam Patient Appearance: Well Grooomed and Appropriate Patient Orientation: Person, Place, Time and Situation Level of Consciousness: Awake and Alert Patient Behavior: Appropriate, Cooperative, Good Eye Contact and Crying (tearful) Mood Description: Sad Affect Description: Sad Patient Cognition Impaired: No Ability to Follow Directions: Good Speech Pattern: Clear and Appropriate Memory Description: Intact Hallucinations: None Delusions: Not Present Thought Process: Intact Thought Content: positive for Intact and positive for Goal Oriented Judgement: Good Assessment and Plan Assessment & Plan (1) Major depressive disorder, recurrent episode with anxious distress: Status: Acute Code(s): F33.9 - Major depressive disorder, recurrent, unspecified (2) Anxiety: Status: Acute Code(s): F41.9 - Anxiety disorder, unspecified Plan continue lexapro 15 mg daily stay hydrated ekg due to fall and potential lexapro side effects QTC refer for ketamine consult with [facility] Medications: Refilled escitalopram oxalate 15 mg orally; 135 tabs 1RF 90 days Orders: Orders ECG 12 lead EKG Today I34.0 - Nonrheumatic mitral (valve) insufficiency, W19.XXXA - Unspecified fall, initial encounter Counseling and coordination of Care Pt. Self Management counseling: Med illness tx adherence, Mod caffeine/ETOH intake, Nutrition education and improvement, Sleep hygiene, General coping skills and Problem solving Medication management counseling: Effectiveness, Side effects, Dosing range, Duration, Drug interaction and Adherence Diagnosis and Prognosis Counseling: Accuracy of diagnosis, Prognosis over time, Impact of diagnosis on life functions, Impact of family relationship, Problematic behaviors secondary to diagnosis and Adequacy of current interventions Details: I spent 45 minutes reviewing the record, seeing the patient and documenting in the medical record. Counseling provided to the patient/caregiver as outlined below. Addressed patient/caregiver concerns regarding current medication regime including effect norberto adherence. Addressed patient/caregiver concerns regarding diagnosis and prognosis including accuracy of diagnosis, prognosis over time, impact of diagnosis. Addressed patient/caregiver concerns regarding impact of recent stressors. [facility] Medical History Shingles ADD (attention deficit disorder) Incontinence Arthritis Heart murmur High cholesterol Anxiety Cataract Annual physical exam Parasite infection Wrist fracture, left Anemia Normal Pap smear Lumbar degenerative disc disease Mitral regurgitation Hyperlipidemia Depression Osteoporosis History of mammogram Surgical History Hx of appendectomy History of tonsillectomy History of laparoscopic appendectomy H/O colonoscopy Family History Father History of heart surgery High cholesterol Cardiovascular disease Mother Cardiovascular disease Mental health disorder Maternal Grandfather Diabetes mellitus Cancer Maternal Grandmother Cancer Paternal Grandmother Cancer Sister Asthma Paternal Grandfather Cardiovascular disease Cancer Social History Housing: House Alcohol intake: current Alcohol intake frequency: a few times a month Patient Tobacco Use Status: Never used Tobacco e-Cigarette/Vaping Use: Never Used Advance Directives Date on File: 09/15/20 Current occupational status: retired Current occupation: rt handed Cognitive needs: No Hearing needs: No Vision needs: Yes Social History: lives alone, dating, 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
== END 2024-03-21 10:34 | disposition home or self-care (01) ==
LOC: HO.HOP 09:37
PROVIDERS: PCP Nurse Practitioner Family; Visit Provider Clinical Nurse Specialist Psychiatric/Mental Health
DX: F33.9 Major depressive disorder, recurrent, unspecified (principal); F41.9 Anxiety disorder, unspecified
CPT/HCPCS: 99215

== ENCOUNTER → 2024-03-21 09:37 | Outpatient (REF) | payer MEDICARE, SELFPAY ==
--- NOTE | 2024-03-21 10:43 | ECG_ITS ---
Test Reason : NR MV INSSUFF Blood Pressure : / mmHG Vent. Rate : 060 BPM Atrial Rate : 060 BPM P-R Int : 184 ms QRS Dur : 096 ms QT Int : 436 ms P-R-T Axes : 075 028 062 degrees QTc Int : 436 ms Normal sinus rhythm Normal ECG When compared with ECG of 17-AUG-2023 11:18, No significant change was found Referred By: Gayle Gonzalez Electronically Signed By:LORY NUNES
== END ==
LOC: HO.CARD 09:37
PROVIDERS: PCP Nurse Practitioner Family; Visit Provider Clinical Nurse Specialist Psychiatric/Mental Health
DX: I34.0 Nonrheumatic mitral (valve) insufficiency (principal)
CPT/HCPCS: 93005

== ENCOUNTER → 2024-03-21 10:43 | Outpatient (BNV) | payer MEDICARE, SELFPAY | PROVIDERS: PCP Nurse Practitioner Family; Visit Provider Internal Medicine | DX: I34.0 Nonrheumatic mitral (valve) insufficiency (principal) | CPT/HCPCS: 93010 ==

== ENCOUNTER 2024-04-11 15:52 | Outpatient (AMB) | payer MEDICARE, SELFPAY ==
--- OUTSIDE RECORDS SUMMARY | 2024-04-11 15:54 | XMS_ITS | Patient Health Record ---
Author Organization [facility] Address [address] [place] [address] Care Team Providers Care Biscuitware Brusher Name Role Phone Nickie Finn MD Primary Care Provider Sabaa Shashi Young Unavailable [phone] REASON FOR REFERRAL No Information MEDICATIONS Medication [...] malignant neoplasm of colon (Z12.11) Active confirmed [id number] Problem Encounter for screening for malignant neoplasm of rectum (Z12.12) Active confirmed Screening for malignant neoplasm of rectum (680207756) Problem History of adenomatous polyp of colon (Z86.010) Active confirmed 061087030 Problem Preprocedural examination (Z01.818) Active confirmed 41585330 Problem Change in bowel habits (R19.4) Active confirmed 566915197 Problem Diarrhea, unspecified type (R19.7) Active confirmed 07231060 Problem Diarrhea of infectious origin (A09) Active confirmed 57492285 Problem Diverticulosis of large intestine without perforation or abscess without bleeding (K57.30) Active confirmed Diverticul ar disease of colon (142006390) PLAN OF TREATMENT Pending Test Test Name [...] Date MED[place]ARE OF [place] [address] [place] [address] [id number] FRANNY FRANCISCO Self - patient is the insured [employer] ATTN CLAIMS [address] [place] [address] [id number] FRANNY FRANCISCO Self - patient is the insured MEDICAL (GENERAL) HISTORY Medical History History ICD Code Tubular adenomas removed in 2006--neg colonoscopy in 2009 except for diverticulosis and internal hemorrhoids ADD/Anxiety Denies MS,DM,CVA,Lung disease,renal dise ase Neg. colonoscopy in 11/2015 [...]
--- NOTE | 2024-04-11 17:19 | MHC.PC.OV ---
Intake Visit Reasons: (the sooner the better) fu sleep study results Allergies No Known Drug Allergies Allergy (Unknown, Verified 03/14/24 09:52) UNKNOWN Medication List - Last Reconciled 04/11/24 by PRABHAKAR MonteroP- alendronate 70 mg PO QWEEK clobetasol 0.05% 1 appl topical BID diclofenac sodium 1% 2 grams topical QID PRN escitalopram oxalate 15 mg orally; 90 days nystatin 1 appl topical TID PRN Tobacco use date assessed: 04/11/24 Fall risk assessment: 2 + Falls in past year Last assessed Fall Risk: 04/11/24 Dental Screening Dental Screen Date: 04/11/24 Did you have a dental visit in the last 12 months?: Yes Did you have a dental problem in the last 6 months where you did not have access to dental care?: No Was dental information given to patient?: Patient has dentist HPI HPI Comments History of Present Illness Details Telehealth appointment today to follow up on sleep study results. Sleep study results from 04/07/2024 reviewed with her in detail today. She is willing and agreeable to start CPAP therapy. She was made aware of the requirements and commitment to the CPAP therapy along with the monitoring. The plan will be to send the CPAP ordering supplies to [facility]. Information provided to the patient to follow up should she not hear from them. She is aware that we will need to repeat the sleep study to monitor for nocturnal hypoxemia improvement after the start of CPAP therapy. All questions answered. This note is constructed using voice recognition software. While every effort has been made to ensure accuracy in public works commissioner, still errors may have been included Sometimes, these errors may affect the content or meaning of the given sentence . Total time spent caring for the patient today was 20 minutes. This includes time spent before the visit reviewing the chart, time spent during the visit, and time spent after the visit on documentation PFSH Medical History Shingles ADD (attention deficit disorder) Incontinence Arthritis Heart murmur High cholesterol Anxiety Cataract Annual physical exam Parasite infection Wrist fracture, left Anemia Normal Pap smear Lumbar degenerative disc disease Mitral regurgitation Hyperlipidemia Depression Osteoporosis History of mammogram Surgical History Hx of appendectomy History of tonsillectomy History of laparoscopic appendectomy H/O colonoscopy Family History Father History of heart surgery High cholesterol Cardiovascular disease Mother Cardiovascular disease Mental health disorder Maternal Grandfather Diabetes mellitus Cancer Maternal Grandmother Cancer Paternal Grandmother Cancer Sister Asthma Paternal Grandfather Cardiovascular disease Cancer Social History Housing: House Alcohol intake: current Alcohol intake frequency: a few times a month Patient Tobacco Use Status: Never used Tobacco e-Cigarette/Vaping Use: Never Used Advance Directives Date on File: 09/15/20 Current occupational status: retired Current occupation: rt handed Cognitive needs: No Hearing needs: No Vision needs: Yes Questionnaire Thrive Questionnaire Date Thrive assessed: 01/16/24 LUÍS-7 AMB Questionnaire LUÍS-7 Date LUÍS - 7 assessed: 01/23/24 Source: Developed by Drs. Shashi Gomez, Dorie Beyer, Reyes Healy and colleagues, with an educational wali from 5to1. Physical exam (Primary Care) Tobacco/Smoking Status: Tobacco use Status Tobacco use date assessed 12/26/23 04/11/24 10:36 Patient Tobacco Use Status Never used Tobacco 04/11/24 10:36 e-Cigarette/Vaping Use Never Used 04/11/24 10:36 Thrive Assessment: Date of Thrive Assessment Date Thrive assessed 01/16/24 04/11/24 10:36 Telehealth Telehealth Telehealth Platform: [facility] Location of provider rendering services: practice address Location of patient: address on file Patient Identification confirmed using: Name, : Yes Telehealth method: voice only Patient verbally consented to treatment: Yes Patient verbally consented to billing insurance company: Yes Patient informed of any privacy concerns related to visit: Yes Minutes spent on Phone/Video with Pt.: 15 Coding Level of Care Code Tele Est Pt Level 3 (91643) Complex EM visit Add On G2211 Diagnoses Severe obstructive sleep apnea-hypopnea syndrome G47.33 Assessment & Plan Assessment & Plan (1) Severe obstructive sleep apnea-hypopnea syndrome: Comment: sleep study 04/2024 Code(s): G47.33 - Obstructive sleep apnea (adult) (pediatric) Category: Medical Plan .
== END 2024-04-11 17:05 | disposition home or self-care (01) ==
PROVIDERS: PCP Nurse Practitioner Family; Visit Provider Nurse Practitioner Family
DX: G47.33 Obstructive sleep apnea (adult) (pediatric) (principal)

== ENCOUNTER → 2024-04-11 15:52 | Outpatient (BNVA) | payer OTHER, MEDICARE, SELFPAY | PROVIDERS: PCP Nurse Practitioner Family; Visit Provider Nurse Practitioner Family ==

== ENCOUNTER 2024-04-15 08:17 | Outpatient (REF) | payer OTHER, MEDICARE, SELFPAY ==
--- NOTE | ~2024-04-15 | XR_ITS ---
CLINICAL HISTORY: M25.511 - Pain in left shoulder 3 view left shoulder Comparison: None Findings: No fractures or dislocations. Minimal calcific tendinitis of the rotator cuff. Mild acromioclavicular osteoarthritis. No erosions. No radiopaque foreign body. IMPRESSION: 1. No acute findings 2. Minimal calcific tendinitis of the rotator cuff This document has been electronically signed by: Mian Fournier MD on 04/16/2024 02:42:46
== END 2024-04-15 08:18 | disposition home or self-care (01) ==
LOC: HO.HOSX 08:17
DX: M25.512 Pain in left shoulder (principal); M25.612 Stiffness of left shoulder, not elsewhere classified; Z91.81 History of falling
CPT/HCPCS: 73030; 99212

== ENCOUNTER 2024-04-15 08:23 | Outpatient (AMB) | payer MEDICARE, SELFPAY ==
--- NOTE | 2024-04-15 08:31 | A.OFFVIS_ITS ---
Intake Visit Reasons: OV- fx of greater tuberosity of humerus Intake Note: Castillo is a 68 year old right hand dominant female who presents today for a follow up visit for her greater tuberosity fracture of left humerus s/p fall DOI: 03/04/2024. At her last visit patient was referred to physical therapy for gentle passive ROM and pendulums for left shoulder. Patient reports PT has been helpful and has had improvement in her ROM however she does struggle with being able to lift her arm fully. States difficulties with doing her hair. Allergies No Known Drug Allergies Allergy (Unknown, Verified 04/15/24 08:39) UNKNOWN HPI HPI OV- fx of greater tuberosity of humerus: Details: Patient is a 68-year-old who presents of the fracture of the greater tuberosity of her left humerus, date of injury 03/04/2024. Today, patient reports that her pain and range of motion are both improving since beginning working with PT, and she has discontinued use of the sling altogether since previous evaluation. The patient states that she does still feel her range of motion is limited, although it is improving. Denies any numbness or tingling in the left upper extremity. No other acute complaints or concerns at this time. [facility] Medical History Shingles ADD (attention deficit disorder) Incontinence Arthritis Heart murmur High cholesterol Anxiety Cataract Annual physical exam Parasite infection Wrist fracture, left Anemia Normal Pap smear Lumbar degenerative disc disease Mitral regurgitation Hyperlipidemia Depression Osteoporosis History of mammogram Surgical History Hx of appendectomy History of tonsillectomy History of laparoscopic appendectomy H/O colonoscopy Family History Father History of heart surgery High cholesterol Cardiovascular disease Mother Cardiovascular disease Mental health disorder Maternal Grandfather Diabetes mellitus Cancer Maternal Grandmother Cancer Paternal Grandmother Cancer Sister Asthma Paternal Grandfather Cardiovascular disease Cancer Social History Housing: House Alcohol intake: current Alcohol intake frequency: a few times a month Patient Tobacco Use Status: Never used Tobacco e-Cigarette/Vaping Use: Never Used Advance Directives Date on File: 09/15/20 Current occupational status: retired Current occupation: rt handed Cognitive needs: No Hearing needs: No Vision needs: Yes Review of Systems Const All systems reviewed & are unremarkable except as noted in HPI and below Physical Exam Extrem Other: On inspection, there is no visible deformity of the patient's left shoulder No erythema, edema, ecchymosis noted No lacerations, abrasions, open areas No evidence of infection No tenderness to palpation about the posterior aspect of the shoulder No tenderness palpation of the greater tuberosity of the humerus Range of motion of the elbow, wrist, hand full and intact Distal sensation intact Capillary refill brisk Quality Reporting (2019) Adult ([facility] ) Smoking risk assessment performed?: Yes Patient Tobacco Use Status: Never used Tobacco Results Reviewed Results Reviewed: X-rays obtained in the office today and independently reviewed by me, Eric Avendano PA-C, demonstrate very minimally displaced fracture of the greater tuberosity of the left proximal humerus with evidence of interval bony healing. Assessment & Plan Assessment & Plan (1) Greater tuberosity of humerus fracture: Code(s): S42.253A - Displaced fracture of greater tuberosity of unspecified humerus, initial encounter for closed fracture Category: Medical Plan 1. Greater tuberosity fracture of left humerus Date of injury 03/03/2024 Patient is educated about this injury and the typical recovery course At this time, patient is educated that she should avoid any aggressive active motion of the shoulder away from the body, including adduction, external rotation, and forward flexion, but can begin with gentle active range of motion away from the body Patient should continue working with PT Discontinue use of the sling Patient is amenable to this plan Patient will f/u in 4-5 weeks with repeat X rays, sooner with any acute concerns Coding Level of Care Code Global (53699) Diagnoses Greater tuberosity of humerus fracture S42.253A
== END 2024-04-15 08:55 | disposition home or self-care (01) ==
PROVIDERS: PCP Nurse Practitioner Family
DX: S42.252A Displaced fracture of greater tuberosity of left humerus, initial encounter for closed fracture (principal)
CPT/HCPCS: 99213

== ENCOUNTER 2024-04-23 14:03 | Outpatient (RCR) | payer OTHER, MEDICARE, SELFPAY ==
--- NOTE | 2024-03-21 14:12 | MHC.PT.EP ---
[facility] [place] Office [place] Office [place] Office [address] [phone] F: [phone] F: [phone] F: [phone] F: [phone] Physical Therapy Plan of Care Date of Evaluation: 03/21/24 Date of Surgery: Diagnosis: Greater tuberosity of humerus fracture (DOI 03/03/24) (MD Vigil) RS Assessment: Castillo is a 68 yo female who was referred by Eric Avendano PA-C of [facility] for Dx of Greater tuberosity of humerus fracture. She has hx of fall, osteoporosis, and low blood pressure. Impairments include decreased shoulder ROM, decreased shoulder strength, and TTP around injury site resulting in their inability to reach overhead or lift and carry. These deficits are impacting their ability to participate in washing hair and yoga. Pt will benefit from skilled PT to address impairments and meet their goals. Frequency and Duration: The patient will be seen 2x/week for 4 weeks Short Term Goals: 2 weeks Patient will be able to perform HEP to independently manage condition. Patient will demonstrate proper lifting techniques with object close to body to reduce stress on injury site. Paper Machine Back Tender Goals: 4 weeks Patient will increase shoulder flexion AROM to 90 to be able to reach cabinets in the home. Patient will increase shoulder ER AROM to 30 to be able to reach behind back to wash hair. Treatment Plan: Modalities to reduce pain, spasms and effusion. Manual therapy to restore motion and function. Therapeutic exercise to improve strength and flexibility. Neuromuscular re-education for posture and balance. Therapeutic activities to return to functional activities of daily living. Electronically signed by: Herman Adamson, PT, DPT Please sign and return to therapist. Thank you for your referral.
--- NOTE | 2024-04-24 15:53 | MHC.PT.DC ---
[facility] [place] Office [place] Office [address] Ve[address] Be[address] [phone] F: [phone] F: [phone] F: [phone] F: [phone] Physical Therapy Discharge Report Diagnosis: Greater tuberosity of humerus fracture (DOI 03/03/24) (MD Vigil) RS Date of Surgery: Date of Evaluation: 03/21/24 Date of Discharge: 04/24/24 Treatments to Date: 7 Cancellations to Date: No Shows to Date: Discharge Status: Achieved Goals Improved Function Independent with HEP Discharge Summary: Castillo presents with improved AROM and strength in her left shoulder and reports it is much more functional for her now with dressing and bathing. She feels ready for discharge and can continue with independent HEP to continue with ROM and slowly progress strengthening to tolerance with using pain as an indicator. All questions answered, discussed tissue healing time post fracture. Electronically signed by: Herman Adamson, PT, DPT Please sign and return to therapist. Thank you for your referral.
== END 2024-04-24 15:55 | disposition home or self-care (01) ==
LOC: HO.PT 14:03
PROVIDERS: PCP Nurse Practitioner Family
DX: S42.252A Displaced fracture of greater tuberosity of left humerus, initial encounter for closed fracture (principal)
CPT/HCPCS: 97110; 97112; 97140; 97161; 97535

== ENCOUNTER 2024-05-13 07:00 | Outpatient (REF) | payer OTHER, MEDICARE, SELFPAY ==
--- NOTE | ~2024-05-13 | XR_ITS ---
CLINICAL HISTORY: M25.512 - Pain in left shoulder 3 view left shoulder Comparison: DX - XR SHOULDER LT MIN 2V - 04/15/24 08:27 EST Findings: No fractures or dislocations. Mild osteoarthritic changes of the AC joint. No erosions. No radiopaque foreign body. Possible thin focus of calcific tendinitis along the supraspinatus, Similar to prior. IMPRESSION: 1. No acute fracture This document has been electronically signed by: Azam Miranda MD on 05/14/2024 01:30:22
--- OUTSIDE RECORDS SUMMARY | 2024-05-13 07:03 | XMS_ITS | Clinical Summary ---
Author Organization [facility] [address] [place] [address] [place] [address] Phone Care Team Providers Care Human Resources Vice President Name Role Phone Karma Ornelas Primary Care Provider [phone]- [phone] Allergies No known active allergies Medications escitalopram oxalate (LEXAPRO ORAL) Take 15 mg by mouth daily. Active alendronate (FOSAMAX) 70 mg tabletIndication s:Age related osteoporosis, unspecified pathological fracture presence Take 1 tablet (70 mg total) by mouth every 7 (seven) days. Take in the morning with a full glass of water, on an empty stomach, and do not take anything else by mouth or lie down for the next 30 min. 12 tablet 1 04/18/19 25 Active alendronate (FOSAMAX) 70 mg tablet Take 1 Tablet by mouth every 7 days. 10/27/19 24 025 Discontinued alendronate (FOSAMAX) 70 mg tablet TAKE 1 TABLET BY MOUTH EVERY 7 DAYS 12 tablet 3 04/16/19 25 025 Discontinued Active Problems Problem Noted Date Diagnosed Date Age related osteoporosis 04/11/2024 Encounters Date Type Department Care Team Description 04/11/2024 10:40 AM EST Office Visit [address] [phone] Ciarra Pyle PA Age related osteoporosis, unspecified pathological fracture presence (Primary Dx) from Last 3 Months Immunizations Name Administration Dates Next Due Moderna SARS-CoV-2 COVID-19, mRNA, LNP-S, preservative free 01/04/2022 Social History Tobacco Use Types Packs/Day Years Used Date Smoking Tobacco: Never Smokeless Tobacco: Never Tobacco Cessation:Counseling Given: Not Answered Alcohol Use Standard Drinks/Week Comments Not Currently 0 (1 standard drink = 0.6 oz pur e alcohol) Comments Unknown Sex and Gender Information Value Date Recorded Sex Assigned at Not on file Legal Sex Female 11:02 AM EDT Gender Identity Not on file Sexual Orientation Not on file Obstetrics History Last Filed Vital Signs Vital Sign Reading Time Taken Comments Blood Pressure 107/73 04/11/2024 10:48 AM EST Pulse 73 10/08/2023 1:37 PM EDT Temperature 36.1 ??C (97 ??F) 04/11/2024 10: 48 AM EST Respiratory Rate - - Oxygen Saturation 100% 04/11/2024 10: 48 AM EST Inhaled Oxygen Concentration - - Weight 67.9 kg (149 lb 12.8 oz) 025 10:48 AM EST Height 167.6 cm (5' 6 ) 04/11/2024 10:4 8 AM EST Body Mass Index 24.18 04/11/2024 10:48 AM EST Plan of Treatment Upcoming Encounters Date Type Department Care Team (Late st Contact Info) Description 04/17/2025 10:20 AM EST Office Visit Endocrinology - [place] [address] [place] [address] Ciarra Pyle PA [address] [place] [address] Health Maintenance Due Date Last Done Comments Breast Cancer Screening 1955 Pneumococcal Vaccine: 50+ Years (1 of 1 - PCV) 2018 Colorectal Cancer Screening: Colonoscopy 10/26/2023 Depression Screening 10/26/2023 Falls Risk Assessment 10/26/2023 Hepatitis C Screening 10/26/2023 Medicare Annual Wellness Visit 10/26/2023 Osteoporosis Screening (Bone Density Screening) 10/26/2023 Social Influencers of Health Screening 10/26/2023 DTaP,Tdap,and Td Vaccines (2 - Td or Tdap) 10/10/2025 10/11/2015 Zoster Vaccines Completed 09/29/2020, 02/12/2020 RSV Immunization Patients 60+ Years Old Completed 04/12/2023 COVID-19 Vaccine Completed 12/28/2023, , 01/04/2022, Additional history exists Influenza Vaccine Completed 12/28/2023, , 01/04/2022, Additional history exists HIB Vaccines Aged Out No longer eligi ble based on patient's age to complete this topic HPV Vaccines Aged Out No longer eligi ble based on patient's age to complete this topic Hepatitis A Vaccines Aged Out No long er eligible based on patient's age to complete this topic Hepatitis B Vaccines Aged Out No long er eligible based on patient's age to complete this topic IPV Vaccines Aged Out No longer eligi ble based on patient's age to complete this topic MMR Vaccines Aged Out No longer eligi ble based on patient's age to complete this topic Meningococcal ACWY Vaccine Aged Out N o longer eligible based on patient's age to complete this topic RSV Immunization Patients Under 20 months Aged Out No longer eligible based on patient's age to complete this topic Varicella Vaccines Aged Out No longer eligible based on patient's age to complete this topic Procedures Procedure Name Priority Date/Time Associated Diagnosis Comments CALCIUM, URINE, 24H Routine 04/22/2024 8 :05 AM EST Age related osteoporosis, unspecified pathological fracture presence VITAMIN D 25 HYDROXY Routine 04/11/2024 11:44 AM EST Age related osteoporosis, unspecified pathological fracture presence BASIC METABOLIC PANEL Routine 04/11/2024 11:44 AM EST Age related osteoporosis, unspecified pathological fracture presence PARATHYROID HORMONE INTACT Routine 04/11/2024 11:44 AM EST Age related osteoporosis, unspecified pathological fracture presence from Last 3 Months Results * Calcium, urine, 24H (04/22/2024 8:05 AM EST) Calcium, Ur 12.0 mg/dL LAB CHEMISTRY METHOD 04/22/2024 11:25 AM EST [facility] Calcium, 24H Urine 276 50 - 400 mg/24 hr LAB CHEMISTRY METHOD 04/22/2024 11:25 AM [facility] Urine Volume 2,300 mL LAB CHEMISTRY METHOD 04/22/2024 11:25 AM [facility] Collection Interval, Ur 24 hr LAB CHEMISTRY METHOD 04/22/2024 11:25 AM [facility] Urine Urine specimen from urethra / Unknown Non-blood Collection / Unknown 04/22/2024 8:05 AM EST 04/22/2024 8:05 AM EST [facility] MONTO[facility] URINE ORDERABLES Final Resul t Performing Organization Address City/[facility]/ZIP Co de Phone Number [facility] [address] [place] [address], [place] [phone] * Vitamin D 25 hydroxy (04/11/2024 11:44 AM EST) Vit D, 25-Hydroxy 30.9 30.0 - 80.0 ng/mL LAB CHEMISTRY METHOD 04/11/2024 2:34 PM [facility] Blood Venous blood specimen / Unknown Venipuncture / Unknown 04/11/2024 11:44 AM EST 04/11/2024 11:44 AM EST [facility] BLOOD ORDERABLES Final Resul t [facility] [address] [place] [address], [place] [phone] * (ABNORMAL) Parathyroid hormone intact (04/11/2024 11:44 AM EST) PTH 150.1(H) 18.5 - 88.0 pcg/mL LAB CHEMISTRY METHOD 04/11/2024 2:38 PM [facility] Blood Venous blood specimen / Unknown Venipuncture / Unknown 04/11/2024 11:44 AM EST 04/11/2024 11:44 AM EST us C[facility]TO[facility] BLOOD ORDERABLES Final Resul t [facility] [address] [place] [address], * Basic metabolic panel (04/11/2024 11:44 AM EST) Sodium 139 133 - 145 mmol/L LAB CHEMISTRY METHOD 04/11/2024 2:24 PM EST [facility] Potassium 4.2 3.5 - 5.5 mmol/L LAB CHEMISTRY METHOD 04/11/2024 2:24 PM [facility] Chloride 108 96 - 110 mmol/L LAB CHEMISTRY METHOD 04/11/2024 2:24 PM [facility] CO2 26 21 - 32 mmol/L LAB CHEMISTRY METHOD 04/11/2024 2:24 PM [facility] Anion Gap 5 3 - 11 LAB CHEMISTRY METHOD 04/11/2024 2:24 PM [facility] Glucose 87 70 - 100 mg/dL LAB CHEMISTRY METHOD 04/11/2024 2:24 PM [facility] BUN 16 5 - 25 mg/dL LAB CHEMISTRY METHOD 04/11/2024 2:24 PM [facility] Creatinine 0.82 0.50 - 1.10 mg/dL LAB CHEMISTRY METHOD 04/11/2024 2:24 PM [facility] eGFR 77 >=60 mL/min/1. 73m2 LAB CHEMISTRY METHOD 04/11/2024 2:24 PM [facility] Comment:Calculation based on the??Chronic Kidney Disease Epidemiology Collaboration (CKD-EPI) equation refit??without adjustment for race. BUN/Creatinine Ratio 19.5 LAB CHEMISTRY METHOD 04/11/2024 2:24 PM [facility] Calcium 9.6 8.5 - 10.5 mg/dL LAB CHEMISTRY METHOD 04/11/2024 2:24 PM [facility] Blood Venous blood specimen / Unknown Venipuncture / Unknown 04/11/2024 11:44 AM EST 04/11/2024 11:44 AM EST us Ciarra MONTOYA LAB BLOOD ORDERABLES Final Resul t [facility] [address] [place] [address], from Last 3 Months Insurance MEDICARE [facility] Care Teams Human Resources Vice President Relationship Specialty Start Date End Date Karma Ornelas FNP [address] [place] [address] [place] [address] PCP - General Nurse Practitioner 04/16/24
--- OUTSIDE RECORDS SUMMARY | 2024-05-13 07:04 | XMS_ITS | Patient Health Record ---
Author Organization [facility] Address [address] [place] [id number] Care Team Providers Care Multifocal Button Grinder Name Role Phone Nickie Finn MD Primary Care Provider Sabaa Shashi Young Unavailable [phone] REASON FOR REFERRAL No Information MEDICATIONS Medication [...] malignant neoplasm of colon (Z12.11) Active confirmed 427010125 Problem Encounter for screening for malignant neoplasm of rectum (Z12.12) Active confirmed Screening for malignant neoplasm of rectum (870777694) Problem History of adenomatous polyp of colon (Z86.010) Active confirmed 046111813 Problem Preprocedural examination (Z01.818) Active confirmed 31722884 Problem Change in bowel habits (R19.4) Active confirmed 897234272 Problem Diarrhea, unspecified type (R19.7) Active confirmed 27347142 Problem Diarrhea of infectious origin (A09) Active confirmed 20606235 Problem Diverticulosis of large intestine without perforation or abscess without bleeding (K57.30) Active confirmed Diverticul ar disease of colon (221067714) PLAN OF TREATMENT Pending Test Test Name [...] [address] [facility] [place] [address] [id number] FRANNY FRANCISCO Self - patient is the insured [employer] CLAIM[employer] [address] [place] [address] [phone] [id number] FRANNY FRANCISCO Self - patient is the insured MEDICAL (GENERAL) HISTORY Medical History History ICD Code Tubular adenomas removed in 2006--neg colonoscopy in 2009 except for diverticulosis and internal hemorrhoids ADD/Anxiety Denies HI,DM,CVA,Lung disease,renal dise ase Neg. colonoscopy in 11/2015 [...]
== END 2024-05-13 07:01 | disposition home or self-care (01) ==
LOC: HO.HOSX 07:00
DX: M25.512 Pain in left shoulder (principal); S42.252A Displaced fracture of greater tuberosity of left humerus, initial encounter for closed fracture; W18.30XA Fall on same level, unspecified, initial encounter; Y93.9 Activity, unspecified; Y92.9 Unspecified place or not applicable; Y99.9 Unspecified external cause status
CPT/HCPCS: 73030; 99212

== ENCOUNTER 2024-05-13 08:32 | Outpatient (REF) | payer OTHER, MEDICARE, SELFPAY ==
--- OUTSIDE RECORDS SUMMARY | 2024-05-13 08:51 | XMS_ITS | Clinical Summary ---
Author Organization [facility] [address] [place] [address] [place] [address] Phone Care Team Providers Care Dry Cure Worker Name Role Phone Karma Ornelas Primary Care Provider +1- [phone] Allergies No known active allergies Medications escitalopram [...] Description 04/11/2024 10:40 AM EST Office Visit [address] [phone] Ciarra Pyle PA Age related osteoporosis, unspecified [...] 10:20 AM EST Office Visit Endocrinology - [place] [address] [place] [address] Ciarra Pyle PA [address] [place] [address] Health Maintenance Due Date Last Done Comments Breast Cancer Screening 1955 Pneumococcal Vaccine: 50+ Years (1 of 1 - PCV) 10/30/2003 DTaP,Tdap,and Td Vaccines (2 - Td or Tdap) 11/08/2015 10/11/2015 Colorectal Cancer Screening: Colonoscopy 10/26/2023 Depression Screening 10/26/2023 Falls Risk Assessment 10/26/2023 Hepatitis C Screening 10/26/2023 Medicare Annual Wellness Visit 10/26/2023 Osteoporosis Screening (Bone Density Screening) 10/26/2023 Social Influencers of Health Screening 10/26/2023 Zoster Vaccines Completed 09/29/2020, 02/12/2020 RSV Immunization [...] patient's age to complete this topic Meningococcal B Vacine Aged Out No lo nger eligible based on patient's age to complete [...] LAB CHEMISTRY METHOD 04/22/2024 11:25 AM EST [facility] Calcium, 24H Urine 276 50 - 400 mg/24 hr LAB CHEMISTRY METHOD 04/22/2024 11:25 AM EST [facility] Urine Volume 2,300 mL LAB CHEMISTRY METHOD 04/22/2024 11:25 AM EST [facility] Collection Interval, Ur 24 hr LAB CHEMISTRY METHOD 04/22/2024 11:25 AM EST [facility] Urine Urine specimen from urethra / Unknown Non-blood Collection / Unknown 04/22/2024 8:05 AM EST 04/22/2024 8:05 AM EST [facility] URINE ORDERABLES Final Resul t [facility] [address] [place] [address], [place] [phone] * Vitamin D 25 hydroxy (04/11/2024 11:44 AM EST) Vit D, 25-Hydroxy 30.9 30.0 - 80.0 ng/mL LAB CHEMISTRY METHOD 04/11/2024 2:34 PM EST [facility] Blood Venous blood specimen / Unknown Venipuncture / Unknown 04/11/2024 11:44 AM EST 04/11/2024 11:44 AM EST [facility] BLOOD ORDERABLES Final Resul t [facility] [address] [place] [address], [place] [phone] * (ABNORMAL) Parathyroid hormone intact (04/11/2024 11:44 AM EST) PTH 150.1(H) 18.5 - 88.0 pcg/mL LAB CHEMISTRY METHOD 04/11/2024 2:38 PM EST [facility] Blood Venous blood specimen / Unknown Venipuncture / Unknown 04/11/2024 11:44 AM EST 04/11/2024 11:44 AM EST us Ciarra MONTOYA LAB BLOOD ORDERABLES Final Resul t [facility] [address] [place] [address], [place] [phone] * Basic metabolic panel (04/11/2024 11:44 AM EST) Sodium 139 133 - 145 mmol/L LAB CHEMISTRY METHOD 04/11/2024 2:24 PM [facility] Potassium 4.2 3.5 - 5.5 mmol/L LAB CHEMISTRY METHOD 04/11/2024 2:24 PM [facility] Chloride 108 96 - 110 mmol/L LAB CHEMISTRY METHOD 04/11/2024 2:24 PM [facility] CO2 26 21 - 32 mmol/L LAB CHEMISTRY METHOD 04/11/2024 2:24 PM [facility] Anion Gap 5 3 - 11 LAB CHEMISTRY METHOD 04/11/2024 2:24 PM [facility] Glucose 87 70 - 100 mg/dL LAB CHEMISTRY METHOD 04/11/2024 2:24 PM [facility] BUN 16 5 - 25 mg/dL LAB CHEMISTRY METHOD 04/11/2024 2:24 PM [facility] Creatinine 0.82 0.50 - 1.10 mg/dL LAB CHEMISTRY METHOD 04/11/2024 2:24 PM [facility] eGFR 77 >=60 mL/min/1. 73m2 LAB CHEMISTRY METHOD 04/11/2024 2:24 PM [facility] Comment:Calculation based on the??Chronic Kidney Disease Epidemiology Collaboration (CKD-EPI) equation refit??without adjustment for race. BUN/Creatinine Ratio 19.5 LAB CHEMISTRY METHOD 04/11/2024 2:24 PM [facility] Calcium 9.6 8.5 - 10.5 mg/dL LAB CHEMISTRY METHOD 04/11/2024 2:24 PM EST [facility] Blood Venous blood specimen / Unknown Venipuncture / Unknown 04/11/2024 11:44 AM EST 04/11/2024 11:44 AM EST us [facility] LAB BLOOD ORDERABLES Final Resul t [facility] [address] [place] [address], [place] [phone] from Last 3 Months Insurance MEDICARE [facility] Care Teams Dry Cure Worker Relationship Specialty Start Date End Date Karma Ornelas FNP [address] [place] [address] [place] [address] PCP - General Nurse Practitioner 04/16/24
== END 2024-05-13 08:33 | disposition home or self-care (01) ==
LOC: HO.XRAY 08:32
PROVIDERS: PCP Nurse Practitioner Family
DX: Z13.89 Encounter for screening for other disorder (principal)

== ENCOUNTER → 2024-05-13 08:56 | Outpatient (BNV) | payer OTHER, MEDICARE, SELFPAY | PROVIDERS: Visit Provider Radiology Diagnostic Radiology | DX: M25.512 Pain in left shoulder (principal); M19.012 Primary osteoarthritis, left shoulder | CPT/HCPCS: 73030 ==

== ENCOUNTER 2024-05-13 09:08 | Outpatient (AMB) | payer OTHER, MEDICARE, SELFPAY ==
--- NOTE | 2024-05-13 09:09 | MHC.OFFVIS ---
Intake Visit Reasons: OV- fx of greater tuberosity of humerus-w/xray Intake Note: Castillo is a 68 year old right hand dominant female who presents today for a follow up visit for her greater tuberosity fracture of left humerus s/p fall DOI: 03/04/2024. At her last visit she was instructed to discontinue use of the sling. Patient reports that she is getting better, she has completed physical therapy. Denies numbness and tingling. Allergies No Known Drug Allergies Allergy (Unknown, Verified 04/15/24 08:39) UNKNOWN HPI HPI OV- fx of greater tuberosity of humerus-w/xray: Details: Castillo is a 68 year old right hand dominant female who presents today for a follow up visit for her greater tuberosity fracture of left humerus s/p fall DOI: 03/04/2024. At her last visit she was instructed to discontinue use of the sling. Patient reports that she is getting better, she has completed physical therapy. Denies numbness and tingling. PFSH Medical History Shingles ADD (attention deficit disorder) Incontinence Arthritis Heart murmur High cholesterol Anxiety Cataract Annual physical exam Parasite infection Wrist fracture, left Anemia Normal Pap smear Lumbar degenerative disc disease Mitral regurgitation Hyperlipidemia Depression Osteoporosis History of mammogram Surgical History Hx of appendectomy History of tonsillectomy History of laparoscopic appendectomy H/O colonoscopy Family History Father History of heart surgery High cholesterol Cardiovascular disease Mother Cardiovascular disease Mental health disorder Maternal Grandfather Diabetes mellitus Cancer Maternal Grandmother Cancer Paternal Grandmother Cancer Sister Asthma Paternal Grandfather Cardiovascular disease Cancer Social History Housing: House Alcohol intake: current Alcohol intake frequency: a few times a month Patient Tobacco Use Status: Never used Tobacco e-Cigarette/Vaping Use: Never Used Advance Directives Date on File: 09/15/20 Current occupational status: retired Current occupation: rt handed Cognitive needs: No Hearing needs: No Vision needs: Yes Physical Exam Extrem Other: On inspection, there is no visible deformity of the patient's left shoulder No erythema, edema, ecchymosis noted No lacerations, abrasions, open areas No evidence of infection No tenderness to palpation about the posterior aspect of the shoulder No tenderness palpation of the greater tuberosity of the humerus Patient is able to forward flex the left shoulder to 90 degrees without difficulty Patient is able to externally rotate the left shoulder to approximately 45 degrees, limited due to pain and stiffness Range of motion of the elbow, wrist, hand full and intact Distal sensation intact Capillary refill brisk Quality Reporting (2019) Adult ([facility] ) Smoking risk assessment performed?: Yes Patient Tobacco Use Status: Never used Tobacco Results Reviewed Results Reviewed: X-rays obtained in the office today and independently reviewed by me, Eric Avendano PA-C, demonstrate very minimally displaced fracture of the greater tuberosity of the left proximal humerus with evidence of good interval bony healing. Assessment & Plan Assessment & Plan (1) Greater tuberosity of humerus fracture: Code(s): S42.253A - Displaced fracture of greater tuberosity of unspecified humerus, initial encounter for closed fracture Category: Medical Plan 1. Greater tuberosity fracture of left humerus Date of injury 03/03/2024 Patient is educated about this injury and the typical recovery course At this time, patient is educated that she can begin with more strenuous range of motion and strengthening of the left shoulder, however still avoiding any very heavy lifting Patient should continue working with PT Discontinue use of the sling Patient is amenable to this plan Patient will f/u in 4-5 weeks with repeat X rays, sooner with any acute concerns Orders: Orders XR shoulder LT min 2V Today M25.512 - Pain in left shoulder PT Evaluation and Treatment Today S42.253A - Displaced fracture of greater tuberosity of unspecified humerus, initial encounter for closed fracture XR shoulder RT min 2V Today M25.511 - Pain in right shoulder Coding Level of Care Code Global (15662) Diagnoses Greater tuberosity of humerus fracture S42.253A
--- OUTSIDE RECORDS SUMMARY | 2024-05-13 10:00 | XMS_ITS | Clinical Summary ---
Author Organization [facility] [address] [place] [address] [place] [address] Phone Care Team Providers Care Scan Coordinator Name Role Phone Karma Ornelas Primary Care Provider [phone]- [phone] Allergies No known active allergies Medications escitalopram [...] Description 04/11/2024 10:40 AM EST Office Visit [address] [phone] Ciarra Pyle PA Age related osteoporosis, unspecified [...] 10:20 AM EST Office Visit Endocrinology - [place] [address] [place] [address] Ciarra Pyle PA [address] [place] [address] Health Maintenance Due Date Last Done Comments [...] LAB CHEMISTRY METHOD 04/22/2024 11:25 AM EST [facility] Calcium, 24H Urine 276 50 - 400 mg/24 hr LAB CHEMISTRY METHOD 04/22/2024 11:25 AM EST [facility] Urine Volume 2,300 mL LAB CHEMISTRY METHOD 04/22/2024 11:25 AM EST [facility] Collection Interval, Ur 24 hr LAB CHEMISTRY METHOD 04/22/2024 11:25 AM EST [facility] Urine Urine specimen from urethra / Unknown Non-blood Collection / Unknown 04/22/2024 8:05 AM EST 04/22/2024 8:05 AM EST Ciarra MONTOYA LAB URINE ORDERABLES Final Resul t [facility] [address] [place] [address], [place] [phone] * Vitamin D 25 hydroxy (04/11/2024 11:44 AM EST) Vit D, 25-Hydroxy 30.9 30.0 - 80.0 ng/mL LAB CHEMISTRY METHOD 04/11/2024 2:34 PM EST [facility] Blood Venous blood specimen / Unknown Venipuncture / Unknown 04/11/2024 11:44 AM EST 04/11/2024 11:44 AM EST Ciarra MONTOYA LAB BLOOD ORDERABLES Final Resul t [facility] [address] [place] [address], [place] [phone] * (ABNORMAL) Parathyroid hormone intact (04/11/2024 11:44 AM EST) PTH 150.1(H) 18.5 - 88.0 pcg/mL LAB CHEMISTRY METHOD 04/11/2024 2:38 PM EST [facility] Blood Venous blood specimen / Unknown Venipuncture / Unknown 04/11/2024 11:44 AM EST 04/11/2024 11:44 AM EST us Ciarra MONTOYA LAB BLOOD ORDERABLES Final Resul t [facility] [address] [place] [address], [place] [phone] * Basic metabolic panel (04/11/2024 11:44 AM EST) Sodium 139 133 - 145 mmol/L LAB CHEMISTRY METHOD 04/11/2024 2:24 PM [facility] Potassium 4.2 3.5 - 5.5 mmol/L LAB CHEMISTRY METHOD 04/11/2024 2:24 PM [facility] Chloride 108 96 - 110 mmol/L LAB CHEMISTRY METHOD 04/11/2024 2:24 PM [facility] CO2 26 21 - 32 mmol/L LAB CHEMISTRY METHOD 04/11/2024 2:24 PM [facility] Anion Gap 5 3 - 11 LAB CHEMISTRY METHOD 04/11/2024 2:24 PM [facility] Glucose 87 70 - 100 mg/dL LAB CHEMISTRY METHOD 04/11/2024 2:24 PM [facility] BUN 16 5 - 25 mg/dL LAB CHEMISTRY METHOD 04/11/2024 2:24 PM [facility] Creatinine 0.82 0.50 - 1.10 mg/dL LAB CHEMISTRY METHOD 04/11/2024 2:24 PM [facility] eGFR 77 >=60 mL/min/1. 73m2 LAB CHEMISTRY METHOD 04/11/2024 2:24 PM [facility] Comment:Calculation based on the??Chronic Kidney Disease Epidemiology Collaboration (CKD-EPI) equation refit??without adjustment for race. BUN/Creatinine Ratio 19.5 LAB CHEMISTRY METHOD 04/11/2024 2:24 PM [facility] Calcium 9.6 8.5 - 10.5 mg/dL LAB CHEMISTRY METHOD 04/11/2024 2:24 PM EST [facility] Blood Venous blood specimen / Unknown Venipuncture / Unknown 04/11/2024 11:44 AM EST 04/11/2024 11:44 AM EST us Ciarra MONTOYA LAB BLOOD ORDERABLES Final Resul t [facility] [address] [place] [address], [place] [phone] from Last 3 Months Insurance MEDICARE [facility] Care Teams Scan Coordinator Relationship Specialty Start Date End Date Karma Ornelas FNP [address] [place] [address] [place] [phone] PCP - General Nurse Practitioner 04/16/24
== END 2024-05-13 09:38 | disposition home or self-care (01) ==
LOC: HO.HOS 09:08
PROVIDERS: PCP Nurse Practitioner Family
DX: S42.252A Displaced fracture of greater tuberosity of left humerus, initial encounter for closed fracture (principal)
CPT/HCPCS: 99213

== ENCOUNTER 2024-05-30 09:36 | Outpatient (AMB) | payer MEDICARE, SELFPAY ==
--- NOTE | 2024-05-30 09:44 | A.OFFPSYCH_ITS ---
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 she struggles with sadness, loneliness, and self worth off and on. she has had a consult for ketamine tx. she will start in May with Dr Forrester. she continues with therapy. No SI no HI; she continues with lexapro with no side effects Past Psychiatric History: no IPLOC, no PHP or IOP; outpatient therapy with Leslie FARRIS in [place] for years; long history of anxiety and dysthymia, recent dx of ADHD Subjective Subjective Subjective Medication Compliance: Yes Side effects from medications: No Review of Systems Medical Review of Systems: unchanged Mental Status Exam Mental Status Exam Patient Appearance: Well Grooomed and Appropriate Patient Orientation: Person, Place, Time and Situation Level of Consciousness: Awake and Appropriate Patient Behavior: Appropriate and Cooperative Mood Description: Sad Affect Description: Sad Patient Cognition Impaired: No Ability to Follow Directions: Good Speech Pattern: Clear and Appropriate Memory Description: Intact Hallucinations: None Delusions: Not Present Thought Process: Intact and Goal Oriented Thought Content: positive for Intact and positive for Goal Oriented Judgement: Good Assessment and Plan Assessment & Plan (1) Major depressive disorder, recurrent episode with anxious distress: Status: Acute Code(s): F33.9 - Major depressive disorder, recurrent, unspecified Medications: Refilled escitalopram oxalate 15 mg orally; 135 tabs 1RF 90 days Counseling and coordination of Care Pt. Self Management counseling: Maintenance-social rhythm, Nutrition education and improvement, Sleep hygiene, General coping skills and Problem solving Medication management counseling: Effectiveness, Side effects, Dosing range, Duration, Drug interaction and Adherence Diagnosis and Prognosis Counseling: Accuracy of diagnosis, Prognosis over time, Impact of diagnosis on life functions, Impact of family relationship, Problematic behaviors secondary to diagnosis and Adequacy of current interventions Details: I spent 35 minutes reviewing the record, seeing the patient and documenting in the medical record. Counseling provided to the patient/caregiver as outlined below. Addressed patient/caregiver concerns regarding current medication regime including effective adherence. Addressed patient/caregiver concerns regarding diagnosis and prognosis including accuracy of diagnosis, prognosis over time, impact of diagnosis. Addressed patient/caregiver concerns regarding impact of recent stressors. [facility] Medical History (Reviewed 03/11/24 @ 08:28 by Edyta Ventura [facility]) Shingles ADD (attention deficit disorder) Incontinence Arthritis Heart murmur High cholesterol Anxiety Cataract Annual physical exam Parasite infection Wrist fracture, left Anemia Normal Pap smear Lumbar degenerative disc disease Mitral regurgitation Hyperlipidemia Depression Osteoporosis History of mammogram Surgical History Hx of appendectomy History of tonsillectomy History of laparoscopic appendectomy H/O colonoscopy Family History (Reviewed 03/11/24 @ 08:28 by Edyta Ventura [facility]) Father History of heart surgery High cholesterol Cardiovascular disease Mother Cardiovascular disease Mental health disorder Maternal Grandfather Diabetes mellitus Cancer Maternal Grandmother Cancer Paternal Grandmother Cancer Sister Asthma Paternal Grandfather Cardiovascular disease Cancer Social History (Reviewed 03/11/24 @ 08:28 by Edyta Ventura 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
--- OUTSIDE RECORDS SUMMARY | 2024-05-30 10:23 | XMS_ITS | Patient Health Record ---
Author Organization [facility] Address [address] [place] [address] Care Team Providers Care Vending Machine Repairer Name Role Phone Nickie Finn MD Primary Care Provider Unavaila Shashi Young Unavailable [phone] REASON FOR REFERRAL No Information MEDICATIONS Medication [...] malignant neoplasm of colon (Z12.11) Active confirmed 232676327 Problem History of adenomatous polyp of colon (Z86.010) Active confirmed 983572604 Problem Change in bowel habits (R19.4) Active confirmed 568483055 Problem Diverticulosis of large intestine without perforation or abscess without bleeding (K57.30) Active confirmed Diverticul ar disease of colon (478942878) Problem Encounter for screening for malignant neoplasm of rectum (Z12.12) Active confirmed Screening for malignant neoplasm of rectum (662990247) Problem Preprocedural examination (Z01.818) Active confirmed 85799606 Problem Diarrhea of infectious origin (A09) Active confirmed 43788391 Problem Diarrhea, unspecified type (R19.7) Active confirmed 09320018 PLAN OF TREATMENT Pending Test Test Name [...] [address] [place] [place] [address] [phone] [id number] FRANNY FRANCISCO Self - patient is the insured [employer] [address] [place] [phone] [id number] FRANNY FRANCISCO Self - patient is the insured MEDICAL (GENERAL) HISTORY Medical History History ICD Code Tubular adenomas removed in 2006--neg colonoscopy in 2009 except for diverticulosis and internal hemorrhoids ADD/Anxiety Denies PR,DM,CVA,Lung disease,renal dise ase Neg. colonoscopy in 11/2015 [...]
--- OUTSIDE RECORDS SUMMARY | 2024-05-30 10:23 | XMS_ITS | Clinical Summary ---
Author Organization [facility] [address] [place] [address] [place] [address] Phone Care Team Providers Care Mortgage Loan Officer Originator Name Role Phone [employer] Laboy Primary Care Provider [phone]- [phone] Allergies No known active allergies Medications escitalopram oxalate (LEXAPRO ORAL) Take 15 mg by mouth daily. Active alendronate (FOSAMAX) 70 mg tabletIndications :Age related osteoporosis, unspecified pathological fracture presence Take 1 tablet (70 mg total) by mouth every 7 (seven) days. Take in the morning with a full glass of water, on an empty stomach, and do not take anything else by mouth or lie down for the next 30 min. 12 tablet 1 5 Active Active Problems Problem Noted Date Diagnosed Date Age related osteoporosis 04/11/2024 Encounters Date Type Department Care Team Description 04/11/2024 10:40 AM EST Office Visit Endocrinology [address] [phone] Ciarra Pyle PA Age related osteoporosis, unspecified [...] 10:20 AM EST Office Visit Endocrinology - [place] [address] [place] [address] Ciarra Pyle PA [address] [place] [address] Health Maintenance Due Date Last Done Comments Breast Cancer Screening 1955 Pneumococcal Vaccine: 50+ Years (1 of 1 - PCV) 10/30/2003 Colorectal Cancer Screening: Colonoscopy 10/26/2023 Depression Screening [...] LAB CHEMISTRY METHOD 04/22/2024 11:25 AM EST [facility] Calcium, 24H Urine 276 50 - 400 mg/24 hr LAB CHEMISTRY METHOD 04/22/2024 11:25 AM EST [facility] Urine Volume 2,300 mL LAB CHEMISTRY METHOD 04/22/2024 11:25 AM [facility] Collection Interval, Ur 24 hr LAB CHEMISTRY METHOD 04/22/2024 11:25 AM EST [facility] Urine Urine specimen from urethra / Unknown Non-blood Collection / Unknown 04/22/2024 8:05 AM EST 04/22/2024 8:05 AM EST us Ciarra MONTOYA LAB URINE ORDERABLES Final Resul t Performing Organization Address [facility] de Phone Number [facility] [address] [place] [address], [place] [phone] * Vitamin D 25 hydroxy (04/11/2024 11:44 AM EST) Vit D, 25-Hydroxy 30.9 30.0 - 80.0 ng/mL LAB CHEMISTRY METHOD 04/11/2024 2:34 PM EST [facility] Blood Venous blood specimen / Unknown Venipuncture / Unknown 04/11/2024 11:44 AM EST 04/11/2024 11:44 AM EST us Ciarra MONTOYA LAB BLOOD ORDERABLES Final Resul t Performing Organization Address [facility] de Phone Number [facility] [address] [place] [address], [place] [phone] * (ABNORMAL) Parathyroid hormone intact (04/11/2024 11:44 AM EST) PTH 150.1(H) 18.5 - 88.0 pcg/mL LAB CHEMISTRY METHOD 04/11/2024 2:38 PM EST [facility] Blood Venous blood specimen / Unknown Venipuncture / Unknown 04/11/2024 11:44 AM EST 04/11/2024 11:44 AM EST us Ciarra MONTOYA LAB BLOOD ORDERABLES Final Resul t Performing Organization Address [facility] de Phone Number [facility] [address] [place] [address], * Basic metabolic panel (04/11/2024 11:44 AM EST) Sodium 139 133 - 145 mmol/L LAB CHEMISTRY METHOD 04/11/2024 2:24 PM [facility] Potassium 4.2 3.5 - 5.5 mmol/L LAB CHEMISTRY METHOD 04/11/2024 2:24 PM [facility] Chloride 108 96 - 110 mmol/L LAB CHEMISTRY METHOD 04/11/2024 2:24 PM [facility] CO2 26 21 - 32 mmol/L LAB CHEMISTRY METHOD 04/11/2024 2:24 PM [facility] Anion Gap 5 3 - 11 LAB CHEMISTRY METHOD 04/11/2024 2:24 PM [facility] Glucose 87 70 - 100 mg/dL LAB CHEMISTRY METHOD 04/11/2024 2:24 PM [facility] BUN 16 5 - 25 mg/dL LAB CHEMISTRY METHOD 04/11/2024 2:24 PM [facility] Creatinine 0.82 0.50 - 1.10 mg/dL LAB CHEMISTRY METHOD 04/11/2024 2:24 PM [facility] eGFR 77 >=60 mL/min/1. 73m2 LAB CHEMISTRY METHOD 04/11/2024 2:24 PM [facility] Comment:Calculation based on the??Chronic Kidney Disease Epidemiology Collaboration (CKD-EPI) equation refit??without adjustment for race. BUN/Creatinine Ratio 19.5 LAB CHEMISTRY METHOD 04/11/2024 2:24 PM [facility] Calcium 9.6 8.5 - 10.5 mg/dL LAB CHEMISTRY METHOD 04/11/2024 2:24 PM [facility] Blood Venous blood specimen / Unknown Venipuncture / Unknown 04/11/2024 11:44 AM EST 04/11/2024 11:44 AM EST us Ciarra MONTOYA LAB BLOOD ORDERABLES Final Resul t [facility] [address] [place] [address], [place] [phone] from Last 3 Months Insurance MEDICARE [facility] Care Teams Mortgage Loan Officer Originator Relationship Specialty Start Date End Date Karma Ornelas FNP [address] [place] [address] [place] [phone] PCP - General Nurse Practitioner 04/16/24
== END 2024-05-30 10:14 | disposition home or self-care (01) ==
LOC: HO.HOP 09:36
PROVIDERS: PCP Nurse Practitioner Family; Visit Provider Clinical Nurse Specialist Psychiatric/Mental Health
DX: F33.9 Major depressive disorder, recurrent, unspecified (principal)
CPT/HCPCS: 99214

== ENCOUNTER → 2024-05-30 09:36 | Outpatient (BNVA) | payer MEDICARE, SELFPAY | PROVIDERS: PCP Nurse Practitioner Family; Visit Provider Clinical Nurse Specialist Psychiatric/Mental Health | DX: F33.9 Major depressive disorder, recurrent, unspecified (principal) | CPT/HCPCS: 99212 ==

== ENCOUNTER 2024-06-24 09:44 | Outpatient (AMB) | payer MEDICARE, SELFPAY ==
--- NOTE | 2024-06-24 09:50 | A.OFFVIS_ITS ---
Vital Signs 06/24/24 09:51 Height 5 ft 6 in Weight 150 lb BMI 24.2 Handedness Right Intake Visit Reasons: OV-fx of greater tuberosity of humerus-03/04/2024 Intake Note: Castillo is a 68 year old right hand dominant female who presents today for a follow up visit for her greater tuberosity fracture of left humerus s/p fall DOI: 03/04/2024. Patient reports her ROM is still limited. She is having difficulty with rotation of her arm and lifting above head. She expresses when she attempts to lift or rotate her arm she gets pain. Denies numbness and tingling. Allergies No Known Drug Allergies Allergy (Unknown, Verified 06/24/24 09:52) UNKNOWN HPI HPI OV-fx of greater tuberosity of humerus-03/04/2024: Details: Castillo is a 68 year old right hand dominant female who presents today for a follow up visit for her greater tuberosity fracture of left humerus s/p fall DOI: 03/04/2024. Patient reports her ROM is still limited. She is having difficulty with rotation of her arm and lifting above head. She expresses when she attempts to lift or rotate her arm she gets pain. Denies numbness and tingling. [facility] Medical History Shingles ADD (attention deficit disorder) Incontinence Arthritis Heart murmur High cholesterol Anxiety Cataract Annual physical exam Parasite infection Wrist fracture, left Anemia Normal Pap smear Lumbar degenerative disc disease Mitral regurgitation Hyperlipidemia Depression Osteoporosis History of mammogram Surgical History Hx of appendectomy History of tonsillectomy History of laparoscopic appendectomy H/O colonoscopy Family History Father History of heart surgery High cholesterol Cardiovascular disease Mother Cardiovascular disease Mental health disorder Maternal Grandfather Diabetes mellitus Cancer Maternal Grandmother Cancer Paternal Grandmother Cancer Sister Asthma Paternal Grandfather Cardiovascular disease Cancer Social History Housing: House Alcohol intake: current Alcohol intake frequency: a few times a month Patient Tobacco Use Status: Never used Tobacco e-Cigarette/Vaping Use: Never Used Advance Directives Date on File: 09/15/20 Current occupational status: retired Current occupation: rt handed Cognitive needs: No Hearing needs: No Vision needs: Yes Review of Systems Const All systems reviewed & are unremarkable except as noted in HPI and below Physical Exam Vital Signs: BMI result Body Mass Index 24.2 Extrem Other: On inspection, there is no visible deformity of the patient's left shoulder No erythema, edema, ecchymosis noted No lacerations, abrasions, open areas No evidence of infection No tenderness to palpation about the posterior aspect of the shoulder No tenderness palpation of the greater tuberosity of the humerus Patient is able to forward flex the left shoulder to 90 degrees without difficulty Patient is able to externally rotate the left shoulder to approximately 50 degrees, limited due to pain and stiffness Range of motion of the elbow, wrist, hand full and intact Distal sensation intact Capillary refill brisk Results Reviewed Results Reviewed: X-rays obtained in the office today and independently reviewed by me, Eric Avendano PA-C, demonstrate healed fracture of the greater tuberosity of the left proximal humerus Assessment & Plan Assessment & Plan (1) Greater tuberosity of humerus fracture: Code(s): S42.253A - Displaced fracture of greater tuberosity of unspecified humerus, initial encounter for closed fracture Category: Medical Plan 1. Greater tuberosity fracture of left humerus Date of injury 03/03/2024 Patient is educated about this injury and the typical recovery course At this time, patient is educated that she can begin with more strenuous range of motion and strengthening of the left shoulder and can gradually return to normal activity Patient should continue working with PT Discontinue use of the sling Patient is amenable to this plan Patient will f/u as needed with any acute concerns Coding Level of Care Code Global (21276) Diagnoses Greater tuberosity of humerus fracture S42.253A
[2024-06-24 09:51] VITALS: BMI 24.2
== END 2024-06-24 10:10 | disposition home or self-care (01) ==
LOC: HO.HOS 09:44
PROVIDERS: PCP Nurse Practitioner Family
DX: S42.252A Displaced fracture of greater tuberosity of left humerus, initial encounter for closed fracture (principal)
CPT/HCPCS: 99213

== ENCOUNTER → 2024-06-24 09:52 | Outpatient (BNV) | payer MEDICARE, SELFPAY | PROVIDERS: Visit Provider Radiology Diagnostic Radiology | DX: S42.255D Nondisplaced fracture of greater tuberosity of left humerus, subsequent encounter for fracture with routine healing (principal) | CPT/HCPCS: 73030 ==

== ENCOUNTER 2024-06-24 10:16 | Outpatient (REF) | payer MEDICARE, SELFPAY ==
--- NOTE | ~2024-06-24 | XR_ITS ---
EXAMINATION: XR SHOULDER 2 OR MORE VIEWS LEFT HISTORY: M25.512 - Pain in left shoulder COMPARISON: Comparison is made with the prior examination dated 05/13/2024. FINDINGS: Three views of the left shoulder are submitted. Osseous mineralization is normal. There is been further healing of the nondisplaced fracture of the greater tuberosity. The glenohumeral and acromioclavicular joint spaces are preserved. A tiny calcification adjacent to the superior aspect of the humeral head may represent a fracture fragment or a calcification of the rotator cuff. XR/XR shoulder LT min 2V IMPRESSION: Further healing of the nondisplaced fracture of the greater tuberosity. Electronically signed by: Shashi Barba MD 06/24/2024 01:47 PM EDT
== END 2024-06-24 10:17 | disposition home or self-care (01) ==
LOC: HO.HOSX 10:16
DX: M25.512 Pain in left shoulder (principal); S42.252A Displaced fracture of greater tuberosity of left humerus, initial encounter for closed fracture; X58.XXXA Exposure to other specified factors, initial encounter; Y93.9 Activity, unspecified; Y92.9 Unspecified place or not applicable; Y99.9 Unspecified external cause status
CPT/HCPCS: 73030; 99212

== ENCOUNTER 2024-07-09 09:12 | Outpatient (AMB) | payer MEDICARE, SELFPAY ==
--- NOTE | 2024-07-09 09:28 | MHC.PC.OV ---
Vital Signs 07/09/24 09:33 07/09/24 10:44 07/09/24 10:46 07/09/24 10:46 Height 5 ft 6 in Weight 154 lb 2 oz BMI 24.9 BP 98/66 100/70 118/72 120/78 Blood Pressure Location Lt brachial Rt brachial Rt brachial Rt brachial Position Sitting Supine Sitting Standing Respiration 12 Pulse 60 55 65 67 Pulse Source Pulse Oximeter Pulse Oximeter Pulse Oximeter Pulse Oximeter Temp 97.5 F Temp Source Oral Pulse Oximetry (%) 99 98 98 98 Oxygen Delivery Method Room Air Room Air Room Air Room Air Intake Visit Reasons: ROUTINE FU Intake Note: Routine follow up [employer] Required: No Allergies No Known Drug Allergies Allergy (Unknown, Verified 07/09/24 09:29) UNKNOWN Medication List - Last Reconciled 07/09/24 by Karma Ornelas, [facility]- alendronate 70 mg PO QWEEK clobetasol 0.05% 1 appl topical BID escitalopram oxalate 15 mg orally; 90 days esketamine (Spravato) inhale 3 sprays into each nostril 2 times per week, with 5-minute rest between use of each device intranasal Tobacco use date assessed: 07/09/24 Fall risk assessment: No Falls in past year Last assessed Fall Risk: 07/09/24 Dental Screening Dental Screen Date: 07/09/24 Did you have a dental visit in the last 12 months?: Yes Did you have a dental problem in the last 6 months where you did not have access to dental care?: No Was dental information given to patient?: Patient has dentist HPI HPI Comments History of Present Illness Details 68 y/o F with LUÍS, MDD, ADHD, HLD, VIt D def, Mitral Regurg, urinary incont, cataracts, anemia, lumbar DJD, lichen sclerosis , osteoporosis, elevated intact PTH, JEFF on CPAP s/p appendectomy, oopherectomy Health Maintenance: See scanned preventative medicine assessment with personalized health plan and screening schedule. Tdap 2016, COVID booster, Flu 2023, Shinges UTD, PCV Mammo 10/11/23 Colon 08/2020 Dr Whaley, 5 year repeat (2025) DEXA 05/2023 Echo 01/2023 EF 62% The left atrium is mildly dilated, tace mitral valve regurgitation, mild tricuspid valve regurgitation, no significant change compared to prior study dated: 11/24/2016. AAA screen: NA EKG: UTD in last 1 year Specialists/ [place] of Care: Armando & counselor Derm - The patient is a 68-year-old female presenting with routine chronic condition management. - She has obstructive sleep apnea, using CPAP for management. Usage rates are compliant, with an average usage of 5 hours 24 minutes per night. See details of compliance review below. She is getting a rash on her nose. - Initiated Spravato (esketamine) therapy for persistent depressive disorder with some modest improvements in mood and energy levels. Treatment began on June [address] Forrester at [facility]. - Experiences dizziness, exacerbated by decreased frequency in taking salt tablets. Improved when taking and hydrating well. - Actively participating in a urinary incontinence study using an implant, with no major improvement reported. -continued need for physical therapy to restore full range of motion L arm Was unable to get MRI of spine d/t implant. Does not offer any new neuro complaints. Chewing MVI causing GI pain and nausea. Exam Awake alert NAD PERRLA, EOMI Neck FROM RRR LS CTAB, full inspiration w/o chest abnormality Abd soft nontender Neuro exam benign No edema BLE Mood and affect appropriate Results Labs10/08/23 show a normal glucose, normal renal function, normal electrolytes, normal phosphorus normal ferritin, normal iron profile, normal LFTs, slightly elevated intact parathyroid 97, serum protein electrophoresis normal, TSH normal, vitamin-D normal CPAP compliance Report: Started June 09 2024. [facility] 30 days: 5 hours 24 minutes Average AHI 3.05 80% days used 90 days 5 hours 26 minutes AHI 4.14 I discussed with the patient the progress and management of sleep apnea treated with CPAP. She reports effective usage and compliance. I advised investigating mask adjustments or applying bandages to bridge of nose address skin irritation. I reviewed her initiation of Spravato therapy, noting the patient?s modest mood improvement, and acknowledged she feels like a pioneer with limited peer experience available for comparison. The importance of continued therapy and possible future adjustments was emphasized. We talked about her participation in the urinary incontinence study and the marginal improvement she noted, recognizing her contribution to advancing medical science. The patient expressed concern about dizziness possibly linked to her infrequent salt tablet intake and the side effect of escitalopram on sodium levels. Suggestions include staying consistent with salt intake and monitoring effects. A discussion took place regarding her healed rib fracture, emphasizing the need for continued physical therapy to maximize recovery. I addressed dietary and supplement interventions, advising against chewing non-chewable vitamins due to GI upset. Total time spent caring for the patient today was [] minutes. This includes time spent before the visit reviewing the chart, time spent during the visit, and time spent after the visit on documentation, reviewing laboratory results, diagnostic imaging, medications, performing a medically necessary evaluation, counseling on diagnoses, care coordination, ordering appropriate tests, ordering appropriate medications, review of tests performed by other providers, reporting test results with the patient, communication with other healthcare providers. RTO 6 months for sAWv, sooner PRN PFSH Medical History (Updated 07/09/24 @ 18:11 by FIDELINA Montero-EDEL) ADD (attention deficit disorder) Anemia Annual physical exam Anxiety Arthritis Cataract Depression Heart murmur High cholesterol History of mammogram Hyperlipidemia Incontinence Lumbar degenerative disc disease Mitral regurgitation Normal Pap smear Osteoporosis Parasite infection Shingles Wrist fracture, left Surgical History (Updated 07/09/24 @ 07:41 by FIDELINA Montero-EDEL) H/O colonoscopy (~2020) History of laparoscopic appendectomy History of tonsillectomy Hx of appendectomy Family History Father History of heart surgery High cholesterol Cardiovascular disease Mother Cardiovascular disease Mental health disorder Maternal Grandfather Diabetes mellitus Cancer Maternal Grandmother Cancer Paternal Grandmother Cancer Sister Asthma Paternal Grandfather Cardiovascular disease Cancer Social History Housing: House Alcohol intake: current Alcohol intake frequency: a few times a month Patient Tobacco Use Status: Never used Tobacco e-Cigarette/Vaping Use: Never Used Advance Directives Date on File: 09/15/20 Current occupational status: retired Current occupation: rt handed Cognitive needs: No Hearing needs: No Vision needs: Yes Questionnaire PHQ-9 Over the last 2 weeks, how often have you been bothered by any of the following problems? 1. Little interest or pleasure in doing things: several days 2. Feeling down, depressed, or hopeless: several days 3. Trouble falling or staying asleep, or sleeping too much: several days 4. Feeling tired or having little energy: several days 5. Poor appetite or overeating: more than half the days 6. Feeling bad about yourself - or that you are a failure or have let yourself or your family down: not at all 7. Trouble concentrating on things, such as reading the newspaper or watching television: not at all 8. Moving or speaking so slowly that other people could have noticed. Or the opposite - being so fidgety or restless that you have been moving around a lot more than usual: not at all 9. Thoughts that you would be better off or of hurting yourself in some way: not at all Total score: 6 Depression Screening Interpretation: Positive Depression Screening Follow-up: Existing condition and In treatment Depression Screening Done: Yes 53756 - PHQ-9 Billing: Yes Source: Developed by Drs. Shashi Gomez, Dorie Beyer, Reyes Healy and colleagues, with an educational wali from [employer]. Thrive Questionnaire Date Thrive assessed: 07/09/24 I am a: Patient What is your living situation today?: I have a steady place to live Within the past 12 months, did the food you bought not last and you didn't have the money to get more?: Never true Within the past 12 months, did you worry whether your food would run out before you got money to buy more?: Never true Do you have trouble paying for medicines?: No Do you have trouble getting transportation to medical appointments?: No Do you have trouble paying your heating and electricity bill?: No Do you have trouble taking care of your child, family member or friend?: No Do you have trouble with day-to-day activities such as bathing, preparing meals, shopping, managing finances, etc.?: No Are you currently unemployed and looking for a job?: No Are you interested in more education?: No Please select the resources that you would like help with: None Currently or been in a relationship where the following occur: No concerns reported THRIVE Score: 0 AUDIT C Alcohol Use Questionnaire (AUDIT-C) 1. How often do you have a drink containing alcohol?: Monthly or less 2. How many drinks containing alcohol do you have on a typical day when you are drinking?: 1 or 2 3. How often do you have six or more drinks on one occasion?: Never Total Score: 1 Score Reviewed/Action Taken: Yes LUÍS-7 AMB Questionnaire LUÍS-7 Date LUÍS - 7 assessed: 07/09/24 Feeling nervous, anxious, or on edge: 1 = Several days Not being able to stop or control worryin = Several days Worrying too much about different things: 2 = More than half the days Trouble relaxin = Several days Being so restless that it is hard to sit still: 0 = Not at all Becoming easily annoyed or irritable: 0 = Not at all Feeling afraid as if something awful might happen: 0 = Not at all Total LUÍS-7 score (0-4 normal; 5-9 mild; 10-14 moderate; 15-21 severe): 5 Source: Developed by Drs. Shashi Gomez, Dorie Beyer, Reyes Healy and colleagues, with an educational wali from [employer]. LUÍS-7 Assessment Billing LUÍS-7 Assessment Tool: LUÍS-7 Assessment 53025 Physical exam (Primary Care) Vital Signs: Last Vital Signs Temp 97.5 F 07/09/24 09:33 Pulse 67 07/09/24 10:46 Resp 12 07/09/24 09:33 BP 120/78 07/09/24 10:46 Pulse Ox 98 07/09/24 10:46 Oxygen Delivery Method Room Air 07/09/24 10:46 BMI result Body Mass Index 24.9 Tobacco/Smoking Status: Tobacco use Status Tobacco use date assessed 07/09/24 07/09/24 09:31 Patient Tobacco Use Status Never used Tobacco 07/09/24 09:31 e-Cigarette/Vaping Use Never Used 07/09/24 09:31 PHQ-9: PHQ-9 Score PHQ-9: Total score 6 07/09/24 10:44 Depression Screening Interpretation: Positive Depression Screening Follow-up: Existing condition and In treatment Thrive Assessment: Date of Thrive Assessment Date Thrive assessed 07/09/24 07/09/24 09:31 Currently or been in a relationship where the following occur: No concerns reported Office Procedures Office Procedure Misc Details: CPT code 68918? Office Procedure Billing Code: AMB Procedure Billing Code (CPT code 93523 ) Coding Level of Care Code Est Pt Level 5 (41628) Complex EM visit Add On G2211 Diagnoses Anxiety F41.9 Major depressive disorder, recurrent episode with anxious distress F33.9 Orthostasis I95.1 Severe obstructive sleep apnea-hypopnea syndrome G47.33 Continuous leakage of urine N39.45 Urinary Incontinence type: continuous leakage Vitamin D deficiency E55.9 CPT Codes Office Procedure - Office Procedure Billing Code: AMB Procedure Billing Code ([id number]) Additional Codes LUÍS-7 Assessment Billing - LUÍS-7 Assessment Tool: LUÍS-7 Assessment 06522 ([id number]) PHQ-9 - 23357 - PHQ-9 Billing: Yes ([id number]) Assessment & Plan Assessment & Plan (1) Anxiety: Code(s): F41.9 - Anxiety disorder, unspecified Category: Medical (2) Major depressive disorder, recurrent episode with anxious distress: Code(s): F33.9 - Major depressive disorder, recurrent, unspecified Category: Medical (3) Orthostasis: Code(s): I95.1 - Orthostatic hypotension Category: Medical (4) Severe obstructive sleep apnea-hypopnea syndrome: Comment: sleep study 04/2024 Code(s): G47.33 - Obstructive sleep apnea (adult) (pediatric) Category: Medical (5) Urinary incontinence: Code(s): R32 - Unspecified urinary incontinence Category: Medical Qualifiers: Urinary Incontinence type: continuous leakage Qualified Code(s): N39.45 - Continuous leakage (6) Vitamin D deficiency: Code(s): E55.9 - Vitamin D deficiency, unspecified Category: Medical Plan . Orders: Orders CPAP compliance review Today Patient Instructions: - Continue using CPAP as advised and report any persistent mask issues. - Remain consistent with salt tablet intake and monitor dizziness. - Follow up on Spravato therapy progress with your prescribing provider. - Maintain participation in the urinary incontinence study and keep track of symptoms. - Resume physical therapy to regain motion from past rib fracture. - Use vitamins as instructed without chewing; explore chewable options if needed.
[2024-07-09 09:33] VITALS: BP 98/66; PULSE 60; RESP 12; TEMP 36.4; O2SAT 99; BMI 24.9
--- OUTSIDE RECORDS SUMMARY | 2024-07-09 09:50 | XMS_ITS | Clinical Summary ---
Author Organization [facility] [address] [place] [address] [place] [address] Phone Care Team Providers Care [employer] Name Role Phone [employer] Laboy Primary Care Provider [phone] Allergies No known active allergies Medications escitalopram [...] 04/11/2024 10:40 AM EST Office Visit Endocrinology [address] [phone] Ciarra Pyle PA Age related osteoporosis, unspecified [...] 10:20 AM EST Office Visit Endocrinology - [place] [address] [place] [address] Ciarra Pyle PA [address] [place] [address] Health Maintenance Due Date Last Done Comments [...] Zoster Vaccines Completed 09/29/2020, 02/12/2020 RSV Immunization Adult Patients Completed 04/12/2023 COVID-19 Vaccine Completed 12/28/2023, , [...] age to complete this topic Meningococcal B Vaccine Aged Out No l onger eligible based on patient's age to complete [...] LAB CHEMISTRY METHOD 04/22/2024 11:25 AM EST [facility] Calcium, 24H Urine 276 50 - 400 mg/24 hr LAB CHEMISTRY METHOD 04/22/2024 11:25 AM EST [facility] Urine Volume 2,300 mL LAB CHEMISTRY METHOD 04/22/2024 11:25 AM EST [facility] Collection Interval, Ur 24 hr LAB CHEMISTRY METHOD 04/22/2024 11:25 AM EST [facility] Urine Urine specimen from urethra / Unknown Non-blood Collection / Unknown 04/22/2024 8:05 AM EST 04/22/2024 8:05 AM EST us Ciarra MONTOYA LAB URINE ORDERABLES Final Resul t Performing Organization Address [facility] Co de Phone Number [facility] [address] [place] [address], [place] [phone] * Vitamin D 25 hydroxy (04/11/2024 11:44 AM EST) Vit D, 25-Hydroxy 30.9 30.0 - 80.0 ng/mL LAB CHEMISTRY METHOD 04/11/2024 2:34 PM EST [facility] Blood Venous blood specimen / Unknown Venipuncture / Unknown 04/11/2024 11:44 AM EST 04/11/2024 11:44 AM EST us Ciarra MONTOYA LAB BLOOD ORDERABLES Final Resul t Performing Organization Address [facility] de Phone Number [facility] [address] [place] [address], [place] [phone] * (ABNORMAL) Parathyroid hormone intact (04/11/2024 11:44 AM EST) PTH 150.1(H) 18.5 - 88.0 pcg/mL LAB CHEMISTRY METHOD 04/11/2024 2:38 PM EST [facility] Blood Venous blood specimen / Unknown Venipuncture / Unknown 04/11/2024 11:44 AM EST 04/11/2024 11:44 AM EST us Ciarra MONTOYA LAB BLOOD ORDERABLES Final Resul t Performing Organization Address City/[facility]/ZIP Co de Phone Number [facility] [address] [place] [address], [place] [phone] * Basic metabolic panel (04/11/2024 11:44 AM EST) Sodium 139 133 - 145 mmol/L LAB CHEMISTRY METHOD 04/11/2024 2:24 PM [facility] Potassium 4.2 3.5 - 5.5 mmol/L LAB CHEMISTRY METHOD 04/11/2024 2:24 PM [facility] Chloride 108 96 - 110 mmol/L LAB CHEMISTRY METHOD 04/11/2024 2:24 PM [facility] CO2 26 21 - 32 mmol/L LAB CHEMISTRY METHOD 04/11/2024 2:24 PM [facility] Anion Gap 5 3 - 11 LAB CHEMISTRY METHOD 04/11/2024 2:24 PM [facility] Glucose 87 70 - 100 mg/dL LAB CHEMISTRY METHOD 04/11/2024 2:24 PM [facility] BUN 16 5 - 25 mg/dL LAB CHEMISTRY METHOD 04/11/2024 2:24 PM [facility] Creatinine 0.82 0.50 - 1.10 mg/dL LAB CHEMISTRY METHOD 04/11/2024 2:24 PM [facility] eGFR 77 >=60 mL/min/1. 73m2 LAB CHEMISTRY METHOD 04/11/2024 2:24 PM [facility] Comment:Calculation based on the??Chronic Kidney Disease Epidemiology Collaboration (CKD-EPI) equation refit??without adjustment for race. BUN/Creatinine Ratio 19.5 LAB CHEMISTRY METHOD 04/11/2024 2:24 PM [facility] Calcium 9.6 8.5 - 10.5 mg/dL LAB CHEMISTRY METHOD 04/11/2024 2:24 PM [facility] Blood Venous blood specimen / Unknown Venipuncture / Unknown 04/11/2024 11:44 AM EST 04/11/2024 11:44 AM EST us Ciarra MONTOYA LAB BLOOD ORDERABLES Final Resul t [facility] [address] [place] [address], [place] [phone] from Last 3 Months Insurance MEDICARE [facility] Care Teams [employer] Relationship Specialty Start Date End Date Karma Ornelas FNP [address] [place] [address] [place] [phone] PCP - General Nurse Practitioner 04/16/24
[2024-07-09 10:44] VITALS: BP 100/70; PULSE 55; O2SAT 98
[2024-07-09 10:46] VITALS: BP 118/72; BP 120/78; PULSE 65; PULSE 67; O2SAT 98
== END 2024-07-09 10:23 | disposition home or self-care (01) ==
LOC: HO.HMCFM 09:13
PROVIDERS: PCP Nurse Practitioner Family; Visit Provider Nurse Practitioner Family
DX: I95.1 Orthostatic hypotension (principal); F41.9 Anxiety disorder, unspecified; F33.9 Major depressive disorder, recurrent, unspecified; G47.33 Obstructive sleep apnea (adult) (pediatric); N39.45 Continuous leakage; E55.9 Vitamin D deficiency, unspecified

== ENCOUNTER → 2024-07-09 09:12 | Outpatient (BNVA) | payer MEDICARE, SELFPAY | PROVIDERS: PCP Nurse Practitioner Family; Visit Provider Nurse Practitioner Family | DX: F41.9 Anxiety disorder, unspecified (principal); F33.9 Major depressive disorder, recurrent, unspecified; I95.1 Orthostatic hypotension; G47.33 Obstructive sleep apnea (adult) (pediatric); N39.45 Continuous leakage; E55.9 Vitamin D deficiency, unspecified | CPT/HCPCS: 96127; 99212 ==

== ENCOUNTER 2024-08-15 09:03 | Outpatient (RCR) | payer OTHER, MEDICARE, SELFPAY ==
--- NOTE | 2024-07-15 10:34 | MHC.PT.EP ---
[facility] [place] Office [place] Office [place] Office [address] [phone] F: [phone] F: [phone] F: [phone] F: [phone] Physical Therapy Plan of Care Date of Evaluation: 07/15/24 Date of Surgery: NA Diagnosis: LEFT HUMERAL FRACTURE (KP) Assessment: FRANNY IS A PLEASANT 68 YO FEMALE WHO RETURNS TO PT FOR HUMERAL FRACTURE REHAB. SHE WAS PREVIOUSLY IN PT 03/25 - 04/26 WITH GOOD RESULTS AT THAT TIME. SHE REPORTS SHE H SHE HAS NOT BEEN PERFORMING HEP, REPORTS DIFFICULTY WITH ELEVATION ARM, DIFFICULTY WITH YOGA POSES (DOWNWARD DOG) AND DIFFICULTY WITH WITH ARM BEHIND BACK AND OVERHEAD. FEELS LIKE SHE HAS IMPROVED SINCE DC FROM PT, BUT IS NOT AT THE LEVEL OF FUNCTION SHE WOULD LIKE TO BE AT. UPON EXAM SHE DEMONSTRATES IMPAIRMENTS OF SLIGHTLY DECREASED ROM AND STRENGTH OF GH AND SCAP/THOR REGIONS, ALTERED POSTURE AND POSITIONING, INCREASED TISSUE TENSION AND INCREASED PAIN. FUNCTIONAL LIMITATIONS INCLUDE DECREASED TOLERANCE TO HOMEMAKING AND SELF CARE ACTIVITIES, DECREASED ABILITY TO PERFORM LIFTING, REACHING AND CARRYING. SHE REPORTS DECREASED PARTICIPATION IN FITNESS AND RECREATIONAL ACTIVITIES. Frequency and Duration: The patient will be seen 1-2 WEEKS X 4 WEEKS Short Term Goals: REVIEW AND PROGRESS PREVIOUS HEP Decorating Supervisor Goals: INDEPENDENT HEP SHOULDER ELEVATION ON LEFT TO A MINIMUM OF [address] OBJECT ON SHOULDER HEIGHT SHELF TO RETURN TO YOGA CLASSES WITH MODIFICATIONS NEEDED Treatment Plan: Modalities to reduce pain, spasms and effusion. Manual therapy to restore motion and function. Therapeutic exercise to improve strength and flexibility. Neuromuscular re-education for posture and balance. Therapeutic activities to return to functional activities of daily living. Electronically signed by: AMRIT BELTRAN PT DPT Please sign and return to therapist. Thank you for your referral.
== END 2024-09-18 08:57 | disposition home or self-care (01) ==
LOC: HO.PT 09:03
PROVIDERS: PCP Nurse Practitioner Family
DX: S42.253A Displaced fracture of greater tuberosity of unspecified humerus, initial encounter for closed fracture (principal)
CPT/HCPCS: 97110; 97161; 97535

== ENCOUNTER 2024-08-19 13:13 | Outpatient (AMB) | payer MEDICARE, SELFPAY ==
--- NOTE | 2024-08-19 13:23 | A.OFFPSYCH_ITS ---
Intake Intake Visit Reasons: depression Tube Backer Required: No Allergies No Known Drug Allergies Allergy (Unknown, Verified 07/09/24 09:29) UNKNOWN Medication List - Last Reconciled 08/19/24 by Gayle Gonzalez APRN alendronate 70 mg PO QWEEK clobetasol 0.05% 1 appl topical BID escitalopram oxalate 15 mg orally; 90 days esketamine (Spravato) inhale 3 sprays into each nostril 2 times per week, with 5-minute rest between use of each device intranasal HPI- Psychiatric Chief Complaint: depression HPI Narrative: pt here for follow up re: depression and anxiety. Pt completed one month of esketamine tx with Dr Forrester. They decided to switch her to ketamine and she has had 3 treatments. Pt reports positive results so far. She will continue for another month and reassess with Dr Forrester in mid August. Pt is currently still taking lexapro 15mg daily. Pt finished PT for shoulder and has almost full ROM. She is using CPAP regularly. she is sleeping 7.5hrs a night. 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 PHQ9=7.5 and GAD7=4. She denies SI or HI. We reviewed her past meds trials: effexor, zoloft, wellbutrin, adderall and ritalin . Past Psychiatric History: no IPLOC, no PHP or IOP; outpatient therapy with Leslie FARRIS in [place] for years; long history of anxiety and dysthymia, recent dx of ADHD Subjective Subjective Subjective Medication Compliance: Yes Side effects from medications: No Review of Systems Medical Review of Systems: unchanged Mental Status Exam Mental Status Exam Patient Appearance: Well Grooomed Patient Orientation: Person, Place, Time and Situation Level of Consciousness: Awake, Appropriate and Alert Patient Behavior: Appropriate, Cooperative and Good Eye Contact Mood Description: Happy, Appropriate, Cheerful and Sad Affect Description: Happy, Appropriate, Cheerful and Sad Patient Cognition Impaired: No Ability to Follow Directions: Good Speech Pattern: Clear, Appropriate and Coherent Memory Description: Intact Hallucinations: None Delusions: Not Present Thought Process: Intact and Goal Oriented Thought Content: positive for Intact and positive for Goal Oriented Judgement: Good Assessment and Plan Assessment & Plan (1) Major depressive disorder, recurrent episode with anxious distress: Status: Acute Code(s): F33.9 - Major depressive disorder, recurrent, unspecified (2) ADHD (attention deficit hyperactivity disorder), inattentive type: Status: Acute Code(s): F90.0 - Attention-deficit hyperactivity disorder, predominantly inattentive type Plan continue lexapro 15mg daily continue with ketamine treatments consider remeron trial of needed in future Counseling and coordination of Care Pt. Self Management counseling: Maintenance-social rhythm, Mod caffeine/ETOH intake, Sleep hygiene, Behavior activation, General coping skills, Greif counseling and Problem solving Medication management counseling: Effectiveness, Side effects, Dosing range, Duration, Drug interaction and Adherence Diagnosis and Prognosis Counseling: Accuracy of diagnosis, Prognosis over time, Impact of diagnosis on life functions, Problematic behaviors secondary to diagnosis and Adequacy of current interventions Details: I spent 40 minutes reviewing the record, seeing the patient and documenting in the medical record. Counseling provided to the patient/caregiver as outlined below. Addressed patient/caregiver concerns regarding current medication regime including effective adherence. Addressed patient/caregiver concerns regarding diagnosis and prognosis including accuracy of diagnosis, prognosis over time, impact of diagnosis. Addressed patient/caregiver concerns regarding impact of recent stressors. PENDING SALE TO [facility] Medical History (Updated 07/09/24 @ 18:11 by FIDELINA Montero-EDEL) Shingles ADD (attention deficit disorder) Incontinence Arthritis Heart murmur High cholesterol Anxiety Cataract Annual physical exam Parasite infection Wrist fracture, left Anemia Normal Pap smear Lumbar degenerative disc disease Mitral regurgitation Hyperlipidemia Depression Osteoporosis History of mammogram Surgical History (Updated 07/09/24 @ 07:41 by FIDELINA Montero-EDEL) Hx of appendectomy History of tonsillectomy History of laparoscopic appendectomy H/O colonoscopy (~2020) Family History Father History of heart surgery High cholesterol Cardiovascular disease Mother Cardiovascular disease Mental health disorder Maternal Grandfather Diabetes mellitus Cancer Maternal Grandmother Cancer Paternal Grandmother Cancer Sister Asthma Paternal Grandfather Cardiovascular disease Cancer Social History Housing: House Alcohol intake: current Alcohol intake frequency: a few times a month Patient Tobacco Use Status: Never used Tobacco e-Cigarette/Vaping Use: Never Used Advance Directives Date on File: 09/15/20 Current occupational status: retired Current occupation: rt handed Cognitive needs: No Hearing needs: No Vision needs: Yes Social History: lives alone, dating, 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
--- OUTSIDE RECORDS SUMMARY | 2024-08-19 14:17 | XMS_ITS | Patient Health Record ---
Author Organization [facility] Address [address] [place] [address] Care Team Providers Care Blood Bank Order Control Clerk Name Role Phone Nickie Finn MD Primary Care Provider Shashi Nguyen Unavailable [phone] Reason For Referral No Information Medications Medication SIG (Take, Route, Frequency, Duration) Notes Start Date End Date Status Calcium 500 MG 1 tablet with meals Orally Twice a day for 30 day(s) Active Multivitamin - 1 tablet Orally Once a day for 30 day(s) Active Escitalopram Oxalate 10 MG TAKE 1 AND 1/ 2 TABLETS BY MOUTH DAILY WITH FOOD Oral for 30 Active Immunizations Vaccine Route Administration Date Status Comme nts Influenza Unknown 01/01/2020 Administered Social History Alcohol Screen Question Answer Notes Did you [...] Never (0 point) Points 2 Interpretation Negative Section Notes: Nonsmoker; no sig alcohol Nonsmoker; no sig alcohol Nonsmoker; no sig alcohol Nonsmoker; no sig alcohol Problems Problem Type SNOMED Code ICD Code Onset Dates Problem Status W/U Status Risk Notes Problem 036296073 Encounter for screening for malignant neoplasm of colon (Z12.11) Active confirmed Problem 358129728 History of adenomatous polyp of colon (Z86.010) Active confirmed Problem 251383916 Change in bowel habits (R19.4) Active confirmed Problem Diverticular disease of colon (537014792) Diverticulosis of large intestine without perforation or abscess without bleeding (K57.30) Active confirmed Problem Screening for malignant neoplasm of rectum (602961806) Encounter for screening for malignant neoplasm of rectum (Z12.12) Active confirmed Problem 50884438 Preprocedural examination (Z01.818) Active confirmed Problem 43017298 Diarrhea of infectious origin (A09) Active confirmed Problem 64918406 Diarrhea, unspecified type (R19.7) Active confirmed Plan Of Treatment Pending Test Test Name Order Date CHEM [...] Date MEDICARE OF [place] [address] [facility] [place] [address] [phone] [id number] FRANNY FRANCISCO Self - patient is the insured [employer] ATT[employer] CLAIMS [address] [place] [address] [id number] FRANNY FRANCISCO Self - patient is the insured Medical (General) History Medical History History ICD Code Tubular adenomas removed in 2006--neg colonoscopy in 2009 except for diverticulosis and internal hemorrhoids ADD/Anxiety Denies DC,DM,CVA,Lung disease,renal dise ase Neg. colonoscopy in 11/2015 [...]
--- OUTSIDE RECORDS SUMMARY | 2024-08-19 14:17 | XMS_ITS | Clinical Summary ---
Author Organization [facility] [address] [place] [address] Address [address] [place] [address] Phone Care Team Providers Care Toddler Nanny Name Role Phone FangPushpaKarma Laboy Primary Care Provider Allergies No known active allergies Medications escitalopram [...] Date Diagnosed Date Age related osteoporosis 04/11/2024 Immunizations Name Administration Dates Next Due Moderna [...] 10:20 AM EST Office Visit Endocrinology - [place] [address] [place] [address] Ciarra Pyle PA [address] [place] [address] Health Maintenance Due Date Last Done Comments Breast Cancer Screening 1955 Pneumococcal Vaccine: 50+ Years (1 of 1 - PCV) 10/30/2003 Colorectal Cancer Screening: Colonoscopy 10/26/2023 Depression Screening 10/26/2023 Falls Risk Assessment 10/26/2023 Hepatitis C Screening 10/26/2023 Medicare Annual Wellness Visit 10/26/2023 Osteoporosis Screening (Bone Density Screening) 10/26/2023 Social Influencers of Health Screening 10/26/2023 COVID-19 Vaccine ( season) 2024 12/28/2023, 12/22/2022, 01/04/2022, Additional history exists DTaP,Tdap,and Td Vaccines (2 - Td or Tdap) 10/10/2025 10/11/2015 Zoster Vaccines Completed 09/29/2020, 02/12/2020 RSV Immunization Adult Patients Completed 04/12/2023 Influenza Vaccine Completed 12/28/2023, , 01/04/2022, Additional [...] on patient's age to complete this topic Insurance MEDICARE [facility] Care Teams Toddler Nanny Relationship Specialty Start Date End Date Karma Ornelas FNP [address] [place] [address] [place] [address] PCP - General Nurse Practitioner 04/16/24
== END 2024-08-19 13:57 | disposition home or self-care (01) ==
LOC: HO.HOP 13:14
PROVIDERS: PCP Nurse Practitioner Family; Visit Provider Clinical Nurse Specialist Psychiatric/Mental Health
DX: F33.9 Major depressive disorder, recurrent, unspecified (principal); F90.0 Attention-deficit hyperactivity disorder, predominantly inattentive type
CPT/HCPCS: 99214

== ENCOUNTER → 2024-08-19 13:13 | Outpatient (BNVA) | payer MEDICARE, SELFPAY | PROVIDERS: PCP Nurse Practitioner Family; Visit Provider Clinical Nurse Specialist Psychiatric/Mental Health | DX: F33.9 Major depressive disorder, recurrent, unspecified (principal); F90.0 Attention-deficit hyperactivity disorder, predominantly inattentive type | CPT/HCPCS: 99212 ==

== ENCOUNTER 2024-10-20 09:35 | Outpatient (AMB) | payer MEDICARE, SELFPAY ==
--- NOTE | 2024-10-20 09:40 | MHC.OFFVISPS ---
Intake Intake Visit Reasons: depression Radiological Health Specialist Required: No Allergies No Known Drug Allergies Allergy (Unknown, Verified 07/09/24 09:29) UNKNOWN Medication List - Last Reconciled 10/20/24 by Gayle Gonzalez APRN alendronate 70 mg PO QWEEK 90 days clobetasol 0.05% 1 appl topical BID escitalopram oxalate 15 mg orally; 90 days esketamine (Spravato) inhale 3 sprays into each nostril 2 times per week, with 5-minute rest between use of each device intranasal prednisone take 3 tab po x 3 days, take 2 tab po x 3 days, 1 tab po x 3 days HPI- Psychiatric Chief Complaint: depression HPI Narrative: pt here for follow up re: depression and anxiety. Pt continues with ketamine treatment; she has stepped down to once a week; she reports continued benefit from the ketamine treatments; Her PHQ9= 4 and GAD7=4. (last visit: PHQ9=7.5 and GAD7=4.) Pt reports positive results so far. Pt is currently still taking lexapro 15mg daily. She denies SI or HI. We reviewed her past meds trials:effexor, zoloft, wellbutrin, adderall and ritalin . Past Psychiatric History: no IPLOC, no PHP or IOP; outpatient therapy with Leslie FARRIS in [place] for years; long history of anxiety and dysthymia, recent dx of ADHD Mental Status Exam Mental Status Exam Patient Appearance: Well Grooomed and Appropriate Patient Orientation: Person, Place, Time and Situation Level of Consciousness: Awake, Appropriate and Alert Patient Behavior: Appropriate, Cooperative and Good Eye Contact Mood Description: Happy, Appropriate and Cheerful Affect Description: Happy, Appropriate and Cheerful Patient Cognition Impaired: No Ability to Follow Directions: Good Speech Pattern: Clear, Appropriate and Coherent Memory Description: Intact Hallucinations: None Delusions: Not Present Thought Process: Intact and Goal Oriented Thought Content: positive for Intact and positive for Goal Oriented Judgement: Good Assessment and Plan Assessment & Plan (1) Major depressive disorder, recurrent episode with anxious distress: Status: Acute Code(s): F33.9 - Major depressive disorder, recurrent, unspecified (2) ADHD (attention deficit hyperactivity disorder), inattentive type: Status: Acute Code(s): F90.0 - Attention-deficit hyperactivity disorder, predominantly inattentive type Plan continue lexapro 15mg daily continue with ketamine treatments Medications: Refilled escitalopram oxalate 15 mg orally; 135 tabs 1RF 90 days Counseling and coordination of Care Pt. Self Management counseling: Maintenance-social rhythm, Mod caffeine/ETOH intake, Sleep hygiene, Behavior activation, General coping skills, Greif counseling and Problem solving Medication management counseling: Effectiveness, Side effects, Dosing range, Duration, Drug interaction and Adherence Diagnosis and Prognosis Counseling: Accuracy of diagnosis, Prognosis over time, Impact of diagnosis on life functions, Problematic behaviors secondary to diagnosis and Adequacy of current interventions Details: I spent 30 minutes reviewing the record, seeing the patient and documenting in the medical record. Counseling provided to the patient/caregiver as outlined below. Addressed patient/caregiver concerns regarding current medication regime including effective adherence. Addressed patient/caregiver concerns regarding diagnosis and prognosis including accuracy of diagnosis, prognosis over time, impact of diagnosis. Addressed patient/caregiver concerns regarding impact of recent stressors. [facility] Medical History (Updated 07/09/24 @ 18:11 by FIDELINA Montero-EDEL) Shingles ADD (attention deficit disorder) Incontinence Arthritis Heart murmur High cholesterol Anxiety Cataract Annual physical exam Parasite infection Wrist fracture, left Anemia Normal Pap smear Lumbar degenerative disc disease Mitral regurgitation Hyperlipidemia Depression Osteoporosis History of mammogram Surgical History (Updated 07/09/24 @ 07:41 by DACIA Montero) Hx of appendectomy History of tonsillectomy History of laparoscopic appendectomy H/O colonoscopy (~2020) Family History Father History of heart surgery High cholesterol Cardiovascular disease Mother Cardiovascular disease Mental health disorder Maternal Grandfather Diabetes mellitus Cancer Maternal Grandmother Cancer Paternal Grandmother Cancer Sister Asthma Paternal Grandfather Cardiovascular disease Cancer Social History Housing: House Alcohol intake: current Alcohol intake frequency: a few times a month Patient Tobacco Use Status: Never used Tobacco e-Cigarette/Vaping Use: Never Used Advance Directives Date on File: 09/15/20 Current occupational status: retired Current occupation: rt handed Cognitive needs: No Hearing needs: No Vision needs: Yes Social History: lives alone, dating, 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
--- OUTSIDE RECORDS SUMMARY | 2024-10-20 10:10 | XMS_ITS | Clinical Summary ---
Author Organization [facility] [address] [place] [address] Address [address] [place] [address] Phone Care Team Providers Care Acid Tender Name Role Phone FangPushpaKarma Laboy Primary Care [...] 73 10/08/2023 1:37 PM EDT Temperature 36.1 C (97 F) 04/11/2024 10:48 AM EST Respiratory Rate - - Oxygen [...] 10:20 AM EST Office Visit Endocrinology - [place] [address] [place] [address] Ciarra Pyle PA [address] [place] [address] Health Maintenance Due Date Last Done Comments Breast Cancer Screening 1955 Pneumococcal Vaccine: 50+ Years (1 of 1 - PCV) 10/30/2003 Colorectal Cancer Screening: Colonoscopy 10/26/2023 Falls Risk Assessment 10/26/2023 Hepatitis C Screening 10/26/2023 Medicare Annual Wellness Visit 10/26/2023 Osteoporosis Screening (Bone Density Screening) 10/26/2023 Social Influencers of Health Screening 10/26/2023 Depression Screening 04/02/2024 COVID-19 Vaccine ( season) 2024 12/28/2023, 12/22/2022, 01/04/2022, Additional history exists Influenza Vaccine (#1) 2024 , 12/22/2022, 01/04/2022, Additional history exists DTaP,Tdap,and Td Vaccines (2 - Td or Tdap) 10/10/2025 10/11/2015 Zoster Vaccines Completed 09/29/2020, 02/12/2020 RSV Immunization Adult Patients Completed 04/12/2023 HIB Vaccines Aged Out No longer eligi [...] age to complete this topic Insurance MEDICARE [facility] Care Teams Acid Tender Relationship Specialty Start Date End Date Karma Ornelas FNP [address] [place] [address] [facility] [place] [address] PCP - General Nurse Practitioner 04/16/24
--- OUTSIDE RECORDS SUMMARY | 2024-10-20 10:10 | XMS_ITS | Patient Health Record ---
Author Organization [facility] Address [address] [place] [address] Care Team Providers Care Shuttle Car Operator Name Role Phone Nickie Finn MD Primary Care Provider Shashi Nguyen Unavailable [phone] Reason For Referral No Information Medications Medication [...] Problem Status W/U Status Risk Notes Problem 641090426 Encounter for screening for malignant neoplasm of colon (Z12.11) Active confirmed Problem 407915743 History of adenomatous polyp of colon (Z86.010) Active confirmed Problem 692623792 Change in bowel habits (R19.4) Active confirmed Problem Diverticular disease of colon (947146176) Diverticulosis of large intestine without perforation or abscess without bleeding (K57.30) Active confirmed Problem Screening for malignant neoplasm of rectum (250155575) Encounter for screening for malignant neoplasm of rectum (Z12.12) Active confirmed Problem 48723896 Preprocedural examination (Z01.818) Active confirmed Problem 64901458 Diarrhea of infectious origin (A09) Active confirmed Problem 63714560 Diarrhea, unspecified type (R19.7) Active confirmed Plan [...] Date MEDICARE OF [place] [address] [facility] [address] [id number] FRANNY FRANCISCO Self - patient is the insured [employer] ATTN CLAIMS [address] [place] [address] [phone] [id number] FRANNY FRANCISCO Self - patient is the insured Medical (General) History Medical History History ICD Code Tubular adenomas removed in 2006--neg colonoscopy in 2009 except for diverticulosis and internal hemorrhoids ADD/Anxiety Denies ND,DM,CVA,Lung disease,renal dise ase Neg. colonoscopy in 11/2015 [...]
== END 2024-10-20 10:16 | disposition home or self-care (01) ==
LOC: HO.HOP 09:35
PROVIDERS: PCP Nurse Practitioner Family; Visit Provider Clinical Nurse Specialist Psychiatric/Mental Health
DX: F33.9 Major depressive disorder, recurrent, unspecified (principal); F90.0 Attention-deficit hyperactivity disorder, predominantly inattentive type
CPT/HCPCS: 99214

== ENCOUNTER → 2024-10-20 09:35 | Outpatient (BNVA) | payer MEDICARE, SELFPAY | PROVIDERS: PCP Nurse Practitioner Family; Visit Provider Clinical Nurse Specialist Psychiatric/Mental Health | DX: F33.9 Major depressive disorder, recurrent, unspecified (principal); F90.0 Attention-deficit hyperactivity disorder, predominantly inattentive type; Z79.899 Other long term (current) drug therapy | CPT/HCPCS: 99212 ==

== ENCOUNTER 2024-11-28 08:37 | Outpatient (AMB) | payer MEDICARE, SELFPAY ==
--- NOTE | 2024-11-28 08:40 | A.OFFPC_ITS ---
Vital Signs 11/28/24 08:45 Height 5 ft 6 in Weight 149 lb BMI 24.0 BP 102/62 Blood Pressure Location Rt brachial Position Sitting Pulse 68 Pulse Source Pulse Oximeter Temp 97.7 F Temp Source Temporal Artery Scan Pulse Oximetry (%) 98 Oxygen Delivery Method Room Air Intake Visit Reasons: discuss hearing loss/referral to a specialist Intake Note: Castillo presents in the office today for hearing loss and a referral to a specialist. Allergies No Known Drug Allergies Allergy (Unknown, Verified 11/28/24 08:47) UNKNOWN Medication List - Last Reconciled 11/28/24 by Karma Ornelas, [facility]- alendronate 70 mg PO QWEEK 90 days clobetasol 0.05% 1 appl topical BID escitalopram oxalate 15 mg orally; 90 days ketamine 140mg QWEEK Tobacco use date assessed: 11/28/24 Dental Screening Dental Screen Date: 11/28/24 Did you have a dental visit in the last 12 months?: Yes Did you have a dental problem in the last 6 months where you did not have access to dental care?: No Was dental information given to patient?: Patient has dentist HPI HPI Comments History of Present Illness Details 69 y/o F with LUÍS, MDD, ADHD, HLD, VIt D def, Mitral Regurg, urinary incont, cataracts, anemia, lumbar DJD, lichen sclerosis , osteoporosis, elevated intact PTH, JEFF on CPAP s/p appendectomy, oopherectomy History of Present Illness - The patient is a 69-year-old female pr esenting with hearing difficulties. - Chronic hearing impairment noticeable in noisy environments and work setting; no pain or tinnitus reported. Present for years, worse since onset. - History of osteoporosis; calcium intak e evaluated concerning daily requirements. - Managed depression; participates in ke tamine therapy with noted improvements. Review of Systems - Auditory: Reports difficulty hearing i n noisy settings, denies ringing or pain. - Musculoskeletal: Reports history of os teoporosis. - Psychological: Reports depression with positive response to treatment. - General: No other systemic concerns re ported or discussed. Physical Exam General: Well developed, well nourished, in no acute distress. Appears stated age. Head: Normocephalic, atraumatic. Eyes: Pupils are equal, round and reactive to light and accommodation. Conjunctivae are clear. Vision grossly normal. Ears: EAC clear, TM intact bilat Psych: Mood and affect appropriate. Discussion Notes During the consultation, I discussed the patient's hearing difficulties, explaining the importance of ascertaining whether an obstruction exists before further testing. I proposed scheduling a hearing exam at the [facility] to assess any need for hearing aids, explaining the community's varying comfort levels with such aids and their increased discretion in modern designs. We reviewed her osteoporosis management, emphasizing the importance of balancing calcium levels to support bone health without overloading her system. I clarified her Vitamin D status, reassuring her that no additional supplementation beyond her daily multivitamin is necessary, given her current levels. Regarding her depression, we discussed her ketamine treatment, noting its benefit in reducing subjective hopelessness and her considerations for potential dosage adjustments. I confirmed that the treatment remains helpful, affirming her positive progress. Follow-up appointments and necessary referrals were organized, ensuring continued monitoring and appropriate care. Patient was given time to ask questions. All questions were answered to their satisfaction. Assessment and Plan 1. Hearing Loss - Schedule hearing exam; consider hearin g aids if necessary. ENT referral PRN 2. Osteoporosis - Maintain calcium 1200 mg daily; avoid excess vitamin D supplementation. 3. Depression - Continue ketamine therapy, adjust freq uency based on response. Patient Instructions - Follow up with [facility] f or a hearing test. - Ensure calcium intake of 1200 mg daily and avoid extra vitamin D. - Keep taking ketamine treatments as dir ected and discuss any changes with your psychiatrist. - RTO as scheduled, sooner PRN Consent Patient was informed and verbally consented to the use of an ambient scribe for clinic note documentation during this visit. Total time spent caring for the patient today was 30 minutes. This includes time spent before the visit reviewing the chart, time spent during the visit, and time spent after the visit on documentation, reviewing laboratory results, diagnostic imaging, medications, performing a medically necessary evaluation, counseling on diagnoses, care coordination, ordering appropriate tests, ordering appropriate medications, review of tests performed by other providers, reporting test results with the patient, communication with other healthcare providers. [facility] Medical History (Updated 11/28/24 @ 09:18 by Karma Ornelas, SECONDARY SPECIAL EDUCATION TEACHER-) ADD (attention deficit disorder) Anemia Annual physical exam Anxiety Arthritis Cataract Depression Heart murmur High cholesterol History of mammogram Hyperlipidemia Incontinence Lumbar degenerative disc disease Mitral regurgitation Normal Pap smear Osteoporosis Parasite infection Shingles Wrist fracture, left Surgical History (Updated 07/09/24 @ 07:41 by Karma Ornelas, [facility]) H/O colonoscopy (~2020) History of laparoscopic appendectomy History of tonsillectomy Hx of appendectomy Family History Father History of heart surgery High cholesterol Cardiovascular disease Mother Cardiovascular disease Mental health disorder Maternal Grandfather Diabetes mellitus Cancer Maternal Grandmother Cancer Paternal Grandmother Cancer Sister Asthma Paternal Grandfather Cardiovascular disease Cancer Social History (Updated 11/28/24 @ 08:45 by Ree Palacios MA) Housing: House Alcohol intake: current Alcohol intake frequency: a few times a month Patient Tobacco Use Status: Never used Tobacco e-Cigarette/Vaping Use: Never Used Second Hand Smoke Exposure: No Use of substances other than those prescribed or required for medical reasons: No Advance Directives Date on File: 09/15/20 Current occupational status: retired Current occupation: rt handed Cognitive needs: No Hearing needs: No Vision needs: Yes Questionnaire Thrive Questionnaire Date Thrive assessed: 07/02/24 I am a: Patient What is your living situation today?: I have a steady place to live Within the past 12 months, did the food you bought not last and you didn't have the money to get more?: Never true Within the past 12 months, did you worry whether your food would run out before you got money to buy more?: Never true Do you have trouble paying for medicines?: No Do you have trouble getting transportation to medical appointments?: No Do you have trouble paying your heating and electricity bill?: No Do you have trouble taking care of your child, family member or friend?: No Do you have trouble with day-to-day activities such as bathing, preparing meals, shopping, managing finances, etc.?: No Are you currently unemployed and looking for a job?: No Are you interested in more education?: No Please select the resources that you would like help with: None Currently or been in a relationship where the following occur: No concerns reported THRIVE Score: 0 LUÍS-7 AMB Questionnaire LUÍS-7 Date LUÍS - 7 assessed: 07/09/24 Source: Developed by Dorie MinayaW. Pepito, Reyes Healy and colleagues, with an educational wali from [employer]. Physical exam (Primary Care) Vital Signs: Last Vital Signs Temp 97.7 F 11/28/24 08:45 Pulse 68 11/28/24 08:45 BP 102/62 11/28/24 08:45 Pulse Ox 98 11/28/24 08:45 Oxygen Delivery Method Room Air 11/28/24 08:45 BMI result Body Mass Index 24.0 Tobacco/Smoking Status: Tobacco use Status Tobacco use date assessed 11/28/24 11/28/24 08:48 Patient Tobacco Use Status Never used Tobacco 11/28/24 08:45 e-Cigarette/Vaping Use Never Used 11/28/24 08:45 Thrive Assessment: Date of Thrive Assessment Date Thrive assessed 07/02/24 11/28/24 08:41 Currently or been in a relationship where the following occur: No concerns reported Coding Level of Care Code Est Pt Level 4 (21740) Complex EM visit Add On G2211 Diagnoses Bilateral hearing loss, unspecified hearing loss type H91.93 Hearing loss type: unspecified Age-related osteoporosis without current pathological fracture M81.0 Osteoporosis type: age-related Presence of current pathological fracture: without current pathological fracture Vitamin D deficiency E55.9 Major depressive disorder, recurrent episode with anxious distress F33.9 Assessment & Plan Assessment & Plan (1) Hearing loss, bilateral: Code(s): H91.93 - Unspecified hearing loss, bilateral Category: Medical Qualifiers: Hearing loss type: unspecified Qualified Code(s): H91.93 - Unspecified hearing loss, bilateral (2) Osteoporosis: Comment: DEXA SD -2.8 05/2018, pt declined treatment Code(s): M81.0 - Age-related osteoporosis without current pathological fracture Category: Medical Qualifiers: Osteoporosis type: age-related Presence of current pathological fracture: without current pathological fracture Qualified Code(s): M81.0 - Age- related osteoporosis without current pathological fracture (3) Vitamin D deficiency: Code(s): E55.9 - Vitamin D deficiency, unspecified Category: Medical (4) Major depressive disorder, recurrent episode with anxious distress: Code(s): F33.9 - Major depressive disorder, recurrent, unspecified Category: Medical Plan . Orders: Referrals Audiology Referral H91.93 - Unspecified hearing loss, bilateral
[2024-11-28 08:45] VITALS: BP 102/62; PULSE 68; TEMP 36.5; O2SAT 98; BMI 24.0
--- OUTSIDE RECORDS SUMMARY | 2024-11-28 09:34 | XMS_ITS | Patient Health Record ---
Author Organization [facility] Address [address] [place] [address] Care Team Providers Care Banquet Bartender Name Role Phone Nickie Finn MD Primary Care Provider Shashi Nguyen Unavailable [phone] Reason For Referral No Information Medications Medication [...] Problem Status W/U Status Risk Notes Problem 815230887 Encounter for screening for malignant neoplasm of colon (Z12.11) Active confirmed Problem 799713905 History of adenomatous polyp of colon (Z86.010) Active confirmed Problem 230427606 Change in bowel habits (R19.4) Active confirmed Problem Diverticular disease of colon (130760477) Diverticulosis of large intestine without perforation or abscess without bleeding (K57.30) Active confirmed Problem Screening for malignant neoplasm of rectum (004254233) Encounter for screening for malignant neoplasm of rectum (Z12.12) Active confirmed Problem 82532143 Preprocedural examination (Z01.818) Active confirmed Problem 05522224 Diarrhea of infectious origin (A09) Active confirmed Problem 92195285 Diarrhea, unspecified type (R19.7) Active confirmed Plan [...] Date MEDICARE OF [place] [address] [facility] [place] [address] [id number] FRANNY FRANCISCO Self - patient is the insured [employer] ATT[employer] CLAIMS [address] [place] [address] [id number] FRANNY FRANCISCO Self - patient is the insured Medical (General) History Medical History History ICD Code Tubular adenomas removed in 2006--neg colonoscopy in 2009 except for diverticulosis and internal hemorrhoids ADD/Anxiety Denies [place],DM,CVA,Lung disease,renal dise ase Neg. colonoscopy in 11/2015 [...]
--- OUTSIDE RECORDS SUMMARY | 2024-11-28 09:34 | XMS_ITS | Clinical Summary ---
Author Organization [facility] [address] [place] [address] Address [address] [place] [address] Phone Care Team Providers Care Concrete Pouring Supervisor Name Role Phone FangPushpaKarma Laboy Primary Care [...] 10:20 AM EST Office Visit Endocrinology - [place] [address] [place] [address] Ciarra Pyle PA [address] [place] [address] Health Maintenance Due Date Last Done Comments [...] age to complete this topic Insurance MEDICARE [facility] Care Teams Concrete Pouring Supervisor Relationship Specialty Start Date End Date Karma Ornelas FNP [address] [place] [address] [facility] [place] [address] PCP - General Nurse Practitioner 04/16/24
== END 2024-11-28 09:04 | disposition home or self-care (01) ==
LOC: HO.HMCFM 08:37
PROVIDERS: PCP Nurse Practitioner Family; Visit Provider Nurse Practitioner Family
DX: H91.93 Unspecified hearing loss, bilateral (principal); M81.0 Age-related osteoporosis without current pathological fracture; E55.9 Vitamin D deficiency, unspecified; F33.9 Major depressive disorder, recurrent, unspecified

== ENCOUNTER → 2024-11-28 08:37 | Outpatient (BNVA) | payer MEDICARE, SELFPAY | PROVIDERS: PCP Nurse Practitioner Family; Visit Provider Nurse Practitioner Family | DX: H91.93 Unspecified hearing loss, bilateral (principal); M81.0 Age-related osteoporosis without current pathological fracture; E55.9 Vitamin D deficiency, unspecified; F33.9 Major depressive disorder, recurrent, unspecified | CPT/HCPCS: 99212 ==

== ENCOUNTER 2025-02-09 08:59 | Outpatient (AMB) | payer MEDICARE, SELFPAY ==
--- NOTE | 2025-02-09 09:14 | A.OFFPSYCH_ITS ---
Intake Intake Visit Reasons: depression Survey Technician Required: No Allergies No Known Drug Allergies Allergy (Unknown, Verified 11/28/24 08:47) UNKNOWN Medication List - Last Reconciled 02/09/25 by Gayle Gonzalez APRN alendronate 70 mg PO QWEEK 90 days clobetasol 0.05% 1 appl topical BID escitalopram oxalate 15 mg orally; 90 days ketamine 140mg QWEEK HPI- Psychiatric Chief Complaint: depression HPI Narrative: pt here for follow up re: depression and anxiety. Pt continues with ketamine treatment approximately 3 x a month. Over the past 6 weeks she has had a negative reaction to side effects; she dissociated more and found it frightening rather than pleasurable; the first mitch it felt negative the effects seemed to last longer and she had troouble walking and the dissociation was extended. The provider reduced her dose by 20mg but she has been feeling more averse about the treatments. Her PHQ9= 5 and GAD7=5. Pt is currently still taking lexapro 15mg daily. She denies SI or HI. We reviewed her past meds trials:effexor, zoloft, wellbutrin, adderall and ritalin . She and her therapist and ketamine provider are exploring why she may be having a negative reaction to the ketamine at this time. Past Psychiatric History: no IPLOC, no PHP or IOP; outpatient therapy with Leslie FARRIS in [place] for years; long history of anxiety and dysthymia, recent dx of ADHD Subjective Subjective Medication Compliance: Yes Side effects from medications: No Review of Systems Medical Review of Systems: unchanged Mental Status Exam Mental Status Exam Patient Appearance: Well Grooomed and Appropriate Patient Orientation: Person, Place, Time and Situation Level of Consciousness: Awake, Appropriate and Alert Patient Behavior: Appropriate, Cooperative and Good Eye Contact Mood Description: Happy, Appropriate and Cheerful Affect Description: Happy, Appropriate and Cheerful Patient Cognition Impaired: No Ability to Follow Directions: Good Speech Pattern: Clear, Appropriate and Coherent Memory Description: Intact Hallucinations: None Delusions: Not Present Thought Process: Intact and Goal Oriented Thought Content: positive for Intact and positive for Goal Oriented Judgement: Good Assessment and Plan Assessment & Plan (1) Major depressive disorder, recurrent episode with anxious distress: Status: Acute Code(s): F33.9 - Major depressive disorder, recurrent, unspecified (2) LUÍS (generalized anxiety disorder): Status: Acute Code(s): F41.1 - Generalized anxiety disorder Plan continue lexapro 15mg daily return in 4 months Medications: Changed From ketamine 140mg QWEEK To ketamine 100 mg Q WEEK 100 mg sublingual Refilled escitalopram oxalate 15 mg orally; 135 tabs 1RF 90 days Counseling and coordination of Care Pt. Self Management counseling: Maintenance-social rhythm, Mod caffeine/ETOH intake, Sleep hygiene, Behavior activation, General coping skills, Catherineif larissa ounseling and Problem solving Medication management counseling: Effectiveness, Side effects, Dosing range, Duration, Drug interaction and Adherence Diagnosis and Prognosis Counseling: Accuracy of diagnosis, Prognosis over time, Impact of diagnosis on life functions, Problematic behaviors secondary to diagnosis and Adequacy of current interventions Details: I spent 30 minutes reviewing the record, seeing the patient and documenting in the medical record. Counseling provided to the patient/caregiver as outlined below. Addressed patient/caregiver concerns regarding current medication regime including effective adherence. Addressed patient/caregiver concerns regarding diagnosis and prognosis including accuracy of diagnosis, prognosis over time, impact of diagnosis. Addressed patient/caregiver concerns regarding impact of recent stressors. [facility] Medical History (Updated 02/09/25 @ 12:55 by Gayle Gonzalez APRN) Shingles ADD (attention deficit disorder) Incontinence Arthritis Heart murmur High cholesterol Anxiety Cataract Annual physical exam Parasite infection Wrist fracture, left Anemia Normal Pap smear Lumbar degenerative disc disease Mitral regurgitation Hyperlipidemia Depression Osteoporosis History of mammogram Surgical History (Updated 07/09/24 @ 07:41 by Karma Ornelas, [facility]) Hx of appendectomy History of tonsillectomy History of laparoscopic appendectomy H/O colonoscopy (~2020) Family History Father History of heart surgery High cholesterol Cardiovascular disease Mother Cardiovascular disease Mental health disorder Maternal Grandfather Diabetes mellitus Cancer Maternal Grandmother Cancer Paternal Grandmother Cancer Sister Asthma Paternal Grandfather Cardiovascular disease Cancer Social History (Updated 11/28/24 @ 08:45 by Ree Palacios MA) Housing: House Alcohol intake: current Alcohol intake frequency: a few times a month Patient Tobacco Use Status: Never used Tobacco e-Cigarette/Vaping Use: Never Used Second Hand Smoke Exposure: No Advance Directives Date on File: 06/16/21 Current occupational status: retired Current occupation: rt handed Cognitive needs: No Hearing needs: No Vision needs: Yes Social History: lives alone, dating, 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
--- OUTSIDE RECORDS SUMMARY | 2025-02-09 09:37 | XMS_ITS | Clinical Summary ---
Author Organization [facility] [address] [place] [address] Address [address] [place] [address] Phone Care Team Providers Care Roller Skate Assembler Name Role Phone FangPushpaKarma Laboy Primary Care Provider [phone] Allergies No known active allergies Medications escitalopram [...] Diagnosed Date Age related osteoporosis 04/11/2024 Immunizations Immunization Administration Dates Next Due Moderna SARS-CoV-2 COVID-19, [...] 10:20 AM EST Office Visit Endocrinology - [place] [address] [place] [address] Ciarra Pyle PA [address] [place] [address] Health Maintenance Due Date Last Done Comments Breast Cancer Screening 1955 Colorectal Cancer Screening: Colonoscopy 1955 Pneumococcal Vaccine: 50+ Years (1 of 1 - PCV) 10/30/2003 Falls Risk Assessment 10/26/2023 Hepatitis C Screening [...] age to complete this topic Insurance MEDICARE [facility] Care Teams Roller Skate Assembler Relationship Specialty Start Date End Date Karma Ornelas FNP [address] [place] [address] [facility] [place] [place] [address] PCP - General Nurse Practitioner 04/16/24
--- OUTSIDE RECORDS SUMMARY | 2025-02-09 09:37 | XMS_ITS | Patient Health Record ---
Author Organization [facility] Address [address] [place] [address] Care Team Providers Care Formation Testing Operator Name Role Phone Nickie Finn MD Primary Care Provider Shashi Nguyen Unavailable [phone] Reason For Referral No Information Medications Medication SIG (Take, Route, Frequency, Duration) Notes Start Date End Date Status Calcium 500 MG 1 tablet with meals Orally Twice a day; Duration: 30 day(s) Active Multivitamin - 1 tablet Orally Once a day; Duration: 30 day(s) Active Escitalopram Oxalate 10 MG TAKE 1 AND 1/ 2 TABLETS BY MOUTH DAILY WITH FOOD Oral; Duration: 30 Active Immunizations Vaccine Route Administration Date [...] Problem Status W/U Status Risk Notes Problem Screening for malignant neoplasm of colon (634436157) Encounter for screening for malignant neoplasm of colon (Z12.11) Active confirmed Problem History of adenomatous polyp of colon (932309615) History of adenomatous polyp of colon (Z86.010) Active confirmed Problem Change in bowel habit (05178537) Change in bowel habits (R19.4) Active confirmed Problem Diverticular disease of colon (224994700) Diverticulosis of large intestine without perforation or abscess without bleeding (K57.30) Active confirmed Problem Screening for malignant neoplasm of rectum (499647194) Encounter for screening for malignant neoplasm of rectum (Z12.12) Active confirmed Problem Preprocedural examination (432697078399262) Preprocedural examination (Z01.818) Active confirmed Problem Diarrhea of presumed infectious origin (disorder) (77810706) Diarrhea of infectious origin (A09) Active confirmed Problem Diarrhea (34735148) Diarrhea, unspecified type (R19.7) Active confirmed Plan [...] Date MEDICARE OF [place] [address] [place] [address] [id number] FRANNY FRANCISCO Self - patient is the insured [employer] ATTN CLAIMS [address] [place] [address] [id number] FRANNY FRANCISCO Self - patient is the insured Medical (General) History Medical History History ICD Code Tubular adenomas removed in 2006--neg colonoscopy in 2009 except for diverticulosis and internal hemorrhoids ADD/Anxiety Denies [place],DM,CVA,Lung disease,renal dise ase Neg. colonoscopy in 11/2015 [...]
== END 2025-02-09 10:26 | disposition home or self-care (01) ==
LOC: HO.HOP 08:59
PROVIDERS: PCP Nurse Practitioner Family; Visit Provider Clinical Nurse Specialist Psychiatric/Mental Health
DX: F33.9 Major depressive disorder, recurrent, unspecified (principal); F41.1 Generalized anxiety disorder
CPT/HCPCS: 99214

== ENCOUNTER → 2025-02-09 08:59 | Outpatient (BNVA) | payer MEDICARE, SELFPAY | PROVIDERS: PCP Nurse Practitioner Family; Visit Provider Clinical Nurse Specialist Psychiatric/Mental Health | DX: F33.9 Major depressive disorder, recurrent, unspecified (principal); F41.9 Anxiety disorder, unspecified; Z79.899 Other long term (current) drug therapy | CPT/HCPCS: 99212 ==

== ENCOUNTER 2025-03-12 16:43 | Outpatient (AMB) | payer MEDICARE, SELFPAY ==
--- NOTE | 2025-03-12 13:59 | A.OFFPSYCH_ITS ---
Intake Intake Visit Reasons: depression Corner Brace Block Machine Operator Required: No Allergies No Known Drug Allergies Allergy (Unknown, Verified 11/28/24 08:47) UNKNOWN Medication List - Last Reconciled 03/12/25 by Gayle Gonzalez APRN alendronate 70 mg PO QWEEK 90 days clobetasol 0.05% 1 appl topical BID escitalopram oxalate 15 mg orally; 90 days ketamine 100 mg sublingual HPI- Psychiatric Chief Complaint: depression HPI Narrative: pt seen via telehealth appt sooner than scheduled due to concerns about meds and ketamine treatment; pt has questions about taking ativan prn for anxiety related to ketamine treatment that occurred recently; initially pt had very positive effects from ketamine but 2-3 times erecently its been more difficult for her to tolerate the sie effects: dissociating longer, perhaps more powerfully and di fficult ambulating for a period after treatment. discussed pros and cons of ativan use prn. Pt getting clear benefit from ketamine: more able to utilize EMDR in therapy, more hope in general, less self flagellation, more distance from chronic negative self talk, improvements in depression. more ability to feel tam. Discussed medical reasons she may be metabolizing ketamine differently than when first started; agree to check Liver and kidney functoning; denies SI or HI Past Psychiatric History: no IPLOC, no PHP or IOP; outpatient therapy with Leslie FARRIS in [place] for years; long history of anxiety and dysthymia, recent dx of ADHD Subjective Subjective Medication Compliance: Yes Side effects from medications: No Review of Systems Medical Review of Systems: unchanged Mental Status Exam Mental Status Exam Patient Appearance: Well Grooomed and Appropriate Patient Orientation: Person, Place, Time and Situation Level of Consciousness: Awake, Appropriate and Alert Patient Behavior: Appropriate, Cooperative and Good Eye Contact Mood Description: Happy, Appropriate and Cheerful Affect Description: Happy, Appropriate and Cheerful Patient Cognition Impaired: No Ability to Follow Directions: Good Speech Pattern: Clear, Appropriate and Coherent Memory Description: Intact Hallucinations: None Delusions: Not Present Thought Process: Intact and Goal Oriented Thought Content: positive for Intact and positive for Goal Oriented Judgement: Good Telehealth Telehealth Telehealth Platform: [employer] Location of provider rendering services: practice address Location of patient: address on file Patient Identification confirmed using: Name, : Yes Telehealth method: video Patient verbally consented to treatment: Yes Patient verbally consented to billing insurance company: Yes Patient informed of any privacy concerns related to visit: Yes Minutes spent on Phone/Video with Pt.: 30 Assessment and Plan Assessment & Plan (1) Major depressive disorder, recurrent episode with anxious distress: Status: Acute Code(s): F33.9 - Major depressive disorder, recurrent, unspecified (2) LUÍS (generalized anxiety disorder): Status: Acute Code(s): F41.1 - Generalized anxiety disorder Plan continue lexapro 15mg daily return in 2-3 months Orders: Orders Comprehensive Met. Panel Today Z79.899 - Other detention (current) drug therapy Counseling and coordination of Care Pt. Self Management counseling: Maintenance-social rhythm, Mod caffeine/ETOH intake, Sleep hygiene, Behavior activation, General coping skills, Greif counseling and Problem solving Medication management counseling: Effectiveness, Side effects, Dosing range, Duration, Drug interaction and Adherence Diagnosis and Prognosis Counseling: Accuracy of diagnosis, Prognosis over time, Impact of diagnosis on life functions, Problematic behaviors secondary to diagnosis and Adequacy of current interventions Details: I spent 40 minutes reviewing the record, seeing the patient and documenting in the medical record. Counseling provided to the patient/caregiver as outlined below. Addressed patient/caregiver concerns regarding current medication regime including effective adherence. Addressed patient/caregiver concerns regarding diagnosis and prognosis including accuracy of diagnosis, prognosis over time, impact of diagnosis. Addressed patient/caregiver concerns regarding impact of recent stressors. [facility] Medical History (Updated 03/12/25 @ 16:20 by Gayle Gonzalez APRN) Shingles ADD (attention deficit disorder) Incontinence Arthritis Heart murmur High cholesterol Anxiety Cataract Annual physical exam Parasite infection Wrist fracture, left Anemia Normal Pap smear Lumbar degenerative disc disease Mitral regurgitation Hyperlipidemia Depression Osteoporosis History of mammogram Surgical History (Updated 07/09/24 @ 07:41 by Karma Ornelas, [facility]) Hx of appendectomy History of tonsillectomy History of laparoscopic appendectomy H/O colonoscopy (~2020) Family History Father History of heart surgery High cholesterol Cardiovascular disease Mother Cardiovascular disease Mental health disorder Maternal Grandfather Diabetes mellitus Cancer Maternal Grandmother Cancer Paternal Grandmother Cancer Sister Asthma Paternal Grandfather Cardiovascular disease Cancer Social History (Updated 11/28/24 @ 08:45 by MARY Devine Housing: House Alcohol intake: current Alcohol intake frequency: a few times a month Patient Tobacco Use Status: Never used Tobacco e-Cigarette/Vaping Use: Never Used Second Hand Smoke Exposure: No Advance Directives Date on File: 09/15/20 Current occupational status: retired Current occupation: rt handed Cognitive needs: No Hearing needs: No Vision needs: Yes 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
--- OUTSIDE RECORDS SUMMARY | 2025-03-12 23:25 | XMS_ITS | Clinical Summary ---
[facility] Organization [facility] [address] [place] [address] Address [address] [place] [address] Phone Care Team Providers Care Sheet Metal Erector Name Role Phone FangPushpaKarma Laboy Primary Care [...] on file Sexual Orientation Not on file Last Filed Vital Signs Vital Sign Reading [...] 10:20 AM EST Office Visit Endocrinology - [place] [address] [place] [address] Ciarra Pyle PA [address] [place] [address] Health Maintenance Due Date Last Done Comments [...] age to complete this topic Insurance MEDICARE [facility] Care Teams Sheet Metal Erector Relationship Specialty Start Date End Date Karma Ornelas FNP [address] [place] [address] [facility] [place] [address] PCP - General Nurse Practitioner 04/16/24
--- OUTSIDE RECORDS SUMMARY | 2025-03-12 23:25 | XMS_ITS | Patient Health Record ---
Author Organization [facility] Address [address] [place] [id number] Care Team Providers Care Cutter Woodwind Reeds Name Role Phone Nickie Finn MD Primary Care Provider Shashi Nguyen Unavailable [phone] Reason For Referral No Information Medications Medication SIG (Take, Route, Frequency, Duration) Notes Start Date End Date Status Calcium 500 MG Tablet 1 tablet with meal s Orally Twice a day; Duration: 30 day(s) Active Multivitamin - Tablet 1 tablet Orally On ce a day; Duration: 30 day(s) Active Escitalopram Oxalate 10 MG Tablet TAKE 1 AND 1/2 TABLETS BY MOUTH DAILY WITH FOOD Oral; Duration: 30 Active Immunizations Vaccine Route Administration Date Status Comme nts Influenza Unknown 01/01/2020 Administered Social History Social History Drugs/Alcohol: Social Info Question Answer Notes Alcohol Screen Did you have a drink containing alcohol in the past year? Yes How often did you have a drink containing alcohol in the past year? 2 to 4 times a month (2 points) How many drinks did you have on a typical day when you were drinking in the past year? 1 or 2 drinks (0 point) How often did you have 6 or more drinks on one occasion in the past year? 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 Section Notes: Nonsmoker; no sig alcohol Nonsmoker; no sig alcohol Nonsmoker; no sig alcohol Nonsmoker; no sig alcohol Problems Problem Type SNOMED Code ICD Code Onset Dates Problem Status W/U Status Risk Notes Problem Screening for malignant neoplasm of colon (777521181) Encounter for screening for malignant neoplasm of colon (Z12.11) Active confirmed Problem History of adenomatous polyp of colon (086173915) History of adenomatous polyp of colon (Z86.010) Active confirmed Problem Change in bowel habit (32710693) Change in bowel habits (R19.4) Active confirmed Problem Diverticular disease of colon (722000527) Diverticulosis of large intestine without perforation or abscess without bleeding (K57.30) Active confirmed Problem Screening for malignant neoplasm of rectum (419961370) Encounter for screening for malignant neoplasm of rectum (Z12.12) Active confirmed Problem Preprocedural examination (064549978997371) Preprocedural examination (Z01.818) Active confirmed Problem Diarrhea of presumed infectious origin (disorder) (10760380) Diarrhea of infectious origin (A09) Active confirmed Problem Diarrhea (88755430) Diarrhea, unspecified type (R19.7) Active confirmed Plan [...] Date MEDICARE OF [place] [address] [place] [address] [id number] FRANNY FRANCISCO Self - patient is the insured [employer] ATT[employer] CLAIMS [address] [place] [address] [id number] FRANNY FRANCISCO Self - patient is the insured Medical (General) History Medical History History ICD Code Tubular adenomas removed in 2006--neg colonoscopy in 2009 except for diverticulosis and internal hemorrhoids ADD/Anxiety Denies CT,DM,CVA,Lung disease,renal dise ase Neg. colonoscopy in 11/2015 [...]
== END 2025-03-12 16:43 | disposition home or self-care (01) ==
LOC: HO.HOP 16:43
PROVIDERS: PCP Nurse Practitioner Family; Visit Provider Clinical Nurse Specialist Psychiatric/Mental Health
DX: F33.1 Major depressive disorder, recurrent, moderate (principal); F41.1 Generalized anxiety disorder
CPT/HCPCS: 99214

== ENCOUNTER 2025-03-14 08:34 | Outpatient (REF) | payer MEDICARE, SELFPAY ==
--- OUTSIDE RECORDS SUMMARY | 2025-03-14 08:36 | XMS_ITS | Clinical Summary ---
Author Organization [facility] [address] [place] [address] Address [address] [place] [address] Phone Care Team Providers Care Technology Development Intern Name Role Phone FangPushpaKarma Laboy Primary Care [...] 10:20 AM EST Office Visit Endocrinology - [place] [address] [place] [address] Ciarra Pyle PA [address] [place] [address] Health Maintenance Due Date Last Done Comments [...] age to complete this topic Insurance MEDICARE [facility] Care Teams Technology Development Intern Relationship Specialty Start Date End Date Karma Ornelas FNP [address] [place] [address] [facility] [place] [address] PCP - General Nurse Practitioner 04/16/24
--- OUTSIDE RECORDS SUMMARY | 2025-03-14 08:37 | XMS_ITS | Patient Health Record ---
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; no sig alcohol Nonsmoker; no sig alcohol Nonsmoker; no sig alcohol Nonsmoker; no sig alcohol Problems Problem Type SNOMED Code ICD Code Onset Dates Problem Status W/U Status Risk Notes Problem Screening for malignant neoplasm of colon (331533357) Encounter for screening for malignant neoplasm of colon (Z12.11) Active confirmed Problem History of adenomatous polyp of colon (405334521) History of adenomatous polyp of colon (Z86.010) Active confirmed Problem Change in bowel habit (09710360) Change in bowel habits (R19.4) Active confirmed Problem Diverticular disease of colon (398687029) Diverticulosis of large intestine without perforation or abscess without bleeding (K57.30) Active confirmed Problem Screening for malignant neoplasm of rectum (662404498) Encounter for screening for malignant neoplasm of rectum (Z12.12) Active confirmed Problem Preprocedural examination (490183124471936) Preprocedural examination (Z01.818) Active confirmed Problem Diarrhea of presumed infectious origin (disorder) (25641679) Diarrhea of infectious origin (A09) Active confirmed Problem Diarrhea (82170444) Diarrhea, unspecified type (R19.7) Active confirmed Plan [...] [place] [address] [place] [address] [id number] FRANNY FRANCISCO Self - patient is the insured [employer] ATT[employer] CLAIMS [address] [place] [address] [phone] [id number] FRANNY FRANCISCO Self - patient is the insured Medical (General) History Medical History History ICD Code Tubular adenomas removed in 2006--neg colonoscopy in 2009 except for diverticulosis and internal hemorrhoids ADD/Anxiety Denies NH,DM,CVA,Lung disease,renal dise ase Neg. colonoscopy in 11/2015 [...]
[2025-03-14 10:51] LABS: Alanine Aminotransferase 22 U/L (0-31); Albumin Level 4.2 g/dL (3.5-5.0); Alkaline Phosphatase 69 U/L (39-117); Anion Gap 10 (12-20); Aspartate Amino Transferase 28 U/L (5-31); Blood Urea Nitrogen 16 mg/dL (9-16); Calcium 9.9 mg/dL (8.4-10.2); Carbon Dioxide 25 mmol/L (22-29); Chloride 110 mmol/L (96-108); Estimated Glomerular Filt Rate > 60; Potassium 4.3 mmol/L (3.3-5.1); Sodium 141 mmol/L (135-145); Total Protein 7.0 g/dL (6.5-8.0)
== END 2025-03-14 08:35 | disposition home or self-care (01) ==
LOC: HO.LAB 08:34
PROVIDERS: PCP Nurse Practitioner Family; Visit Provider Clinical Nurse Specialist Psychiatric/Mental Health
DX: Z79.899 Other long term (current) drug therapy (principal)
CPT/HCPCS: 36415; 80053

== ENCOUNTER 2025-03-23 15:08 | Outpatient (AMB) | payer MEDICARE, SELFPAY ==
--- NOTE | 2025-03-23 15:11 | A.OFFVIS_ITS ---
Intake Vital Signs 3 03/23/25 15:16 Height 5 ft 6 in Weight 152 lb BMI 24.5 BP 118/70 Blood Pressure Location Lt brachial Position Sitting Respiration 12 Pulse 65 Pulse Source Pulse Oximeter Temp 97.2 F Temp Source Oral Pulse Oximetry (%) 99 Oxygen Delivery Method Room Air Intake Visit Reasons: Wellness exam Intake Note: AWV. 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 The Medicare Annual Wellness Visit (AWV) is a yearly appointment with a health professional to identify health risks and help reduce them and to create or update a personalized prevention plan. During a Medicare AWV, health professionals should also review any current opioid prescriptions, detect any cognitive impairment, and establish or update medical and family history. 69 y/o F with LUÍS, MDD, ADHD, HLD, VIt D def, Mitral Regurg, urinary incont, cataracts, anemia, lumbar DJD, lichen sclerosis , osteoporosis, elevated intact PTH, JEFF on CPAP s/p appendectomy, oopherectomy Health Maintenance: See scanned preventative medicine assessment with personalized health plan and screening schedule. Tdap 2015, COVID booster, Flu 2024, Shinges UTD, PCV Mammo 10/11/23, will schedule Colon 08/2020 Dr Whaley, 5 year repeat (2025) DEXA 05/2023 Echo 01/2023 EF 62% The left atrium is mildly dilated, tace mitral valve regurgitation, mild tricuspid valve regurgitation, no significant change compared to prior study dated: 11/24/2016. AAA screen: NA EKG: done today low voltage, sinus ean Specialists/ [place] of Care: Pysch & counselor Derm ENT Pallavi Timmons hearing WNL completed consult 01/2025 trialed hearing aides w/o improvement overall; some high range loss Endo Cards Uro SurgHx: Y FHx: Y SocHx: Y Visual Acuity: Y wears glasses Hearing Screening: VEENA , active w/ ENT ACP: Info provided today, has HCP at home (sister) Dietary/Nutrition/Exercise Edu provided: Y Results Labs10/08/23 show a normal glucose, normal renal function, normal electrolytes, normal phosphorus normal ferritin, normal iron profile, normal LFTs, slightly elevated intact parathyroid 97, serum protein electrophoresis normal, TSH normal, vitamin-D normal During the course of the visit the patient was educated and counseled about appropriate screening and preventative services. Patient instructions were provided to the patient in written or electronic format. I have reviewed and verified the above information. History of Present Illness The patient is a 69 year old female presenting for her Annual Medicare Wellness visit. Vasomotor rhinitis: - The patient complains of a dripping no se, which she refers to as old person's nose drip, that occurs every day from her left nostril. - This is identified as vasomotor rhinit is related to postmenopausal tissue drying. Hematoma, right thigh: - The patient has a persistent hematoma on her right hip/thigh area from a fall that occurred approximately 2.5 years ago. - It is described as a raised, solid mas s that does not hurt but has not resolved. - The patient notes that it used to be b igger. Obstructive sleep apnea: - The patient expresses a strong dislike for her CPAP machine, finding the hoses and wires bothersome. - Despite her hatred for it, she is comp liant and wears it at least five days a week. - She remains unconvinced that it helps her, as she never felt sleepy before its use, but understands it is intended to prevent stroke or heart attack. - She questions the original at-home sle ep study findings and expressed a desire to re-evaluate the diagnosis at some point. Depression: - The patient has been receiving ketamin e treatment for depression for 9-10 months, typically three times a month. - Initially, she enjoyed the experience, including visual hallucinations. - However, she had two to three recent u ncomfortable experiences, including a feeling of loss of control and an episode of significant dizziness, room spinning, and unsteadiness after unblocking her eyes mid-treatment. - This episode occurred after starting a new batch of medication, and there was suspicion of inconsistency in the medication. - These events made her frightened of th e medicine, and her dosage was subsequently reduced from 120 mg to 100 mg, and now to 65 mg. 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 History of shoulder fracture L: - The patient fractured her shoulder a y ear ago and reports it is still not completely healed. - She experiences some pain and sensatio n, especially when pulling her arm back. - She admits to not being compliant with her physical therapy exercises. - She reports her shoulder is atleast ab out 80% recovery with good range of motion. Pelvic floor dysfunction/Urinary incont: - The patient has a known need for pelvi c physical therapy. - She has been unable to start due to alexandra rand being busy and long waiting lists (3- 5 months) at the facilities she contacted. History of urinary incontinence study: - The patient has an Entyvio implant as part of a study, which she reports is not working for her. - The study ends in July, at which poin t she will have the device removed. Osteoporosis: - The patient has osteoporosis, which is managed by endocrinology. - She takes Fosamax weekly. - She has not had a bone density scan si 2023 and is due for one. Past Medical History - Depression, treated with escitalopram and ketamine infusions. - Obstructive sleep apnea, on CPAP thera py. - Osteoporosis, managed by endocrinology and treated with Fosamax. - Vasomotor rhinitis. - History of low blood pressure with ass ociated dizziness, which has improved. - High frequency hearing loss. Past Surgical History - Appendectomy (remote). - Entyvio implant (for research study), pending removal. Social History - Employment: Works two days a week. - Travel: Plans to go to [facility] in [facility] for a yoga retreat. - Substance Use: Denies history of illic it drug use in her youth. Currently uses prescribed ketamine for depression. - Marital/Family Status: Does not have children. - Social Support: Her sister, Génesis centeno, is her designated healthcare proxy. Health Maintenance - Annual Medicare Wellness Visit was con ducted. - EKG: Performed today, initial machine read was abnormal, but manual review confirmed a normal EKG. - Labs: A1c today is 4.6. Recent labs fr 03/14/25 showed normal electrolytes, kidney function, and improved liver function. New lab orders were placed for cholesterol, CBC, B12, folate, vitamin D, TSH, and a urine sample. - Mammogram: Due for 2024 screening. - Colonoscopy: Due in 2025, based on a f norberto-year interval from her last procedure in 2020. - Bone Density Scan: Due, has not had on e since 2023. - Vaccinations: Generally up to date. Michael brown needs to obtain the date of her past Pneumococcal (PCV/PPSV) vaccine. - Hearing Screen: Completed in January; results were within normal limits except for decreased high-range hearing. Recommended follow-up in 1-2 years. - Eye Exam: Last in-office exam was with in the last year. - Advance Care Planning: Patient has a l egal document designating her sister as healthcare proxy and will provide a copy. She has not yet completed a MOLST form. 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 - HEENT: Reports bothersome rhinorrhea f rom the left nostril. Denies hearing loss based on recent formal testing. - Neurological: Reports ongoing concerns about memory, though cognitive screening was normal. Reports recent episodes of dizziness and dissociation during ketamine therapy. Denies stroke. - Musculoskeletal: Reports mild, persist ent pain and sensation in her previously fractured shoulder. Reports a non-painful mass on her right thigh. - Genitourinary: Reports a need for pelv ic floor physical therapy. - Psychiatric: Reports history of depres rafa, with mood improvement on current therapy. - Cardiovascular: Denies chest pain or o ther acute cardiac symptoms. Denies an increase in dizzy episodes related to low blood pressure. - Abdomen: Denies significant abdominal pain. Physical Exam General: Well developed, well nourished, in no acute distress. Appears stated age. Head: Normocephalic, atraumatic. Eyes: Pupils are equal, round and reactive to light and accommodation. Conjunctivae are clear. Scleras nonicteric bilat. Vision grossly normal. Ears: TMs clear AU, EACS WNL Nose: Patent, with left nostril dripping. No discharge noted. Neck: No carotid bruit bilat. Supple, no adenopathy or thyromegaly. Breast: Edu on SBE Lungs: Clear to auscultation bilaterally. No rales, rhonchi or wheeze noted. Good air flow in all collins. Heart: Regular rate and rhythm. No murmurs, click, rubs or gallops are noted. Abdomen: Bowel sounds present in all quadrants. The abdomen is soft, mildly tender over epigatrum (advised to monitor and if cont to let me know), with no masses or organomegaly noted. No hernias are noted. : Deferred. Reviewed recommendations for routine BUSINESS ARCHITECT Pulses: Peripheral pulses are equal and palpable bilaterally. Extremities: No clubbing, cyanosis nor edema is noted. Neurologic: Gait and station normal. Cranial Nerves 2-12 intact. Motor strength grossly symmetrical and intact. No sensory loss. Balance normal. Skin: No rashes, ulcers, or lesions noted. Turgor is good. Skin color is good. Hair and nails are without abnormalities. Superficial faint pink rash w secondary excoriations noted to sides of abd bilat, self limiting Psych: Normal eye contact, affect and mood appropriate, and normal interactions. Patient is alert and appropriate to context. Results - Labs: - A1c (today): 4.6%. - Comprehensive Metabolic Panel (): Electrolytes, kidney function, calcium, bilirubin, protein, and albumin were normal. Glucose was 90. Liver enzymes were normal and improved (AST 28, ALT 22) compared to the prior year. - Tests and Diagnostics: - EKG (today): An initial machine interp retation suggested an acute abnormality, but manual review of two separate tracings confirmed a normal EKG. - Hearing Test (January): Results were within normal limits, with the exception of decreased high-range hearing. Medical Decision Making The patient is a 69-year-old female presenting for her annual wellness exam with several concerns. Her unilateral rhinorrhea is consistent with vasomotor rhinitis, and a trial of ipratropium nasal spray is indicated as a non-steroidal agent to reduce secretions. The persistent, firm, non-tender mass on her right thigh, present since a fall 2.5 years ago, is highly suspicious for a chronic organized hematoma. To confirm the diagnosis and rule out other etiologies, an ultrasound of the area is the appropriate next diagnostic step. Initial management will be conservative with warm, moist compresses. Regarding her obstructive sleep apnea, the patient dislikes the CPAP but remains compliant. While she does not perceive a subjective benefit in terms of sleepiness, the primary goal of therapy is to reduce her risk for cardiovascular and cerebrovascular events, such as stroke and sudden cardiac . Continued use is strongly recommended for this preventative benefit. 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 The concerning side effects of dissociation and dizziness have been addressed by a significant dose reduction to 65 mg, and recent liver function tests are reassuringly normal. Health maintenance items were addressed, including ordering labs for cholesterol and thyroid screening, and advising the patient to schedule her due mammogram, bone density scan, and a consultation for her upcoming colonoscopy. We will also continue to encourage adherence to home PT for her shoulder and scheduling of pelvic floor PT. Plan 1. Annual Medicare Wellness Visit - Labs Ordered: CBC, lipid panel, vitami n B12, folate, vitamin D, TSH, and urinalysis. - Screening: Patient to schedule mammogr am and bone density scan. Advised to schedule a consultation with Dr. Whaley for a colonoscopy due in 2025. - Vaccinations: Patient to contact pharm acy to obtain the date of her previous pneumococcal (PCV/PPSV) vaccine and report back. - Advance Directives: Patient will provi de a copy of her legal healthcare proxy document. Provided with a MOLST form for completion. 2. Vasomotor Rhinitis - Therapeutics: Prescribed Ipratropium n cyndi spray. Patient advised to use 1-2 sprays in the affected nostril up to three times daily as needed to control dripping. 3. Hematoma, Right Thigh - Diagnostics: Ordered an ultrasound of the right lower extremity to evaluate the palpable mass. - Management: Recommended home care with warm, moist compresses (e.g., wet towel or Epsom salt baths) to help break down the tissue. Discussed lymphatic massage as a potential non-prescriptive option. 4. Obstructive Sleep Apnea - Management: Encouraged continued night ly use of CPAP machine despite patient's dislike for it, reinforcing the benefit of reducing risk for stroke and cardiac events. Patient is currently compliant 5 days/week. - Follow-up: Discussed potential for a f uture in-lab titration study to verify settings, but will defer for now. Patient may re-evaluate her diagnosis closer to age 73. 5. Depression - Management: Patient to continue ketami ne therapy at the reduced dose of 65 mg. Recent labs show good tolerance. Patient reports subjective improvement in mood. - Medication: Patient has a prescription for lorazepam (Ativan) for as-needed use for anxiety, but has not yet taken it. Advised to take a trial dose at home to assess effects. 6. Shoulder Joint Pain L - Management: Recommended patient resume home physical therapy exercises daily for 4-6 weeks to address residual pain and sensation from a prior fracture. Patient declined a referral for formal PT. 7. Pelvic Floor Dysfunction/Urinary inco nt - Management: Patient acknowledges the n eed for pelvic floor PT and will commit to scheduling an appointment, despite known long wait times. Patient Instructions - Use the new Ipratropium nasal spray in your left nostril up to three times a day as needed for your runny nose. - The hospital will call you to schedule an ultrasound for the lump on your right thigh. - To help the lump on your thigh, you ca n apply a warm, wet towel to the area or take baths with Epsom salts. 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 - Make an effort to schedule an appointm ent for pelvic floor physical therapy. - Please continue using your CPAP sleep machine, even though you dislike it. It is very important for preventing serious problems like a stroke. - Go to the lab to get your blood and ur ine tests done. You do not need to fast (avoid eating), but please be sure to drink plenty of water before you go. - Schedule your yearly mammogram. - Call your education program associate (Dr. Lena mohamud) soon to get on the schedule for your next colonoscopy. - Schedule your next bone density scan. - Please ask the pharmacy for the date o f your last pneumonia shot (PCV or PPSV) and send us a message with that date through the patient portal. - Please upload a copy of the legal docu ment that names your sister as your healthcare proxy to the patient portal. - RTO 6 mo routine visit, 1 year sAWV Consent Patient was informed and verbally consented to the use of an ambient scribe for clinic note documentation during this visit. An additional 45 minutes was spent addressing the problem(s) noted at todays visit. This includes time spent before the visit reviewing the chart, time spent during the visit, and time spent after the visit on documentation reviewing laboratory results, diagnostic imaging, medications, performing a medically necessary evaluation, counseling on diagnoses, care coordination, ordering appropriate tests, ordering appropriate medications, review of tests performed by other providers, reporting test results with the patient, communication with other healthcare providers. [facility] Medical History (Updated 03/23/25 @ 16:41 by FIDELINA Montero-EDEL) ADD (attention deficit disorder) Anemia Annual physical exam Anxiety Arthritis Cataract Depression Heart murmur High cholesterol History of mammogram Hyperlipidemia Incontinence Lumbar degenerative disc disease Mitral regurgitation Normal Pap smear Osteoporosis Parasite infection Shingles Wrist fracture, left Surgical History (Updated 07/09/24 @ 07:41 by FIDELINA Montero-EDEL) H/O colonoscopy (~2020) History of laparoscopic appendectomy History of tonsillectomy Hx of appendectomy Family History Father History of heart surgery High cholesterol Cardiovascular disease Mother Cardiovascular disease Mental health disorder Maternal Grandfather Diabetes mellitus Cancer Maternal Grandmother Cancer Paternal Grandmother Cancer Sister Asthma Paternal Grandfather Cardiovascular disease Cancer Social History (Updated 11/28/24 @ 08:45 by Ree Palacios MA) Housing: House Alcohol intake: current Alcohol intake frequency: a few times a month Patient Tobacco Use Status: Never used Tobacco e-Cigarette/Vaping Use: Never Used Second Hand Smoke Exposure: No Advance Directives Date on File: 09/15/20 Current occupational status: retired Current occupation: rt handed Cognitive needs: No Hearing needs: No Vision needs: Yes Questionnaire Medicare Wellness Checkup [age] What gender do you identify with?: female During the past 4 weeks, how much have you been bothered by emotional problems such as feeling anxious, depressed, irritable, sad or downhearted, and blue?: m oderately During the past 4 weeks, has your physical & emotional health limited your social activities with family, friends, neighbors, or groups?: not at all During the past 4 weeks, how much bodily pain have you generally had?: no pain During the past 4 weeks, was someone available to help you if you needed & wanted help?: yes, as much as I wanted During the past 4 weeks, what was the hardest physical activity you could do for at least 2 minutes?: moderate Can you get to places out of walking distance without help? (For eg., can you travel alone on buses, taxis or drive your car?): Yes Can you go shopping for groceries or clothes without someone's help?: Yes Can you prepare your own meals?: Yes Can you do your housework without help?: Yes Because of any health problems, do you need the help of another person with your personal care needs such as eating, bathing, dressing or getting around the house?: No Can you handle your own money without help?: Yes During the past 4 weeks, how would you rate your health in general?: excellent During the past 4 weeks how have things been going for you?: pretty well Are you having difficulties driving your car?: no Do you always fasten your seat belt when you are in a car?: yes, usually During past 4 weeks, have you been bothered by the following: never: Trouble eating well?, Teeth or denture problems? and Problems using the telephone? and seldom: Falling or dizzy when standing up and Tiredness or fatigue? Have you fallen 2 or more times in the past year?: No Are you afraid of falling?: No Are you a smoker?: no During the past 4 weeks, how many drinks of wine, beer, or other alcoholic beverages did you have?: 1 drink or less per week Do you exercise for about 20 minutes 3 or more times a week?: yes, some of the time Have you been given information to help with the following?: no: Hazards in your house that might hurt you? and no: Keeping track of your medications? How often do you have trouble taking medicines the way you have been told to take them?: I always take medicine as prescribed How confident are you that you can control & manage most of your health problems?: very confident What is your race?: White Activity of Daily Living Bathing - sponge bath, tub bath or shower: receives no assistance (gets in/out by self, if usual bathing means Dressing - getting clothes from closets & drawers, including inner/outer garments & fasteners.: gets clothes & gets completely dressed without help Toileting - going to the 'toilet room' for urine/bowel elimination & cleaning self/arranging clothes: goes to toilet room, cleans self, arranges clothes without help Transfer: moves in & out of bed and chair without help (may use support object) Continence: controls urination/bowel movements completely by self Feeding: feeds self without help Total Score: 0 Information obtained from: patient Using telephone: independent Traveling: independent Shopping: independent Preparing meals: independent Housework: independent Taking medicine: independent Managing money: independent PHQ-9 Over the last 2 weeks, how often have you been bothered by any of the following problems? 1. Little interest or pleasure in doing things: not at all 2. Feeling down, depressed, or hopeless: not at all 3. Trouble falling or staying asleep, or sleeping too much: not at all 4. Feeling tired or having little energy: not at all 5. Poor appetite or overeating: not at all 6. Feeling bad about yourself - or that you are a failure or have let yourself or your family down: not at all 7. Trouble concentrating on things, such as reading the newspaper or watching television: not at all 8. Moving or speaking so slowly that other people could have noticed. Or the opposite - being so fidgety or restless that you have been moving around a lot more than usual: not at all 9. Thoughts that you would be better off or of hurting yourself in some way: not at all Total score: 0 Depression Screening Interpretation: Negative Depression Screening Done: Yes 92973 - PHQ-9 Billing: Yes Source: Developed by Drs. Shashi Gomez, Dorie Beyer, Reyes Healy and colleagues, with an educational wali from [employer]. Physical Exam Vital Signs: Last Vital Signs Temp 97.2 F 03/23/25 15:16 Pulse 65 03/23/25 15:16 Resp 12 03/23/25 15:16 BP 118/70 03/23/25 15:16 Pulse Ox 99 03/23/25 15:16 Oxygen Delivery Method Room Air 03/23/25 15:16 BMI result Body Mass Index 24.5 Extrem Upper/lower leg/hip images: 2 1. palpable mass, soft, overlying skin slightly dusky Office Procedures EKG [id number], Complete Vision Screening Right Eye: 20/30 Left Eye: 20/25 Bilateral: 20/25 Color: Pass Corrected: Pass (wearing glasses) [id number] - Vision Screening Results AMB Hemoglobin A1c 2 AMB Hemoglobin A1c 4.6 % Last Edit by Polina Swift MA on 03/23/25 15:27 Results Reviewed Results Reviewed: Laboratory Last Values Hgb A1c (Clinic) 4.6 % (4.0-6.0) 03/23/25 15:20 Assessment & Plan Assessment & Plan (1) Encounter for annual wellness visit (AWV) in Medicare patient: Onset Date: ~03/23/25 Code(s): Z00.00 - Encounter for general adult medical examination without abnormal findings (2) Nonallergic vasomotor rhinitis: Code(s): J30.0 - Vasomotor rhinitis (3) Severe obstructive sleep apnea-hypopnea syndrome: Comment: sleep study 04/2024 Code(s): G47.33 - Obstructive sleep apnea (adult) (pediatric) (4) Greater tuberosity of humerus fracture: Comment: history of 2023 cont to have some pain when certain ROM recommend doing HEP Code(s): S42.253A - Displaced fracture of greater tuberosity of unspecified humerus, initial encounter for closed fracture Qualifiers: Encounter type: sequela Fracture type: closed Laterality: left (5) Urinary incontinence: Comment: recommend pelvic floor PT Code(s): R32 - Unspecified urinary incontinence Qualifiers: Urinary Incontinence type: continuous leakage Qualified Code(s): N39.45 - Continuous leakage (6) Osteoporosis: Comment: DEXA SD -2.8 05/2018, pt declined treatment Code(s): M81.0 - Age-related osteoporosis without current pathological fracture Qualifiers: Osteoporosis type: age-related Presence of current pathological fracture: without current pathological fracture Qualified Code(s): M81.0 - Age- related osteoporosis without current pathological fracture (7) Vitamin D deficiency: Code(s): E55.9 - Vitamin D deficiency, unspecified (8) Anemia: Code(s): D64.9 - Anemia, unspecified (9) Mass of leg: Code(s): R22.40 - Localized swelling, mass and lump, unspecified lower limb Qualifiers: Laterality: right Qualified Code(s): R22.41 - Localized swelling, mass and lump, right lower limb Plan . Orders: Orders 2 AMB Hemoglobin A1c Today Z13.9 - Encounter for screening, unspecified Lipid Panel Today D64.9 - Anemia, unspecified, E55.9 - Vitamin D deficiency, unspecified, M81.0 - Age-related osteoporosis without current pathological fracture Microalbumin, Random (w Creat) Today D64.9 - Anemia, unspecified, E55.9 - Vitamin D deficiency, unspecified, M81.0 - Age-related osteoporosis without current pathological fracture TSH reflex Free T4 Today D64.9 - Anemia, unspecified, E55.9 - Vitamin D deficiency, unspecified, M81.0 - Age-related osteoporosis without current pathological fracture Vitamin B12 and Folate Today D64.9 - Anemia, unspecified, E55.9 - Vitamin D deficiency, unspecified, M81.0 - Age-related osteoporosis without current pathological fracture US Extremity Nonvas Limited RT Today R22.40 - Localized swelling, mass and lump, unspecified lower limb Complete Blood Count no Diff Today D64.9 - Anemia, unspecified, E55.9 - Vitamin D deficiency, unspecified, M81.0 - Age-related osteoporosis without current pathological fracture Vitamin D 25-OH Total Today D64.9 - Anemia, unspecified, E55.9 - Vitamin D deficiency, unspecified, M81.0 - Age-related osteoporosis without current pathological fracture Medications: New 2 ipratropium bromide administer into each nostril 2 sprays intranasal BID-TID PRN 30 mL 2RF allergy symptoms Patient Instructions: Health screenings for women You should visit your health care provider from time to time, even if you are healthy. The purpose of these visits is to: Screen for medical issues Assess your risk for future medical problems Encourage a healthy lifestyle Update vaccinations and other preventive care services Help you get to know your provider in case of an illness Information Even if you feel fine, you should still see your provider for regular checkups. These visits can help you avoid problems in the future. For example, the only way to find out if you have high blood pressure is to have it checked regularly. High blood sugar and high cholesterol levels also may not have any symptoms in the early stages. A simple blood test can check for these conditions. There are specific times when you should see your provider or receive specific health screenings. The [place] Preventive Services Task Force publishes a list of recommended screenings. Below are screening guidelines for women ages 18 to 39. BLOOD PRESSURE SCREENING Your blood pressure should be checked at least once every 3 to 5 years if: Your blood pressure is in the normal range (top number less than 120 mm Hg and bottom number less than 80 mm Hg) You don't have risk factors for high blood pressure Ask your provider if you need your blood pressure checked more often if: The top number is 120 to 129 mm Hg or the bottom number is 70 to 79 mm Hg You have diabetes, heart disease, kidney problems, are overweight, or have certain other health conditions You have a first-degree relative with high blood pressure You are Black You had high blood pressure during a If the top number is 130 mm Hg or greater or the bottom number is 80 mm Hg or greater, this is considered stage 1 hypertension. Schedule an appointment with your provider to learn how you can reduce your blood pressure. Watch for blood pressure screenings in your area. Ask your provider if you can stop in to have your blood pressure checked. BREAST CANCER SCREENING Experts do not agree about the benefits of breast self-exams in finding breast cancer or saving lives. Talk to your provider about what is best for you. A screening mammogram is not recommended for most women under age 40. Your provider may discuss and recommend mammograms, MRI scans, or ultrasounds if you have an increased risk for breast cancer, such as: A mother or sister who had breast cancer at a young age (most often starting screening earlier than the age the close relative was diagnosed) You carry a high-risk genetic marker CERVICAL CANCER SCREENING Cervical cancer screening should start at age 21 years unless your provider advises otherwise. After the first test: Women ages 21 through 29 should have a Pap test every 3 years. Exoprts do not agree on whether HPV testing is recommended for this age group. Women ages 30 through 65 should be screened with either a Pap test every 3 years or the HPV test every 5 years or both tests every 5 years (called cotesting ). Women who have been treated for precancer (cervical dysplasia) should continue to have Pap tests for 20 years after treatment or until age 65, whichever is longer. If you have had your uterus and cervix removed (total hysterectomy), and you have not been diagnosed with cervical cancer or precancer (high grade cervical neoplasia), you do not need cervical cancer screening. CHOLESTEROL SCREENING Cholesterol screening should begin at: Age 45 for women with no known risk factors for coronary heart disease Age 20 for women with known risk factors for coronary heart disease Repeat cholesterol screening should take place: Every 5 years for women with normal cholesterol levels More often if changes occur in lifestyle (including weight gain and diet) More often if you have diabetes, heart disease, kidney problems, or certain other conditions DIABETES SCREENING You should be screened for diabetes starting at age 35 and then repeated every 3 years if you have no risk factors for diabetes. Screening may need to start earlier and be repeated more often if you have other risk factors for diabetes, such as: You have a first degree relative with diabetes. You are overweight or have obesity. You have high blood pressure, prediabetes, or a history of heart disease. Screening for diabetes should be done if you are planning to become and you are overweight and have other risk factors such as high blood pressure. DENTAL EXAM Go to the dentist once or twice every year for an exam and cleaning. Your dentist will evaluate if you need more frequent visits. EYE EXAM Have an eye exam every 5 to 10 years before age 40. If you have vision problems, have an eye exam every 2 years or more often if recommended by your provider. You should have an eye exam that includes an examination of your retina (back of your eye) at least every year if you have diabetes. IMMUNIZATIONS Commonly needed vaccines include: Flu shot: get one every year. COVID-19 vaccine: ask your provider what is best for you. Tetanus-diphtheria and acellular pertussis (Tdap) vaccine: have one at or after age 19 as one of your tetanus-diphtheria vaccines if you did not receive it as an adolescent. Tetanus-diphtheria: have a booster (or Tdap) every 10 years. Varicella vaccine: receive 2 doses if you never had chickenpox or the varicella vaccine. Hepatitis B vaccine: receive 2, 3, or 4 doses, depending on your exact circumstances. Measles, mumps, and rubella (MMR) vaccine: receive 1 to 2 doses if you are not already immune to MMR. Your provider can tell you if you are immune. Ask your provider about the human papillomavirus (HPV) vaccine if: You have not received the HPV vaccine in the past You have not completed the full vaccine series (you should catch up on this shot) Ask your provider if you should receive other immunizations if you have certain health problems that increase your risk for some diseases such as pneumonia. INFECTIOUS DISEASE SCREENING Women who are sexually active should be screened for chlamydia and gonorrhea up until age 25. Women 25 years and older should be screened for chlamydia and gonorrhea if at high risk. Screening for hepatitis C: All adults ages 18 to 79 should get a one-time test for hepatitis C. people should be screened at every . Screening for human immunodeficiency virus (HIV): All people ages 15 to 65 should get a one-time test for HIV. Depending on your lifestyle and medical history, you may also need to be screened for infections such as syphilis and HIV, as well as other infections. PHYSICAL EXAM All adults should visit their provider from time to time, even if they are healthy. The purpose of these visits is to: Screen for disease Assess your risk of future medical problems Encourage a healthy lifestyle Update your vaccinations and other preventive care services Maintain a relationship with a provider in case of an illness Your height, weight, and BMI should be checked at every exam. During your exam, your provider may ask you about: Depression and anxiety Diet and exercise Alcohol and tobacco use Safety issues, such as using seat belts, smoke detectors, and intimate partner violence Your medicines and risk for interactions SKIN SELF-EXAM Your provider may check your skin for signs of skin cancer, especially if you're at high risk, such as if you: Have had skin cancer before Have close relatives with skin cancer Have a weakened immune system OTHER SCREENING Talk with your provider about colon cancer screening if you have a strong family history of colon cancer or polyps, or if you have had inflammatory bowel disease or polyps yourself. Routine bone density screening of women under 40 is not recommended. Quality Reporting (2020) Adult ([facility] 138/05/24/68) Smoking risk assessment performed?: Yes Patient Tobacco Use Status: Never used Tobacco Depression screening performed: Yes Systolic BP not done?: No Diastolic BP not done?: No BMI screening not done: No Sexual Activity Screening ([facility] 153) Sexually active?: No Immunizations ([facility] 147, 117) Annual Influenza Vaccine: Yes Measles Antibody Test: No Mumps Antibody Test: No Rubella Antibody Test: No Varicella Antibody Test: No Anti Hepatitis A IgG Antigen test: No Anti Hepatitis B Virus Surface Ab test: No Fall Risk Screening ([facility] 139) Last assessed Fall Risk: 03/23/25 Fall risk assessment: 1 Fall in past year Dementia Assessment ([facility] 149) Cognitive assessment recorded: Yes Assessment of cognition with standardized tool: Yes (6 cit 0/28) Depression/Bipolar (159/160/161/177) PHQ-9: Total score: 0 Suicide risk assessment performed: Yes Ophthalmol:Cataracts Visual Acuity (133) Visual acuity exam performed: Yes (see results) Coding Level of Care Code Medicare Subsequent (G0439) Est Pt Level 5 (65479) Diagnoses Encounter for annual wellness visit (AWV) in Medicare patient Z00.00 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 Severe obstructive sleep apnea-hypopnea syndrome G47.33 Greater tuberosity of humerus fracture S42.253A Encounter type: sequela Fracture type: closed Laterality: left Continuous leakage of urine N39.45 Urinary Incontinence type: continuous leakage Age-related osteoporosis without current pathological fracture M81.0 Osteoporosis type: age-related Presence of current pathological fracture: without current pathological fracture Vitamin D deficiency E55.9 Anemia D64.9 Mass of right lower extremity R22.41 Laterality: right CPT Codes Advance Care Planning - Time spent: 16-45 minutes (0890865538) EKG - CPT: 01048-Ickliostipryydgys, Complete (3087170340) Vision Screening - Vision Screenin - Vision Screening (0068831176) Additional Codes PHQ-9 - 85713 - PHQ-9 Billing: Yes ([id number]) Advance Care Planning Advance Care Planning discussion: Exists, not on file Date of discussion: 03/23/25 Forms completed: Health Care Proxy, MOLST and Living will Time spent: 16-45 minutes Actual minutes spent: 16
[2025-03-23 15:16] VITALS: BP 118/70; PULSE 65; RESP 12; TEMP 36.2; O2SAT 99; BMI 24.5
--- OUTSIDE RECORDS SUMMARY | 2025-03-23 18:20 | XMS_ITS | Clinical Summary ---
Author Organization [facility] [address] [place] [address] Address [address] [place] [address] Phone Care Team Providers Care User Experience Team Lead Name Role Phone FangPushpaKarma Laboy Primary Care [...] 10:20 AM EST Office Visit Endocrinology - [place] [address] [place] [address] Ciarra Pyle PA [address] [place] [address] Health Maintenance Due Date Last Done Comments [...] age to complete this topic Insurance MEDICARE Member Subscriber Plan / Payer (Ef fective 2018-Present) Name:Melchor Castillo Member ID:[id number] Relation to Subscriber:Self Name:Castillo Roche Subscriber ID:[id number] Payer ID:Not on file Group ID:Not on file Type:Medicare Address: [address] [address] [facility] Care Teams User Experience Team Lead Relationship Specialty Start Date End Date Karma Ornelas FNP [address] [place] [address] [facility] [place] [address] PCP - General Nurse Practitioner 04/16/24
--- OUTSIDE RECORDS SUMMARY | 2025-03-23 18:20 | XMS_ITS | Patient Health Record ---
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 Section Notes: Nonsmoker; no sig alcohol Nonsmoker; no sig alcohol Nonsmoker; no sig alcohol Nonsmoker; no sig alcohol Problems Problem Type SNOMED Code ICD Code Onset Dates Problem Status W/U Status Risk Notes Problem Screening for malignant neoplasm of colon (087790769) Encounter for screening for malignant neoplasm of colon (Z12.11) Active confirmed Problem History of adenomatous polyp of colon (679335871) History of adenomatous polyp of colon (Z86.010) Active confirmed Problem Change in bowel habit (38825280) Change in bowel habits (R19.4) Active confirmed Problem Diverticular disease of colon (151369918) Diverticulosis of large intestine without perforation or abscess without bleeding (K57.30) Active confirmed Problem Screening for malignant neoplasm of rectum (950703193) Encounter for screening for malignant neoplasm of rectum (Z12.12) Active confirmed Problem Preprocedural examination (384980079527267) Preprocedural examination (Z01.818) Active confirmed Problem Diarrhea of presumed infectious origin (disorder) (97905633) Diarrhea of infectious origin (A09) Active confirmed Problem Diarrhea (16886199) Diarrhea, unspecified type (R19.7) Active confirmed Plan [...] [place] [address] [place] [address] [phone] [id number] FRANNY FRANCISCO Self - patient is the insured [employer] ATT[employer] CLAIMS [address] [place] [address] [id number] FRANNY FRANCISCO Self - patient is the insured Medical (General) History Medical History History ICD Code Tubular adenomas removed in 2006--neg colonoscopy in 2009 except for diverticulosis and internal hemorrhoids ADD/Anxiety Denies NM,DM,CVA,Lung disease,renal dise ase Neg. colonoscopy in 11/2015 [...]
== END 2025-03-23 16:29 | disposition home or self-care (01) ==
LOC: HO.HMCFM 15:08
PROVIDERS: PCP Nurse Practitioner Family; Visit Provider Nurse Practitioner Family
DX: Z00.00 Encounter for general adult medical examination without abnormal findings (principal); J30.0 Vasomotor rhinitis; G47.33 Obstructive sleep apnea (adult) (pediatric); R32 Unspecified urinary incontinence; D64.9 Anemia, unspecified; R22.41 Localized swelling, mass and lump, right lower limb; M81.0 Age-related osteoporosis without current pathological fracture; E55.9 Vitamin D deficiency, unspecified; Z87.81 Personal history of (healed) traumatic fracture

== ENCOUNTER → 2025-03-23 15:08 | Outpatient (BNVA) | payer MEDICARE, SELFPAY | PROVIDERS: PCP Nurse Practitioner Family; Visit Provider Nurse Practitioner Family | DX: G47.33 Obstructive sleep apnea (adult) (pediatric) (principal); R22.41 Localized swelling, mass and lump, right lower limb; M79.605 Pain in left leg; M81.0 Age-related osteoporosis without current pathological fracture; N39.45 Continuous leakage; Z76.89 Persons encountering health services in other specified circumstances; Z13.1 Encounter for screening for diabetes mellitus | CPT/HCPCS: 83036; 96127; 99212; 99497; G0404 ==

== ENCOUNTER 2025-03-31 09:23 | Outpatient (REF) | payer MEDICARE, SELFPAY ==
[2025-03-31 10:52] LABS: Hematocrit 40.1 % (37.0-47.0); Hemoglobin 12.8 g/dl (12.0-16.0); Mean Corpuscular HGB Conc 31.9 g/dl (31.0-35.0); Mean Corpuscular Hemoglobin 28.6 pg (27.0-33.0); Mean Corpuscular Volume 89.7 fL (80.0-98.0); NRBC Abs Auto 0.000 X10*3/uL (0.0-0.012); NRBC Pct Auto 0.0 /100WBC (0.0-0.2); Platelet Count 186 X10*3/uL (160-400); Red Blood Count 4.47 X10*6/uL (4.20-5.50); White Blood Count 4.7 X10*3/uL (4.8-10.8)
[2025-03-31 11:55] LABS: Cholesterol 237 mg/dL (<200); HDL Cholesterol 68 mg/dL (>40); Triglycerides 69 mg/dL (<150)
--- OUTSIDE RECORDS SUMMARY | 2025-03-31 11:57 | XMS_ITS | Clinical Summary ---
Author Organization [facility] [address] [place] [address] Address [address] [place] [address] Phone Care Team Providers Care Burring Machine Operator Name Role Phone FangPushpaKarma Laboy Primary Care Provider [phone] Allergies No known active allergies Medications escitalopram [...] Care Team (Late st Contact Info) Description 05/07/2025 9:45 AM EST Office Visit Endocrinology - [place] [address] [place] [address] Ciarra Pyle PA [address] [place] [address] Health Maintenance Due Date Last Done Comments [...] age to complete this topic Insurance MEDICARE [facility] Care Teams Burring Machine Operator Relationship Specialty Start Date End Date Karma Ornelas FNP [address] [place] [address] [facility] [place] [address] PCP - General Nurse Practitioner 04/16/24
--- OUTSIDE RECORDS SUMMARY | 2025-03-31 11:57 | XMS_ITS | Patient Health Record ---
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; no sig alcohol Nonsmoker; no sig alcohol Nonsmoker; no sig alcohol Nonsmoker; no sig alcohol Problems Problem Type SNOMED Code ICD Code Onset Dates Problem Status W/U Status Risk Notes Problem Screening for malignant neoplasm of colon (356414071) Encounter for screening for malignant neoplasm of colon (Z12.11) Active confirmed Problem History of adenomatous polyp of colon (275049823) History of adenomatous polyp of colon (Z86.010) Active confirmed Problem Change in bowel habit (52036619) Change in bowel habits (R19.4) Active confirmed Problem Diverticular disease of colon (382720031) Diverticulosis of large intestine without perforation or abscess without bleeding (K57.30) Active confirmed Problem Screening for malignant neoplasm of rectum (179584294) Encounter for screening for malignant neoplasm of rectum (Z12.12) Active confirmed Problem Preprocedural examination (679518171225707) Preprocedural examination (Z01.818) Active confirmed Problem Diarrhea of presumed infectious origin (disorder) (64196819) Diarrhea of infectious origin (A09) Active confirmed Problem Diarrhea (74113344) Diarrhea, unspecified type (R19.7) Active confirmed Plan [...] [place] [address] [place] [address] [id number] FRANNY FRANCISCO Self - patient is the insured [employer] ATT[employer] CLAIMS [address] [place] [address] [id number] FRANNY FRANCISCO Self - patient is the [...]
[2025-03-31 12:17] LABS: Folate 10.7 ng/mL (> or = 4.0); Vitamin B12 459 pg/mL (200-900)
== END 2025-03-31 09:24 | disposition home or self-care (01) ==
LOC: HO.LAB 09:23
PROVIDERS: PCP Nurse Practitioner Family; Visit Provider Nurse Practitioner Family
DX: M81.0 Age-related osteoporosis without current pathological fracture (principal); E55.9 Vitamin D deficiency, unspecified; D64.9 Anemia, unspecified; Z13.6 Encounter for screening for cardiovascular disorders
CPT/HCPCS: 36415; 80061; 82043; 82306; 82570; 82607; 82746; 84443; 85027